=== PATIENT | female | born 1960 | race Caucasian/White ===

== ENCOUNTER 2016-04-21 18:11 | Emergency (ER) | payer OTHER ==
[2016-04-21 18:16] VITALS: RESP 16
[2016-04-21] MEDS ORDERED: HYDROcodone/APAP 5-325MG 1 EACH TAB PO STA (19:09)
--- NOTE | 2016-04-21 19:43 | XR ---
EXAMINATION TYPE: XR Hip Complete LT DATE OF EXAM: 04/21/2016 7:32 PM COMPARISON: 06/28/2014 HISTORY: Hip pain TECHNIQUE: 2 views FINDINGS: There is a left hip prosthesis. I see no fracture nor dislocation. Sacroiliac joint appears normal. IMPRESSION: Left hip prosthesis without evidence of fracture. No change.
--- NOTE | 2016-04-21 19:44 | XR ---
EXAMINATION TYPE: XR knee 4V LT DATE OF EXAM: 04/21/2016 7:32 PM COMPARISON: NONE HISTORY: Knee pain TECHNIQUE: 4 views FINDINGS: I see no fracture nor dislocation. Joint spaces are normal. There is no sign of knee joint effusion. IMPRESSION: Negative left knee exam.
--- NOTE | 2016-04-21 20:10 | ED ---
Fall HPI - General Chief Complaint: Fall Stated Complaint: Fall-Knee Pain Time Seen by Provider: 04/21/16 18:13 Source: patient Mode of arrival: EMS - History of Present Illness Initial Comments: 55-year-old female presented for evaluation of left knee pain following mechanical fall while leaving her house. She states that she tripped over an object in her home causing her to fall forward onto her outstretched arms and knees. She denies any right knee pain and further denies any injury to the hands and wrists or elbows. Her left knee was quite sore and she was unable to get up requiring police assistance. She states that she is able to move the knee flexing and extending at but had significant pain upon weight- bearing. She is able to move the foot distal to injury and there is no change in her neurovascular status although she states a long-standing history of neuropathy to bilateral lower extremities. She denies any head trauma, anticoagulation use, or loss of consciousness. - Related Data Home Medications Medication Instructions Recorded Confirmed Amantadine HCl [Symmetrel] 100 mg PO TID 02/07/15 01/25/16 Gabapentin [Neurontin] 400 mg PO TID 02/07/15 01/25/16 Levothyroxine Sodium [Synthroid] 150 mcg PO DAILY 02/07/15 01/25/16 hydrOXYzine PAMOATE [Vistaril] 50 mg PO TID 02/07/15 01/25/16 traZODone HCL 150 mg PO HS 03/06/15 01/25/16 Escitalopram [Lexapro] 30 mg PO DAILY 01/25/16 01/25/16 Hair, Skin, And Nails 3 tab PO DAILY 01/25/16 01/25/16 OXcarbazepine [Trileptal] 600 mg PO BID 01/25/16 01/25/16 Topiramate [Topamax] 50 mg PO BID 01/25/16 01/25/16 busPIRone HCL [Buspar] 30 mg PO BID 01/25/16 01/25/16 Previous Rx's Medication Instructions Recorded Albuterol Inhaler [Ventolin Hfa 2 puff INHALATION RT-QID PRN #0 03/09/15 Inhaler] puff Budesonide-Formot 160-4.5 Mcg 2 puff INHALATION RT-BID #0 puff 03/09/15 [Symbicort 160-4.5 Mcg Inhaler] Aspirin 81 mg PO DAILY #1 chewable 01/25/16 Atorvastatin Calcium [Lipitor] 40 mg PO DAILY #30 tab 01/25/16 Lisinopril-Hctz 10-12.5 mg 1 each PO DAILY tab 01/25/16 [Zestoretic 10-12.5] Metoprolol Tartrate [Lopressor] 50 mg PO BID #60 tab 01/25/16 Nicotine 21Mg/24Hr Patch [Habitrol] 1 patch TRANSDERM DAILY #14 patch 01/25/16 Nitroglycerin Sl Tabs [Nitrostat] 0.4 mg SUBLINGUAL Q5M PRN #25 tab 01/25/16 HYDROcodone/APAP 5-325MG [[place] 1 - 2 tab PO Q6HR PRN #14 tab 04/21/16 5-325] Ibuprofen [Motrin] 800 mg PO Q8HR PRN #20 tab 04/21/16 Allergies Allergy/AdvReac Type Severity Reaction Status Date / Time Penicillins Allergy Itching Verified 04/21/16 18:28 Review of Systems ROS Statement: Those systems with pertinent positive or pertinent negative responses have been documented in the HPI. ROS Other: All systems not noted in ROS Statement are negative. Constitutional: Denies: fever, chills Eyes: Denies: eye pain, eye discharge ENT: Denies: dental pain, epistaxis, congestion Respiratory: Denies: cough, dyspnea Cardiovascular: Denies: chest pain, palpitations Gastrointestinal: Denies: abdominal pain, nausea, vomiting Genitourinary: Denies: urgency, dysuria Musculoskeletal: Reports: other (Left knee pain with mild swelling; denies any discoloration). Denies: back pain, joint swelling, myalgia Skin: Denies: rash, lesions Neurological: Denies: headache, weakness Past Medical History Past Medical History: Asthma, Chest Pain / Angina, Heart Failure, COPD, Eye Disorder, Fibromyalgia, Hyperlipidemia, Hypertension, Osteoarthritis (OA), Thyroid Disorder Additional Past Medical History / Comment(s): NIDDM type II, diabetic neuropathy in hands and feet, hypothyroid, bilateral cataracts, migraines, IBS, chronic pain, limited ROM L arm-"shoulder cartlidge problem". History of Any Multi-Drug Resistant Organisms: None Reported Past Surgical History: Joint Replacement, Orthopedic Surgery, Tubal Ligation Additional Past Surgical History / Comment(s): right foot surgery, total left hip arthroplasty, lumbar puncture, R breast surgery for horse bite wound, colonoscopy, 2003 cardiac cath-normal. Past Anesthesia/Blood Transfusion Reactions: No Reported Reaction Past Psychological History: ADD/ADHD, Anxiety, Bipolar, Depression Additional Psychological History / Comment(s): Pt resides with her daughter. She uses a cane prn. She drives. Pt states she has depression and has been suicidal in the past but not now or recently. No suicidal thoughts or plans at this time. She states she did attempt suicide years ago by cutting her wrists. 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 Past Drug Use History: None Reported - Past Family History Mother History Unknown: Yes Family Medical History: Pulmonary Embolus Father History Unknown: Yes Additional Family Medical History / Comment(s): Pt was adopted. General Exam Limitations: no limitations General appearance: alert, in no apparent distress Head exam: Present: atraumatic, normocephalic Eye exam: Present: normal appearance, EOMI ENT exam: Present: normal exam, normal oropharynx Neck exam: Present: normal inspection. Absent: tenderness Respiratory exam: Present: normal lung sounds bilaterally. Absent: respiratory distress Cardiovascular Exam: Present: regular rate, normal rhythm. Absent: bradycardia , tachycardia GI/Abdominal exam: Present: soft. Absent: distended, tenderness Rectal exam: Present: deferred Extremities exam: Present: full ROM, tenderness, other (Pain to left knee with passive flexion but maintains full range of motion; mild tenderness to palpation at the patellar ligament; negative joint space tenderness to palpation on the lateral and medial sides; intact popliteal pulse) Back exam: Present: normal inspection, full ROM. Absent: tenderness Neurological exam: Present: alert, altered, oriented X3 Psychiatric exam: Present: normal affect, normal mood Skin exam: Present: warm, dry, intact Course Vital Signs 04/21/16 18:12 Temperature 97.9 F Pulse Rate 56 L Respiratory 16 Rate Blood Pressure 157/98 O2 Sat by Pulse 97 Oximetry Medical Decision Making - Medical Decision Making 55-year-old female presented for evaluation of left knee pain after mechanical fall from standing. There are no other injuries, she denies loss of consciousness, she denies anticoagulation use, and she denies any head or neck pain. Physical examination reveals left knee tenderness at the patellar ligament without any joint space pain to palpation. She has a normal popliteal artery pulse to palpation. She maintains motor and sensation distal to the injury at her feet and has an intact dorsalis pedis pulse. She has full passive range of motion of the left knee with some mild tenderness at maximum flexion. We'll obtain an x-ray of the knee and provide pain control. X-ray shows no acute osseous abnormality and no joint effusion. The patient was reevaluated and had improvement in her pain. She was given a knee immobilizer and instructed to follow-up with an orthopedic surgeon. She was also instructed to schedule a follow up appointment with her PCP but to return if her symptoms should worsen or persist. SHe acknowledged an understanding of this information and agreed with this plan of care. Disposition Clinical Impression: Fall, Contusion of left knee Disposition: HOME SELF-CARE Condition: Stable Instructions: Knee Pain (ED), Swollen Knee Joint (ED) Additional Instructions: Please use medication as discussed. Please follow up with family doctor if symptoms have not improved over the next two days. Please return to the emergency room if your symptoms increase or worsen or for any other concerns. Prescriptions: HYDROcodone/APAP 5-325MG [[place] 5-325] 1 - 2 tab PO Q6HR PRN #14 tab PRN Reason: Analgesia Ibuprofen [Motrin] 800 mg PO Q8HR PRN #20 tab PRN Reason: Analgesia Referrals: Erich Milner MD [Primary Care Provider] - 1-2 days Time of Disposition: 20:10
[2016-04-21 20:22] VITALS: BP 164/98; PULSE 61; TEMP 97.8
== END 2016-04-21 20:21 | disposition home or self-care (01) ==
LOC: EC 18:11
DX: S80.02XA Contusion of left knee, initial encounter (principal); W01.0XXA Fall on same level from slipping, tripping and stumbling without subsequent striking against object, initial encounter; J44.9 Chronic obstructive pulmonary disease, unspecified; E78.5 Hyperlipidemia, unspecified; M79.7 Fibromyalgia; I10 Essential (primary) hypertension; E11.40 Type 2 diabetes mellitus with diabetic neuropathy, unspecified; E03.9 Hypothyroidism, unspecified; Z79.899 Other long term (current) drug therapy; Z79.82 Long term (current) use of aspirin; Z88.0 Allergy status to penicillin; F17.200 Nicotine dependence, unspecified, uncomplicated; F41.9 Anxiety disorder, unspecified; F32.9 Major depressive disorder, single episode, unspecified
CPT/HCPCS: 73502; 99283

== ENCOUNTER 2016-10-25 11:05 | Day surgery (SDC) | payer OTHER ==
[2016-10-23 14:48] VITALS: BMI 38.8
[2016-10-25 12:05] VITALS: TEMP 98.6
[2016-10-25] MEDS: LACTATED RINGERS 1,000 ML IV SCH ×2 (12:12→12:18)
[2016-10-25] MEDS ORDERED: LIDOCAINE 1% 20 ML VIAL (10MG/ML) FOR IV START INTRADERMA ONE (12:12)
[2016-10-25] MEDS ORDERED: PROPOFOL 10 MG/ML 20 ML VIAL IV ONE (12:21)
--- NOTE | 2016-10-25 12:48 | P.PCN ---
Date of Procedure: 10/25/16 Preoperative Diagnosis: Postoperative Diagnosis: Procedure(s) Performed: Procedure: Colonoscopy and polypectomy. Preoperative diagnosis: Screening for neoplasia. Postoperative diagnosis: Distal sigmoid polyp snared but no large polyps or cancer. Preparation: HalfLytely prep. Sedation: Was provided by anesthesia. Brief clinical history: The patient is a 56-year-old female who is scheduled for this evaluation for screening for neoplasia.. Her last exam was in March 2010. The patient has no abdominal complaints, bleeding or anemia. Procedure: With the patient on her left lateral decubitus position and after informed consent and adequate sedation, the perianal area was inspected and it did not show any fissures or fistulas. There were no masses felt on digital rectal examination. The Olympus CFQ 160L video colonoscope was then inserted in the rectum in the usual fashion and advanced to the cecum. There was a small polyp in the distal sigmoid which I snared and retrieved by suction but there were no large polyps or cancer. The mucosa appeared healthy. No obvious diverticular disease or other pathology. I retroflexed endoscope in the rectum before the endoscope was withdrawn. The patient tolerated the procedure well. Plan: The patient was reassured. She will follow-up with you as planned and I anticipate repeating this exam in 5 years. Implants: Indications for Procedure: Operative Findings: Description of Procedure:
[2016-10-25 12:53] VITALS: RESP 16
[2016-10-25 13:09] VITALS: BP 148/67; PULSE 56
== END 2016-10-25 14:11 | disposition home or self-care (01) ==
LOC: ORWHC2ENDO 11:05
DX: Z12.11 Encounter for screening for malignant neoplasm of colon (principal); K63.5 Polyp of colon; J44.9 Chronic obstructive pulmonary disease, unspecified; I10 Essential (primary) hypertension; E78.5 Hyperlipidemia, unspecified; M79.7 Fibromyalgia; M19.90 Unspecified osteoarthritis, unspecified site; M06.9 Rheumatoid arthritis, unspecified; E07.9 Disorder of thyroid, unspecified; G62.9 Polyneuropathy, unspecified; Z79.891 Long term (current) use of opiate analgesic; Z79.899 Other long term (current) drug therapy; Z88.0 Allergy status to penicillin; Z72.0 Tobacco use
CPT/HCPCS: 88305; 45385; J2704

== ENCOUNTER 2017-12-01 15:17 | Observation (INO) | payer OTHER ==
[2017-12-01 15:27] VITALS: RESP 18
[2017-12-01] MEDS ORDERED: ASPIRIN 81 MG PO STA (15:32)
[2017-12-01] MEDS ORDERED: NITROGLYCERIN OINT 1 INCH/GM PACKET TOPICAL STA (15:32)
--- NOTE | 2017-12-01 15:35 | ED ---
General Adult HPI - General Chief complaint: Chest Pain Stated complaint: Chest pain Time Seen by Provider: 12/01/17 15:29 Source: patient, EMS, RN notes reviewed Mode of arrival: EMS Limitations: no limitations - History of Present Illness Initial comments: Patient is a pleasant 57-year-old female presenting to the emergency Department with chest discomfort. Onset was around 1:30. Symptoms were somewhat severe however now are near resolved. Discomfort feels like tightness and ache in the chest without radiation. There was some associated dyspnea. There was some associated nausea. Patient did feel sweaty however feels sweaty all the time. Patient has had similar symptoms previously with negative cardiac evaluation. Patient does have history of stent placement approximately 30 years ago. - Related Data Home Medications Medication Instructions Recorded Confirmed Levothyroxine Sodium [Synthroid] 150 mcg PO DAILY 02/07/15 12/01/17 OXcarbazepine [Trileptal] 600 mg PO BID 01/25/16 12/01/17 busPIRone HCL [Buspar] 30 mg PO BID 01/25/16 12/01/17 Albuterol Inhaler [Ventolin Hfa 2 puff INHALATION RT-QID PRN 10/23/16 12/01/17 Inhaler] Budesonide-Formot 160-4.5 Mcg 2 puff INHALATION RT-BID PRN 10/23/16 12/01/17 [Symbicort 160-4.5 Mcg Inhaler] traZODone HCL 100 mg PO HS 10/23/16 12/01/17 Atorvastatin Calcium [Lipitor] 80 mg PO HS 12/01/17 12/01/17 Baclofen 10 mg PO HS 12/01/17 12/01/17 Cholecalciferol [Vitamin D3] 1,000 unit PO DAILY 12/01/17 12/01/17 Cyanocobalamin (Vitamin B-12) 1,000 mcg PO DAILY 12/01/17 12/01/17 [Vitamin B-12] Escitalopram Oxalate [Lexapro] 40 mg PO DAILY 12/01/17 12/01/17 Etodolac [Lodine] 400 mg PO BID 12/01/17 12/01/17 Lisinopril Unknown Dose 1 tab PO HS 12/01/17 12/01/17 Metoprolol Tartrate [Lopressor] 50 mg PO DAILY 12/01/17 12/01/17 Multivitamins, Thera [Multivitamin 1 tab PO DAILY 12/01/17 12/01/17 (formulary)] Propranolol HCl [Inderal] 120 mg PO BID 12/01/17 12/01/17 metFORMIN HCL 1,000 mg PO BID 12/01/17 12/01/17 Previous Rx's Medication Instructions Recorded Nitroglycerin Sl Tabs [Nitrostat] 0.4 mg SUBLINGUAL Q5M PRN #25 tab 01/25/16 Allergies Allergy/AdvReac Type Severity Reaction Status Date / Time Penicillins Allergy Severe Itching Verified 12/01/17 15:30 Review of Systems ROS Statement: Those systems with pertinent positive or pertinent negative responses have been documented in the HPI. ROS Other: All systems not noted in ROS Statement are negative. Constitutional: Denies: fever Eyes: Denies: eye pain ENT: Denies: ear pain Respiratory: Denies: cough Cardiovascular: Reports: as per HPI, chest pain Endocrine: Denies: fatigue Gastrointestinal: Denies: abdominal pain Genitourinary: Denies: dysuria Musculoskeletal: Denies: back pain Skin: Denies: rash Neurological: Denies: weakness Past Medical History Past Medical History: Asthma, Chest Pain / Angina, COPD, Eye Disorder, Fibromyalgia, Hyperlipidemia, Hypertension, Osteoarthritis (OA), Pneumonia, Rheumatoid Arthritis (RA) Additional Past Medical History / Comment(s): migraines, diabetic neuropathy in hands and feet, bilateral cataracts, limited ROM billy arm-"shoulder cartlidge problem". swelling of lower legs and feet, History of Any Multi-Drug Resistant Organisms: None Reported Past Surgical History: Heart Catheterization, Joint Replacement, Orthopedic Surgery, Tubal Ligation Additional Past Surgical History / Comment(s): right foot surgery, total left hip arthroplasty, lumbar puncture, R breast surgery for horse bite wound, Past Anesthesia/Blood Transfusion Reactions: Motion Sickness Past Psychological History: ADD/ADHD, Anxiety, Bipolar, Depression Smoking Status: Current every day smoker Past Alcohol Use History: None Reported Past Drug Use History: None Reported - Past Family History Mother History Unknown: Yes Family Medical History: Unable to Obtain Additional Family Medical History / Comment(s): pt adopted-no hx Father History Unknown: Yes Additional Family Medical History / Comment(s): Pt was adopted. General Exam Limitations: no limitations General appearance: alert, in no apparent distress Head exam: Present: atraumatic Eye exam: Present: normal appearance, PERRL ENT exam: Present: normal oropharynx Neck exam: Present: normal inspection Respiratory exam: Present: normal lung sounds bilaterally Cardiovascular Exam: Present: regular rate, normal rhythm Expanded Peripheral pulses: 2+: Radial (R), Radial (L), Posterior Tibialis (R), Posterior Tibialis (L) GI/Abdominal exam: Present: soft. Absent: tenderness Extremities exam: Present: pedal edema (Patient states chronic). Absent: calf tenderness Neurological exam: Present: alert Psychiatric exam: Present: normal affect, normal mood Skin exam: Present: normal color Course Vital Signs 12/01/17 12/01/17 15:24 16:28 Temperature 98.7 F Pulse Rate 66 59 L Respiratory 18 18 Rate Blood Pressure 166/74 144/66 O2 Sat by Pulse 92 L 98 Oximetry EKG Findings - EKG Comments: EKG Findings:: Normal sinus rhythm 60. AK 198. QRS 78. QT 436. QTc 436. Normal axis. Normal QRS. No acute ST change. Medical Decision Making - Medical Decision Making Patient reevaluated and resting comfortably in bed. No discomfort at this time. Patient updated on results and plan. Dr. ralph has been paged for hospital admission. Patient was also updated on abnormal CT findings and need for further follow-up and investigation regarding this. - Lab Data Result diagrams: 12/01/17 15:15 12/01/17 15:15 Lab Results 12/01/17 12/01/17 12/01/17 Range/Units 15:15 15:15 15:15 WBC 7.1 (3.8-10.6) k/uL RBC 4.04 (3.80-5.40) m/uL Hgb 11.4 (11.4-16.0) gm/dL Hct 35.7 (34.0-46.0) % MCV 88.4 (80.0-100.0) fL MCH 28.3 (25.0-35.0) pg MCHC 32.1 (31.0-37.0) g/dL RDW 14.8 (11.5-15.5) % Plt Count 256 (150-450) k/uL Neutrophils % 55 % Lymphocytes % 31 % Monocytes % 5 % Eosinophils % 6 % Basophils % 0 % Neutrophils # 3.9 (1.3-7.7) k/uL Lymphocytes # 2.2 (1.0-4.8) k/uL Monocytes # 0.3 (0-1.0) k/uL Eosinophils # 0.5 (0-0.7) k/uL Basophils # 0.0 (0-0.2) k/uL PT (9.0-12.0) sec INR (<1.2) APTT (22.0-30.0) sec D-Dimer (<0.60) mg/L FEU Sodium 142 (137-145) mmol/L Potassium 4.3 (3.5-5.1) mmol/L Chloride 109 H (98-107) mmol/L Carbon Dioxide 28 (22-30) mmol/L Anion Gap 5 mmol/L BUN 10 (7-17) mg/dL Creatinine 0.65 (0.52-1.04) mg/dL Est GFR (CKD-EPI)AfAm >90 (>60 ml/min/1.73 sqM) Est GFR (CKD-EPI)NonAf >90 (>60 ml/min/1.73 sqM) Glucose 145 H (74-99) mg/dL Calcium 8.8 (8.4-10.2) mg/dL Magnesium 1.9 (1.6-2.3) mg/dL Total Bilirubin 0.3 (0.2-1.3) mg/dL AST 30 (14-36) U/L ALT 31 (9-52) U/L Alkaline Phosphatase 119 (38-126) U/L Total Creatine Kinase 79 (30-135) U/L CK-MB (CK-2) 1.2 (0.0-2.4) ng/mL CK-MB (CK-2) Rel Index 1.5 Troponin I <0.012 (0.000-0.034) ng/mL NT-Pro-B Natriuret Pep pg/mL Total Protein 6.0 L (6.3-8.2) g/dL Albumin 3.3 L (3.5-5.0) g/dL 12/01/17 12/01/17 Range/Units 15:15 15:15 WBC (3.8-10.6) k/uL RBC (3.80-5.40) m/uL Hgb (11.4-16.0) gm/dL Hct (34.0-46.0) % MCV (80.0-100.0) fL MCH (25.0-35.0) pg MCHC (31.0-37.0) g/dL RDW (11.5-15.5) % Plt Count (150-450) k/uL Neutrophils % % Lymphocytes % % Monocytes % % Eosinophils % % Basophils % % Neutrophils # (1.3-7.7) k/uL Lymphocytes # (1.0-4.8) k/uL Monocytes # (0-1.0) k/uL Eosinophils # (0-0.7) k/uL Basophils # (0-0.2) k/uL PT 10.1 (9.0-12.0) sec INR 1.0 (<1.2) APTT 25.3 (22.0-30.0) sec D-Dimer 0.80 H (<0.60) mg/L FEU Sodium (137-145) mmol/L Potassium (3.5-5.1) mmol/L Chloride (98-107) mmol/L Carbon Dioxide (22-30) mmol/L Anion Gap mmol/L BUN (7-17) mg/dL Creatinine (0.52-1.04) mg/dL Est GFR (CKD-EPI)AfAm (>60 ml/min/1.73 sqM) Est GFR (CKD-EPI)NonAf (>60 ml/min/1.73 sqM) Glucose (74-99) mg/dL Calcium (8.4-10.2) mg/dL Magnesium (1.6-2.3) mg/dL Total Bilirubin (0.2-1.3) mg/dL AST (14-36) U/L ALT (9-52) U/L Alkaline Phosphatase (38-126) U/L Total Creatine Kinase (30-135) U/L CK-MB (CK-2) (0.0-2.4) ng/mL CK-MB (CK-2) Rel Index Troponin I (0.000-0.034) ng/mL NT-Pro-B Natriuret Pep 298 pg/mL Total Protein (6.3-8.2) g/dL Albumin (3.5-5.0) g/dL - Radiology Data Radiology results: report reviewed (CT angios of the chest negative for pulmonary embolism. There is coarse interstitial infiltrates that could be related to fibrosis or sarcoidosis.), image reviewed (Checks x-ray does show diffuse interstitial changes.) Disposition Clinical Impression: Chest pain Disposition: ADMITTED IP TO THIS HOSP Is patient prescribed a controlled substance at d/c from ED?: No Referrals: None,Stated [Primary Care Provider] - 1-2 days Decision Time: 17:35
[2017-12-01 15:44] LABS: Basophils % (A) 0 %; Eosinophils # (A) 0.5 k/uL (0-0.7); Eosinophils % (A) 6 %; HCT 35.7 % (34.0-46.0); HGB 11.4 gm/dL (11.4-16.0); Lymphocytes # (A) 2.2 k/uL (1.0-4.8); Lymphocytes % (A) 31 %; MCH 28.3 pg (25.0-35.0); MCHC 32.1 g/dL (31.0-37.0); MCV 88.4 fL (80.0-100.0); Mean Platelet Volume 6.6; Monocytes # (A) 0.3 k/uL (0-1.0); Monocytes % (A) 5 %; Neutrophils # (A) 3.9 k/uL (1.3-7.7); Neutrophils % (A) 55 %; Platelet Count 256 k/uL (150-450); RBC 4.04 m/uL (3.80-5.40); RDW 14.8 % (11.5-15.5); WBC 7.1 k/uL (3.8-10.6)
[2017-12-01 15:55] LABS: ALT 31 U/L (9-52); AST 30 U/L (14-36); Albumin 3.3 g/dL (3.5-5.0); Alkaline Phosphatase 119 U/L (38-126); Anion Gap 5 mmol/L; Blood Urea Nitrogen 10 mg/dL (7-17); Calcium 8.8 mg/dL (8.4-10.2); Carbon Dioxide 28 mmol/L (22-30); Chloride 109 mmol/L (98-107); Glucose 145 mg/dL (74-99); Magnesium 1.9 mg/dL (1.6-2.3); Potassium 4.3 mmol/L (3.5-5.1); Sodium 142 mmol/L (137-145); Total Bilirubin 0.3 mg/dL (0.2-1.3)
--- NOTE | 2017-12-01 15:55 | XR ---
EXAMINATION TYPE: XR chest 2V DATE OF EXAM: 12/01/2017 COMPARISON: 01/25/2016 HISTORY: Chest pain TECHNIQUE: Frontal and lateral views of the chest are obtained. FINDINGS: There is coarse pulmonary interstitial infiltrates. There is no pleural effusion. There ar e chest leads. IMPRESSION: Pulmonary infiltrates are increased compared to old exam. Congestive heart failure is po ssible. I see no pleural fluid however to suggest heart failure. This could relate to progressive pul monary fibrosis.
[2017-12-01 15:57] LABS: Partial Thromboplastin Time 25.3 sec (22.0-30.0); Prothrombin Time 10.1 sec (9.0-12.0)
[2017-12-01 15:59] LABS: Creatine Kinase 79 U/L (30-135)
[2017-12-01 16:00] LABS: D-Dimer 0.8 mg/L FEU (<0.60)
[2017-12-01 16:13] LABS: Creatine Kinase MB 1.2 ng/mL (0.0-2.4); Troponin I <0.012 ng/mL (0.000-0.034)
--- NOTE | 2017-12-01 16:48 | CT ---
EXAMINATION TYPE: CT angio chest DATE OF EXAM: 12/01/2017 4:30 PM COMPARISON: 02/04/2016 HISTORY: Sternal pain and pressure. CT DLP: 624 mGycm Automated exposure control for dose reduction was used. CONTRAST: CTA scan of the thorax is performed with IV Contrast, patient injected with 64 mL of Isovue 370, pulm onary embolism protocol. There are 3-D post processed images.. FINDINGS: There is general coarsening interstitial infiltrate throughout the lungs. Heart is slightly enlarged. There is no pleural effusion. There are multiple mediastinal and bronchial lymph nodes measure up to 1.5 cm. Thoracic aorta is intact. There is no evidence of aneurysm or dissection. There is no perica rdial effusion. I see no filling defects in the pulmonary arteries.. The bony thorax is intact. There is spurring in the thoracic spine. IMPRESSION: NO EVIDENCE OF PULMONARY EMBOLISM. MEDIASTINAL AND BRONCHIAL ADENOPATHY. EXTENSIVE COARSE INTERSTITIA L PULMONARY INFILTRATES ARE WORSE THAN OLD EXAM AND THIS COULD RELATE TO PROMINENT FIBROSIS AND SARCO IDOSIS.
[2017-12-01] MEDS ORDERED: NITROGLYCERIN SL TABS 0.4 MG TAB SUBLINGUAL PRN ×2 (17:35→19:22)
[2017-12-01] MEDS ORDERED: ALBUTEROL NEBULIZED 2.5 MG/3 ML INHALATION PRN (19:22)
[2017-12-01] MEDS ORDERED: SYMBICORT 160-4.5 MCG INHALER INHALATION PRN (19:22)
[2017-12-01] MEDS ORDERED: ACETAMINOPHEN TAB 325 MG TAB PO PRN (19:24)
[2017-12-01] MEDS ORDERED: HYDROcodone/APAP 5-325MG 1 EACH TAB PO PRN (20:18)
[2017-12-01] MEDS ORDERED: HYDROmorphone 1 MG/ML 1 ML SYRINGE IVP PRN (20:18)
[2017-12-01] MEDS ORDERED: TEMAZEPAM 15 MG CAP PO PRN (20:18)
[2017-12-01 20:22] LABS: Glucose,Whole Blood 146 mg/dL (75-99)
[2017-12-01] MEDS: NICOTINE 21MG/24HR PATCH TRANSDERM SCH (20:22)
[2017-12-01] MEDS: OXcarbazepine 300 MG TAB PO SCH (20:23)
[2017-12-01] MEDS: traMADol 50 MG TAB PO SCH (20:23)
[2017-12-01] MEDS: metFORMIN 500 MG TAB PO SCH (20:23)
[2017-12-01] MEDS: busPIRone HCl 10 MG TAB PO SCH (20:24)
[2017-12-01] MEDS: INSULIN ASPART 100 UNIT/ML 1 ML 10 ML VIAL SQ SCH (20:25)
[2017-12-01] MEDS: PANTOPRAZOLE 40 MG/10 ML VIAL IVP SCH (20:25)
[2017-12-01] MEDS ORDERED: BACLOFEN 10 MG TAB PO SCH (21:00)
[2017-12-01] MEDS ORDERED: [UNRECOGNIZED DRUG - OTHER] PO SCH (21:00)
[2017-12-01] MEDS ORDERED: ATORVASTATIN 80 MG TAB PO SCH (21:00)
[2017-12-01] MEDS ORDERED: traZODone HCL 100 MG TAB PO SCH (21:00)
[2017-12-01 22:08] LABS: Creatine Kinase 73 U/L (30-135)
[2017-12-01 22:21] LABS: Creatine Kinase MB 0.9 ng/mL (0.0-2.4); Troponin I <0.012 ng/mL (0.000-0.034)
--- NOTE | 2017-12-01 22:47 | HP ---
HISTORY AND PHYSICAL DATE OF SERVICE: 12/01/2017 CHIEF COMPLAINT: Chest pain. HISTORY OF PRESENT ILLNESS: This 57-year-old woman with a past history of asthma, COPD, diabetes type 2, fibromyalgia, hyperlipidemia, being followed by primary physician in the [facility], was complaining of chest pain. The pain was felt in the anterior part of the chest, at about 1:30 in the morning. It was sharp in character with subsequently tightness was felt. There was no shortness of breath and nausea. The patient also felt sweaty also. There is no radiation of pain elsewhere. Otherwise, patient came to [facility] and was admitted for further evaluation. The patient had history of stent placement apparently 30 years ago. The patient apparently had unsuccessful attempts at stress test previously according to her. There is no history of fever or rigors. No headache, loss of consciousness, seizures. PAST MEDICAL HISTORY: History of asthma, COPD, diabetes type 2, hypertension, hypertension, DJD, history of pneumonia. MEDICATIONS: 1. Home medications are lisinopril 1 tablet p.o. daily. 2. Metformin 1000 mg p.o. b.i.d. 3. Lodine 400 mg b.i.d. 4. Trazodone 100 mg at bedtime. 5. BuSpar 30 mg b.i.d. 6. Inderal 120 mg p.o. b.i.d. 7. Trileptal 600 mg b.i.d. 8. Nitroglycerin 0.6 mg p.r.n. 9. Multivitamins 1 p.o. daily. 10.Lopressor 50 mg daily. 11.Synthroid 150 mcg p.o. daily. 12.Lexapro 40 mg daily. 13.Vitamin B 2000 mcg daily. 14.Vitamin D 3000 daily. 15.Symbicort 0.5 two puffs b.i.d. 16.Baclofen 10 mg at bedtime. 17.Lipitor 80 mg at bedtime. 18.Albuterol 2 puffs q.i.d. p.r.n. ALLERGIES: PENICILLIN. FAMILY HISTORY: The patient is adopted. SOCIAL HISTORY: History of smoking, continued, ongoing. No alcohol intake. REVIEW OF SYSTEMS: ENT: No diminished vision or hearing. CARDIOVASCULAR: As mentioned. GI: As mentioned. : No dysuria. NERVOUS SYSTEM: No numbness or weakness. ALLERGY/IMMUNOLOGY: As mentioned earlier. HEMATOLOGY/ONCOLOGY: No history of anemia. CONSTITUTIONAL: As mentioned earlier. PSYCHIATRY: As mentioned. PHYSICAL EXAMINATION: Alert, oriented x3. Pulse 59, blood pressure 130/68, respirations 18, temperature 98.6, pulse ox 98% on 2 L. HEENT: Conjunctivae normal. Oral mucosa moist. NECK: No jugular venous distention. No lymph node enlargement. CARDIOVASCULAR: S1, S2 muffled. esm + No S3. LUNGS: Breath sounds diminished in the bases. Few scattered rhonchi. No crackles. ABDOMEN: Soft, nontender. No mass palpable. EXTREMITIES: Legs no edema. No swelling. NERVOUS SYSTEM: Higher functions as mentioned. Moves all limbs equally. LYMPHATICS: No lymph node enlargement in the neck, axillae or groin. SKIN: No rash. LABS: CBC within normal. D-dimer 0.8. Glucose 145. ASSESSMENT: 1. Chest pain, possible unstable angina. 2. History of coronary artery disease with stent. 3. History of asthma. 4. History of chronic obstructive pulmonary disease. 5. Diabetes mellitus type 2. 6. Continued ongoing nicotine dependence. h/o mild as 7. Fibromyalgia. 8. Hypertension. 9. Obesity with body mass index of 402. 10.Degenerative joint disease. 11.Rheumatoid arthritis. 12.History of migraines. 13.History of attention deficit hyperactive disorder. 14.History of bipolar depression. RECOMMENDATIONS: Recommend to continue current medications and symptomatic treatment. Otherwise at this time I recommend to rule out myocardial infarction as per protocol. Otherwise closely follow with Cardiology. Possible stress test or cardiac cath. Guarded prognosis because of multiple complex medical issues. Further recommendations to follow. We will monitor blood sugars closely. Resume the home medications. Discussed with the patient who understands and consents. MMODL / IJN: [id number] / МАРИЯ
[2017-12-02 01:20] LABS: Appearance,Urine Clear (Clear); Bilirubin,Urine 2+ (Negative); Blood,Urine Negative (Negative); Color,Urine Yellow; Glucose,Urine (UA) Negative (Negative); Ketones,Urine Negative (Negative); Leukocyte Esterase,Urine Negative (Negative); Nitrite,Urine Negative (Negative); Protein,Urine Negative (Negative); Specific Gravity,Urine 1.028 (1.001-1.035); Urobilinogen,Urine <2.0 mg/dL (<2.0)
[2017-12-02] MEDS: NITROGLYCERIN OINT 1 INCH/GM PACKET TOPICAL SCH ×2 (02:54→05:15)
[2017-12-02] MEDS: ALPRAZolam 0.25 MG TAB PO PRN ×2 (02:58→14:33)
[2017-12-02 02:59] LABS: Basophils % (A) 0 %; Eosinophils # (A) 0.5 k/uL (0-0.7); Eosinophils % (A) 6 %; HCT 35.7 % (34.0-46.0); HGB 11.5 gm/dL (11.4-16.0); Lymphocytes # (A) 2.6 k/uL (1.0-4.8); Lymphocytes % (A) 32 %; MCH 28.5 pg (25.0-35.0); MCHC 32.3 g/dL (31.0-37.0); MCV 88.2 fL (80.0-100.0); Mean Platelet Volume 7.8; Monocytes # (A) 0.3 k/uL (0-1.0); Monocytes % (A) 4 %; Neutrophils # (A) 4.6 k/uL (1.3-7.7); Neutrophils % (A) 57 %; Platelet Count 231 k/uL (150-450); RBC 4.04 m/uL (3.80-5.40); WBC 8.1 k/uL (3.8-10.6)
[2017-12-02] MEDS ORDERED: PROCHLORPERAZINE 5 MG TAB PO PRN (03:02)
[2017-12-02 03:23] LABS: Creatine Kinase 69 U/L (30-135)
[2017-12-02 03:25] LABS: Anion Gap 7 mmol/L; Blood Urea Nitrogen 11 mg/dL (7-17); Calcium 9.1 mg/dL (8.4-10.2); Carbon Dioxide 28 mmol/L (22-30); Chloride 106 mmol/L (98-107); Cholesterol 117 mg/dL (<200); Glucose 121 mg/dL (74-99); HDL Cholesterol 51 mg/dL (40-60); LDL Cholesterol,Calculated 34 mg/dL (0-99); Potassium 4.1 mmol/L (3.5-5.1); Sodium 141 mmol/L (137-145); Triglycerides 158 mg/dL (<150)
[2017-12-02 03:34] LABS: Creatine Kinase MB 0.8 ng/mL (0.0-2.4); Troponin I <0.012 ng/mL (0.000-0.034)
[2017-12-02] MEDS ORDERED: LEVOTHYROXINE 75 MCG TAB PO SCH (06:30)
[2017-12-02 07:16] LABS: Glucose,Whole Blood 134 mg/dL (75-99)
[2017-12-02] MEDS: INSULIN ASPART 100 UNIT/ML 1 ML 10 ML VIAL SQ SCH ×2 (08:45→12:55)
[2017-12-02] MEDS ORDERED: CHOLECALCIFEROL 1,000 UNIT TAB PO SCH (09:00)
[2017-12-02] MEDS ORDERED: ESCITALOPRAM 20 MG TAB PO SCH (09:00)
[2017-12-02] MEDS ORDERED: CYANOCOBALAMIN 500 MCG TAB PO SCH (09:00)
[2017-12-02] MEDS ORDERED: ASPIRIN 81 MG PO SCH (09:00)
[2017-12-02] MEDS ORDERED: METOPROLOL TARTRATE 50 MG TAB PO SCH (09:00)
[2017-12-02] MEDS ORDERED: ASPIRIN 325 MG TAB PO SCH (09:00)
[2017-12-02] MEDS: metFORMIN 500 MG TAB PO SCH (10:20)
--- NOTE | 2017-12-02 11:11 | P.CRDCN ---
History of Present Illness History of present illness: Mrs. France is a pleasant 57-year-old female past medical history significant for asthma, COPD, diabetes mellitus, dyslipidemia, hypertension, anxiety and depression. She denies history of coronary artery disease and doesn' t follow with a gas engine performance engineer for any reason. We have been asked to see her in consultation for chest pain. She complains of a stabbing chest pain yesterday while sitting down watching TV. The pain was in the mid-sternal region and radiated up into the left shoulder, left neck and down the left arm. The stabbing then turned into a heavy pressure described as an elephant sitting on her chest. She was short of breath, light headed and diaphoretic. The stabbing persisted for approximately 4 hours and then subsided on its own. The pressure has persisted and is still mildly present. She also has been coughing up yellow sputum the last week or so and feels increasingly short of breath beyond her baseline shortness of breath secondary to COPD. She is a chronic smoker with no interest in quiting. EKG reveals sinus mechanism with no acute ST or T-wave abnormalities noted. Chest xray shows pulmonary fibrosis. CTA chest negative for PE and again shows pulmonary fibrosis. Laboratory data reviewed, hemoglobin 11.5, platelets 231, sodium 141, potassium 4.1, magnesium 1.9, cardiac enzymes negative 3, NT proBNP 298, LDL 34 and HDL 51, triglycerides 158. Current cardiac medications include atorvastatin 80 mg daily, Lopressor 50 mg daily, propanolol 120 mg twice a day and she states she takes lisinopril but is unsure if the dose. Pharmacy she uses has been called and they have no record of lisinopril ever being filled. Most recent echocardiogram obtained 2016 reveals preserved LV systolic function with EF 60-65%. Most recent stress test done 2016 was a dobutamine stress echo which was inconclusive secondary to not achieving target heart rate. Review of Systems At the time of my exam: CONSTITUTIONAL: Denies fever. Denies chills. EYES: Denies blurred vision. Denies vision changes. Denies eye pain. EARS, NOSE, MOUTH & THROAT: Denies headache. Denies sore throat. Denies ear pain. CARDIOVASCULAR: Denies chest pain. Complains of shortness of breath. Denies orthopnea. Denies PND. Denies palpitations. RESPIRATORY: Denies cough. GASTROINTESTINAL: Denies abdominal pain. Denies diarrhea. Denies constipation. Denies nausea. Denies vomiting. MUSCULOSKELETAL: Denies myalgias. INTEGUMENTARY: Denies pruitis. Denies rash. NEUROLOGIC: Denies numbness. Denies tingling. Denies weakness. PSYCHIATRIC: Denies anxiety. Denies depression. ENDOCRINE: Denies fatigue. Denies weight change. Denies polydipsia. Denies polyurina. GENITOURINARY: Denies burning, hematuria or urgency with micturation. HEMATOLOGIC: Denies history of anemia. Denies bleeding. Past Medical History Past Medical History: Asthma, Chest Pain / Angina, COPD, Diabetes Mellitus, Eye Disorder, Fibromyalgia, Hyperlipidemia, Hypertension, Osteoarthritis (OA), Pneumonia, Rheumatoid Arthritis (RA) Additional Past Medical History / Comment(s): migraines, diabetic neuropathy in hands and feet, bilateral cataracts, limited ROM billy arm-"shoulder cartlidge problem". swelling of lower legs and feet, History of Any Multi-Drug Resistant Organisms: None Reported Past Surgical History: Heart Catheterization, Joint Replacement, Orthopedic Surgery, Tubal Ligation Additional Past Surgical History / Comment(s): right foot surgery, total left hip arthroplasty, lumbar puncture, R breast surgery for horse bite wound, Past Anesthesia/Blood Transfusion Reactions: Motion Sickness Past Psychological History: ADD/ADHD, Anxiety, Bipolar, Depression Additional Psychological History / Comment(s): Pt resides with her daughter. She uses a cane prn. She drives. Pt states she has depression and has been suicidal in the past but not now or recently. No suicidal thoughts or plans at this time. She states she did attempt suicide years ago by cutting her wrists. 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 smokes 1 PPD Past Drug Use History: None Reported - Past Family History Mother History Unknown: Yes Family Medical History: Unable to Obtain Additional Family Medical History / Comment(s): pt adopted-no hx Father History Unknown: Yes Additional Family Medical History / Comment(s): Pt was adopted. Medications and Allergies Home Medications Medication Instructions Recorded Confirmed Type Levothyroxine Sodium [Synthroid] 150 mcg PO DAILY 02/07/15 12/01/17 History Nitroglycerin Sl Tabs [Nitrostat] 0.4 mg SUBLINGUAL Q5M PRN #25 tab 01/25/16 Rx OXcarbazepine [Trileptal] 600 mg PO BID 01/25/16 12/01/17 History busPIRone HCL [Buspar] 30 mg PO BID 01/25/16 12/01/17 History Albuterol Inhaler [Ventolin Hfa 2 puff INHALATION RT-QID PRN 10/23/16 12/01/17 History Inhaler] Budesonide-Formot 160-4.5 Mcg 2 puff INHALATION RT-BID PRN 10/23/16 12/01/17 History [Symbicort 160-4.5 Mcg Inhaler] traZODone HCL 100 mg PO HS 10/23/16 12/01/17 History Atorvastatin Calcium [Lipitor] 80 mg PO HS 12/01/17 12/01/17 History Baclofen 10 mg PO HS 12/01/17 12/01/17 History Cholecalciferol [Vitamin D3] 1,000 unit PO DAILY 12/01/17 12/01/17 History Cyanocobalamin (Vitamin B-12) 1,000 mcg PO DAILY 12/01/17 12/01/17 History [Vitamin B-12] Escitalopram Oxalate [Lexapro] 40 mg PO DAILY 12/01/17 12/01/17 History Etodolac [Lodine] 400 mg PO BID 12/01/17 12/01/17 History Lisinopril Unknown Dose 1 tab PO HS 12/01/17 12/01/17 History Metoprolol Tartrate [Lopressor] 50 mg PO DAILY 12/01/17 12/01/17 History Multivitamins, Thera [Multivitamin 1 tab PO DAILY 12/01/17 12/01/17 History (formulary)] Propranolol HCl [Inderal] 120 mg PO BID 12/01/17 12/01/17 History metFORMIN HCL 1,000 mg PO BID 12/01/17 12/01/17 History Allergies Allergy/AdvReac Type Severity Reaction Status Date / Time Penicillins Allergy Severe Itching Verified 12/01/17 15:30 Physical Exam Vitals: Vital Signs Temp Pulse Pulse Resp BP BP Pulse Ox 12/02/17 03:09 98.4 F 66 18 181/88 92 L 12/02/17 00:00 98.1 F 66 18 134/64 92 L 12/01/17 20:00 98.7 F 61 18 150/80 93 L 12/01/17 18:54 98 12/01/17 18:07 98.6 F 59 L 18 135/63 93 L 12/01/17 17:56 98.2 F 60 18 159/92 96 12/01/17 16:28 59 L 18 144/66 98 12/01/17 15:24 98.7 F 66 18 166/74 92 L Intake and Output 12/01/17 12/02/17 12/02/17 22:59 06:59 14:59 Other: Voiding Method Toilet Toilet # Voids 1 Weight 121.6 kg Blood pressure 151/80 heart rate 59 afebrile maintaining oxygen saturation on room GENERAL: This is a 57-year-old female in no apparent distress at the time of my examination. Morbidly obese. HEENT: Head is atraumatic, normocephalic. Pupils are equal, round. Sclerae anicteric. Conjunctivae are clear. Mucous membranes of the mouth are moist. Neck is supple. There is no jugular venous distention. No carotid bruit is heard. LUNGS: Course rhonchi noted throughout with faint transient expiratory wheeze. No rales. No chest wall tenderness is noted on palpation or with deep breathing. HEART: Regular rate and rhythm with systolic ejection murmur at the base, no rubs or gallops. S1 and S2 heard. ABDOMEN: Soft, nontender. Bowel sounds are heard. No organomegaly noted. EXTREMITIES: Trace bilateral lower extremity peripheral edema and no calf tenderness noted. VASCULAR: Radial and dorsalis pedis pulses palpated, no evidence of clubbing. NEUROLOGIC: Patient is awake, alert and oriented x3. Results 12/02/17 02:45 12/02/17 02:45 Cardiac Enzymes 12/01/17 12/01/17 12/01/17 Range/Units 15:15 15:15 21:31 AST 30 (14-36) U/L CK-MB (CK-2) 1.2 0.9 (0.0-2.4) ng/mL Troponin I <0.012 <0.012 (0.000-0.034) ng/mL 12/02/17 Range/Units 02:45 AST (14-36) U/L CK-MB (CK-2) 0.8 (0.0-2.4) ng/mL Troponin I <0.012 (0.000-0.034) ng/mL Coagulation 12/01/17 Range/Units 15:15 PT 10.1 (9.0-12.0) sec APTT 25.3 (22.0-30.0) sec Lipids 12/02/17 Range/Units 02:45 Triglycerides 158 H (<150) mg/dL Cholesterol 117 (<200) mg/dL HDL Cholesterol 51 (40-60) mg/dL CBC 12/01/17 12/02/17 Range/Units 15:15 02:45 WBC 7.1 8.1 (3.8-10.6) k/uL RBC 4.04 4.04 (3.80-5.40) m/uL Hgb 11.4 11.5 (11.4-16.0) gm/dL Hct 35.7 35.7 (34.0-46.0) % Plt Count 256 231 (150-450) k/uL Comprehensive Metabolic Panel 12/01/17 12/02/17 Range/Units 15:15 02:45 Sodium 142 141 (137-145) mmol/L Potassium 4.3 4.1 (3.5-5.1) mmol/L Chloride 109 H 106 (98-107) mmol/L Carbon Dioxide 28 28 (22-30) mmol/L BUN 10 11 (7-17) mg/dL Creatinine 0.65 0.75 (0.52-1.04) mg/dL Glucose 145 H 121 H (74-99) mg/dL Calcium 8.8 9.1 (8.4-10.2) mg/dL AST 30 (14-36) U/L ALT 31 (9-52) U/L Alkaline Phosphatase 119 (38-126) U/L Total Protein 6.0 L (6.3-8.2) g/dL Albumin 3.3 L (3.5-5.0) g/dL Current Medications Generic Name Dose Route Start Last Admin Trade Name Freq PRN Reason Stop Dose Admin Acetaminophen 325 mg 12/01/17 19:24 Tylenol Tab PO Q6HR PRN Fever and/ or Mild Pain Hydrocodone Bitart/Acetaminophen 1 each 12/01/17 20:18 [place] 5-325 PO Q6HR PRN Pain Albuterol Sulfate 2.5 mg 12/01/17 19:22 Ventolin Nebulized INHALATION RT-QID PRN Shortness Of Breath Alprazolam 0.25 mg 12/01/17 20:18 12/02/17 02:58 Xanax PO 0.25 mg TID PRN Administration Anxiety Aspirin 325 mg 12/02/17 09:00 Aspirin PO DAILY [facility] Atorvastatin Calcium 80 mg 12/01/17 21:00 12/01/17 20:24 Lipitor PO 80 mg HS [facility] Administration Baclofen 10 mg 12/01/17 21:00 12/01/17 20:24 Lioresal PO 10 mg HS [facility] Administration Budesonide/Formoterol Fumarate 2 puff 12/01/17 19:22 Symbicort 160-4.5 Mcg Inhaler INHALATION RT-BID PRN Shortness Of Breath Buspirone HCl 30 mg 12/01/17 21:00 12/01/17 20:24 Buspar PO 30 mg BID [facility] Administration Cholecalciferol 1,000 unit 12/02/17 09:00 Vitamin D3 PO DAILY [facility] Cyanocobalamin 1,000 mcg 12/02/17 09:00 Vitamin B-12 PO DAILY [facility] Escitalopram Oxalate 40 mg 12/02/17 09:00 Lexapro PO DAILY [facility] Hydromorphone HCl 0.5 mg 12/01/17 20:18 12/02/17 02:58 Dilaudid IVP 0.5 mg Q6HR PRN Administration Severe Pain Insulin Aspart 0 unit 12/01/17 21:00 12/01/17 20:25 Novolog SQ 1 unit ACHS [facility] Administration Protocol Levothyroxine Sodium 150 mcg 12/02/17 06:30 12/02/17 06:04 Synthroid PO 150 mcg DAILY@0630 [facility] Administration Metformin HCl 1,000 mg 12/01/17 21:00 12/01/17 20:23 Glucophage PO 1,000 mg AC-BID [facility] Administration Metoprolol Tartrate 100 mg 12/02/17 09:00 Lopressor PO DAILY [facility] Multivitamins 1 each 12/02/17 12:00 Theragran PO DAILY@1200 [facility] Nicotine 1 patch 12/01/17 19:30 12/01/17 20:22 Habitrol 21mg/24hr Patch TRANSDERM 1 patch DAILY [facility] Administration Nitroglycerin 1 inch 12/02/17 00:00 12/02/17 05:15 Nitro-Bid Oint TOPICAL Not Given Q6HR [facility] Nitroglycerin 0.4 mg 12/01/17 17:35 Nitrostat SUBLINGUAL Q5M PRN Chest Pain Non-Formulary Medication 1 tab 12/01/17 21:00 Lisinopril Unknown Dose PO HS [facility] Oxcarbazepine 600 mg 12/01/17 21:00 12/01/17 20:23 Trileptal PO 600 mg BID [facility] Administration Pantoprazole Sodium 40 mg 12/01/17 20:30 12/01/17 20:25 Protonix IVP 40 mg DAILY [facility] Administration Prochlorperazine Maleate 5 mg 12/02/17 03:02 Compazine PO Q8HR PRN Nausea And Vomiting Sodium Chloride 10 ml 12/01/17 21:00 12/01/17 20:24 Saline Flush IV 10 ml BID [facility] Administration Temazepam 15 mg 12/01/17 20:18 Restoril PO HS PRN Insomnia Tramadol HCl 50 mg 12/01/17 22:00 12/01/17 20:23 Ultram PO 50 mg QID [facility] Administration Trazodone HCl 100 mg 12/01/17 21:00 12/01/17 20:23 Desyrel PO 100 mg HS [facility] Administration Intake and Output 12/01/17 12/02/17 12/02/17 22:59 06:59 14:59 Other: Voiding Method Toilet Toilet # Voids 1 Weight 121.6 kg 12/02/17 02:45 12/02/17 02:45 Assessment and Plan Assessment: ASSESSMENT Chest pain, atypical. An acute coronary event has been ruled out with no EKG evidence of ischemia and negative cardiac enzymes. Aortic stenosis, gradient across the valve 6.99 mmHg COPD Hypertension Dyslipidemia Diabetes mellitus Fibromyalgia Chronic nicotine dependence Morbid obesity PLAN An acute coronary event has been ruled out. Obtain 2D echocardiogram and doppler study to assess cardiac structure and function. No further cardiac intervention at this time. Recommend further evaluation from pulmonary services for possibility of pulmonary fibrosis. Thank you kindly for this consultation. Nurse Practitioner note has been reviewed, I agree with a documented findings and plan of care. Patient was seen and examined.
[2017-12-02] MEDS: PANTOPRAZOLE 40 MG/10 ML VIAL IVP SCH (11:13)
[2017-12-02] MEDS: busPIRone HCl 10 MG TAB PO SCH (11:14)
[2017-12-02] MEDS: traMADol 50 MG TAB PO SCH ×2 (11:15→12:51)
[2017-12-02] MEDS: OXcarbazepine 300 MG TAB PO SCH (11:15)
[2017-12-02] MEDS: NICOTINE 21MG/24HR PATCH TRANSDERM SCH (11:16)
[2017-12-02 11:28] VITALS: BP 170/74; PULSE 67; TEMP 98.5
[2017-12-02] MEDS ORDERED: MULTIVITAMINS, THERA 1 EACH TAB PO SCH (12:00)
[2017-12-02 12:07] LABS: Glucose,Whole Blood 185 mg/dL (75-99)
[2017-12-02 12:44] LABS: Hemoglobin A1C 9.3 % (4.0-6.0)
--- NOTE | 2017-12-02 16:29 | P.CNPUL ---
History of Present Illness Consult date: 12/02/17 Requesting physician: Francisco Javier Ruelas Reason for consult: dyspnea, chest pain, abnormal CXR/CT Chief complaint: Chest pain, dyspnea, interstitial pulmonary infiltrates History of present illness: This is a 57-year-old white female, patient of Dr. Suarez, who presented to the emergency department on 12/01/2017 at 1500 or evaluation of sharp substernal chest pain with radiation to the left upper arm, accompanied by increased dyspnea, diaphoresis. Patient has been having on-and-off chest discomfort for last month, and she states it was not brought on by exertion. At times her chest discomfort was dull, at times sharp, always had a pressure component. This time the chest discomfort lasted for over an hour and a half, patient called ambulance, was brought into the emergency department where she was given sublingual nitro, and aspirin with some relief. Patient has past medical history of hypertension, hyperlipidemia, diabetes mellitus type 2, coronary artery disease with remote history of angioplasty, COPD, asthma, previous episodes of pneumonia, rheumatoid arthritis, fibromyalgia, chronic hip and back pain, anxiety, depression. Patient is a current smoker, smokes a pack and a half a day for over 30 years. She rolls her own cigarettes. She states she has exertional dyspnea on the regular basis, has occasional cough with production of yellow phlegm. Patient has 2-3 pillow orthopnea. She has chronic swelling in bilateral lower extremities, and that hasn't changed. She is not on oxygen at baseline. Denied any fever or chills, no hemoptysis, no chest wall tenderness, no palpitations, no lightheadedness, no nausea, no vomiting or diarrhea. She was prescribed Symbicort 160/4.5 g inhaler, and Ventolin by her PCP. Chest x-ray was completed in the emergency department that showed coarse pulmonary interstitial infiltrates, but no pleural effusions. CT angios was completed and showed no evidence of pulmonary embolism , it showed multiple mediastinal and bronchial lymph nodes measuring up to 1.5 cm, extensive coarse interstitial pulmonary infiltrates and this was compared to previous computed tomography scan from 02/04/2016, and appear to be worse than the old exam and felt to be related to prominent fibrosis and sarcoidosis. Patient denies exposure to radiation, asbestos, or fumes. Patient has been disabled during most of her adult life related to history of depression. EKG showed normal sinus rhythm. Labs were reviewed, no leukocytosis, CBC was within normal limits, coagulation profile was normal, d-dimer was slightly elevated at 0.80, renal profile and electrolytes were essentially unremarkable, troponins were negative 3, proBNP was within normal limits at 298. Urinalysis just showed 2+ bilirubin. Last echocardiogram from 01/26/2016 showed mild concentric left ventricular hypertrophy with preserved left ventricular systolic function with an EF between 60-65%, mild aortic stenosis, mild MR and trace TR, and right ventricular systolic pressure is normal at less than 35 mmHg. Cardiology has been consulted. We're seeing this patient in evaluation for appearance of interstitial pulmonary infiltrates/pulmonary fibrosis seen on the CT angios of the chest. Review of Systems All systems: negative Constitutional: Denies chills, Denies fever Eyes: denies blurred vision, denies pain Ears, nose, mouth and throat: Denies headache, Denies sore throat Cardiovascular: Reports decreased exercise tolerance, Reports dyspnea on exertion, Reports edema, Reports high blood pressure, Reports leg edema, Reports orthopnea, Denies chest pain, Denies shortness of breath Respiratory: Reports cough with sputum, Reports dyspnea, Denies cough Gastrointestinal: Denies abdominal pain, Denies diarrhea, Denies nausea, Denies vomiting Genitourinary: Denies dysuria, Denies hematuria Musculoskeletal: Denies myalgias Integumentary: Denies pruritus, Denies rash Neurological: Denies numbness, Denies weakness Psychiatric: Denies anxiety, Denies depression Endocrine: Denies fatigue, Denies weight change Past Medical History Past Medical History: Asthma, Chest Pain / Angina, COPD, Diabetes Mellitus, Eye Disorder, Fibromyalgia, Hyperlipidemia, Hypertension, Osteoarthritis (OA), Pneumonia, Rheumatoid Arthritis (RA) Additional Past Medical History / Comment(s): migraines, diabetic neuropathy in hands and feet, bilateral cataracts, limited ROM billy arm-"shoulder cartlidge problem". swelling of lower legs and feet, History of Any Multi-Drug Resistant Organisms: None Reported Past Surgical History: Heart Catheterization, Joint Replacement, Orthopedic Surgery, Tubal Ligation Additional Past Surgical History / Comment(s): right foot surgery, total left hip arthroplasty, lumbar puncture, R breast surgery for horse bite wound, Past Anesthesia/Blood Transfusion Reactions: Motion Sickness Past Psychological History: ADD/ADHD, Anxiety, Bipolar, Depression Additional Psychological History / Comment(s): Pt resides with her daughter. She uses a cane prn. She drives. Pt states she has depression and has been suicidal in the past but not now or recently. No suicidal thoughts or plans at this time. She states she did attempt suicide years ago by cutting her wrists. 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 smokes 1 PPD Past Drug Use History: None Reported - Past Family History Mother History Unknown: Yes Family Medical History: Unable to Obtain Additional Family Medical History / Comment(s): pt adopted-no hx Father History Unknown: Yes Additional Family Medical History / Comment(s): Pt was adopted. Medications and Allergies Home Medications Medication Instructions Recorded Confirmed Type Levothyroxine Sodium [Synthroid] 150 mcg PO DAILY 02/07/15 12/01/17 History Nitroglycerin Sl Tabs [Nitrostat] 0.4 mg SUBLINGUAL Q5M PRN #25 tab 01/25/16 Rx OXcarbazepine [Trileptal] 600 mg PO BID 01/25/16 12/01/17 History busPIRone HCL [Buspar] 30 mg PO BID 01/25/16 12/01/17 History Albuterol Inhaler [Ventolin Hfa 2 puff INHALATION RT-QID PRN 10/23/16 12/01/17 History Inhaler] Budesonide-Formot 160-4.5 Mcg 2 puff INHALATION RT-BID PRN 10/23/16 12/01/17 History [Symbicort 160-4.5 Mcg Inhaler] traZODone HCL 100 mg PO HS 10/23/16 12/01/17 History Atorvastatin Calcium [Lipitor] 80 mg PO HS 12/01/17 12/01/17 History Baclofen 10 mg PO HS 12/01/17 12/01/17 History Cholecalciferol [Vitamin D3] 1,000 unit PO DAILY 12/01/17 12/01/17 History Cyanocobalamin (Vitamin B-12) 1,000 mcg PO DAILY 12/01/17 12/01/17 History [Vitamin B-12] Escitalopram Oxalate [Lexapro] 40 mg PO DAILY 12/01/17 12/02/17 History Etodolac [Lodine] 400 mg PO BID 12/01/17 12/01/17 History Lisinopril Unknown Dose 1 tab PO HS 12/01/17 12/02/17 History Metoprolol Tartrate [Lopressor] 50 mg PO DAILY 12/01/17 12/01/17 History Multivitamins, Thera [Multivitamin 1 tab PO DAILY 12/01/17 12/01/17 History (formulary)] Propranolol HCl [Inderal] 120 mg PO BID 12/01/17 12/01/17 History metFORMIN HCL 1,000 mg PO BID 12/01/17 12/01/17 History Acetaminophen Tab [Tylenol] 325 mg PO Q6HR PRN tab 12/02/17 Rx Metoprolol Tartrate [Lopressor] 100 mg PO DAILY #30 tab 12/02/17 Rx Allergies Allergy/AdvReac Type Severity Reaction Status Date / Time Penicillins Allergy Severe Itching Verified 12/01/17 15:30 Physical Exam Vitals: Vital Signs Temp Pulse Pulse Resp BP BP Pulse Ox 12/02/17 08:13 64 12/02/17 08:03 64 12/02/17 07:50 98.4 F 59 L 18 151/80 93 L 12/02/17 03:09 98.4 F 66 18 181/88 92 L 12/02/17 00:00 98.1 F 66 18 134/64 92 L 12/01/17 20:00 98.7 F 61 18 150/80 93 L 12/01/17 18:54 98 12/01/17 18:07 98.6 F 59 L 18 135/63 93 L 12/01/17 17:56 98.2 F 60 18 159/92 96 12/01/17 16:28 59 L 18 144/66 98 12/01/17 15:24 98.7 F 66 18 166/74 92 L Intake and Output 12/01/17 12/02/17 12/02/17 22:59 06:59 14:59 Other: Voiding Method Toilet Toilet Toilet # Voids 1 Weight 121.6 kg GENERAL EXAM: Alert, pleasant 57-year-old white female comfortable in no apparent distress. HEAD: Normocephalic/atraumatic. EYES: Normal reaction of pupils, equal size. Conjunctiva pink, sclera white. NOSE: Clear with pink turbinates. THROAT: No erythema or exudates. NECK: No masses, no JVD, no thyroid enlargement, no adenopathy. CHEST: No chest wall deformity. Symmetrical expansion. LUNGS: Coarse, Velcro-like crackles at bilateral lower lobes posteriorly CVS: Regular rate and rhythm, normal S1 and S2, no gallops, no murmurs, no rubs ABDOMEN: Soft, nontender. No hepatosplenomegaly, normal bowel sounds, no guarding or rigidity. EXTREMITIES: No clubbing, no cyanosis, 2+ pulses and upper and lower extremities. Patient has mild swelling, and cellulitis type changes in her right lower ankle, 1+ pitting edema bilaterally. MUSCULOSKELETAL: Muscle strength and tone normal. SPINE: No scoliosis or deformity SKIN: No rashes CENTRAL NERVOUS SYSTEM: Alert and oriented -3. No focal deficits, tone is normal in all 4 extremities. PSYCHIATRIC: Alert and oriented -3. Appropriate affect. Intact judgment and insight. Results - Laboratory Findings CBC and BMP: 12/02/17 02:45 12/02/17 02:45 PT/INR, D-dimer PT 10.1 sec (9.0-12.0) 12/01/17 15:15 INR 1.0 (<1.2) 12/01/17 15:15 D-Dimer 0.80 mg/L FEU (<0.60) H 12/01/17 15:15 Abnormal lab findings: Abnormal Labs 12/01/17 12/01/17 12/01/17 15:15 15:15 20:19 D-Dimer 0.80 H Chloride 109 H Glucose 145 H POC Glucose (mg/dL) 146 H Total Protein 6.0 L Albumin 3.3 L Triglycerides Urine Bilirubin 12/02/17 12/02/17 12/02/17 00:30 02:45 07:11 D-Dimer Chloride Glucose 121 H POC Glucose (mg/dL) 134 H Total Protein Albumin Triglycerides 158 H Urine Bilirubin 2+ H - Diagnostic Findings Chest x-ray: report reviewed, image reviewed CT scan - chest: report reviewed, image reviewed Additional studies: EKG reviewed Assessment and Plan Plan: Assessment: #1. Chest pain associated with dyspnea, diaphoresis, radiation to the left arm , rule out acute coronary syndrome #2. Interstitial lung disease, CT angios showed nonspecific fibrotic changes in the lungs that were present on the previous CT of the chest from 2015 however progressed. Patient does not require any intervention at this time other than follow-up on the outpatient basis and the pulmonary office. #3. Nonspecific mediastinal adenopathy, which seems to have progressed slightly since 2015, will need outpatient follow-up. #4. Mildly elevated d-dimer at 0.80, and CT angios was negative for any evidence of pulmonary embolism #5. History of COPD, not oxygen dependent at baseline #6. Chronic and ongoing nicotine dependence, patient smokes a pack and a half a day for over 30 years #7. Diabetes mellitus type 2 with diabetic neuropathy #8. Hypertension, hyperlipidemia #9. Coronary artery disease, with remote history of angioplasty #10. History of rheumatoid arthritis #11. Fibromyalgia #12. Chronic back and hip pain #13. Anxiety, depression, bipolar disorder Plan: We'll need to follow up with the patient on an outpatient basis as to the nonspecific fibrotic changes in the lungs and mediastinal adenopathy. Patient clearly has evidence of emphysema, and she will need a baseline pulmonary function testing, especially if she needs a lung biopsy for diagnosis. No further intervention is needed at this time on the inpatient basis. Her COPD seems to be stable. She can continue with her home inhalers. Smoking cessation was strongly encouraged. Patient needs further cardiac evaluation and follow-up on an outpatient basis, her presenting symptoms are not explained by her lung disease and seem to be more consistent with a possible cardiac disease. I performed a history & physical examination of the patient and discussed their management with my nurse practitioner, Viviana Boykin. I reviewed the nurse practitioner's note and agree with the documented findings and plan of care. Lung sounds are positive for Velcro-like crackles over bilateral posterior bases. The findings and the impression was discussed with the patient. I attest to the documentation by the nurse practitioner. Time with Patient: Greater than 30
[2017-12-02 17:14] LABS: Glucose,Whole Blood 160 mg/dL (75-99)
--- NOTE | 2017-12-02 20:42 | DS ---
DISCHARGE SUMMARY DATE OF SERVICE: 12/02/2017 FINAL DIAGNOSES: 1. Chest pain, microinfarction ruled out. 2. History of coronary artery disease/stent. 3. History of asthma. 4. Possible pulmonary fibrosis. 5. History of chronic obstructive pulmonary disease. 6. Diabetes mellitus type 2. 7. Mild aortic stenosis history. 8. Continued ongoing nicotine dependence. 9. Fibromyalgia. 10.Hypertension. 11.Obesity with body mass index of 40.2. 12.History of degenerative joint disease. 13.History of rheumatoid arthritis. 14.History of migraine. 15.History attention-deficit/hyperactivity disorder. 16.History of bipolar depression. DISCHARGE DISPOSITION: The patient is being discharged in stable condition with guarded prognosis. Cardiology cleared the patient for discharge. HISTORY OF PRESENT ILLNESS: This 57-year-old woman with a past medical history of multiple medical problems being followed by primary physician in the [facility] was admitted with chest pain. Myocardial infarction ruled out. Cardiology evaluated the patient and recommended outpatient followup. The patient had inconclusive stress test previously. The patient is symptomatic at this time. A chest CT also done showed no evidence of pulmonary embolism. Medications adjusted. On exam, vitals are stable. Cardiovascular S1, S2. Abdomen soft, nontender. Central nervous system: No focal deficits. Patient is symptomatic. DISCHARGE ADVICE AND MEDICATIONS: 1. Discharge diet is cardiac diet. 2. Activity limited until followup. 3. Follow up with primary physician in 2 to 3 days. 4. Follow up with Dr. Martin. 5. Pulmonary follow up. 6. Follow with the road machine operator as advised. MEDICATIONS ARE: 1. Ventolin HFA p.r.n. 2. Lipitor 80 mg q.h.s. 3. Baclofen 10 mg q.h.s. 4. Symbicort 160/4.5 two puffs b.i.d. 5. BuSpar 30 mg p.o. b.i.d. 6. Vitamin D3 1000 daily. 7. Vitamin B12 1000 mcg p.o. daily. 8. Lexapro 40 mg p.o. 9. Lodine 400 mg p.o. b.i.d. 10.Synthroid 150 mcg p.o. daily. 11.Lisinopril 1 tablet q.h.s. 12.Metformin 1000 mg p.o. b.i.d. 13.Lopressor 50 mg p.o. daily. 14.Multivitamins 1 p.o. daily. 15.Trileptal 6 mg p.o. b.i.d. 16.inderal p.o. b.i.d. 17.Trazodone 100 mg q.h.s. 18.Tylenol p.r.n. 19.Lopressor 100 mg p.o. daily. 20.Nitrostat 0.4 mg p.r.n. ELISA / MARCYN: [id number] / MTDD
--- NOTE | 2017-12-09 10:03 | ECHOF ---
Referral Reason:cp, sob MEASUREMENTS -------- HEIGHT: 170.2 cm WEIGHT: 127.0 kg BP: IVSd: 1.4 cm (0.6 - 1.1) LVIDd: 5.1 cm (3.9 - 5.3) LVPWd: 1.6 cm (0.6 - 1.1) IVSs: 1.8 cm LVIDs: 3.2 cm LVPWs: 1.6 cm LA Diam: 3.2 cm (2.7 - 3.8) LAESV Index (A-L): 30.09 ml/m Ao Diam: 3.3 cm (2.0 - 3.7) AV Cusp: 2.3 cm (1.5 - 2.6) LA Diam: 3.7 cm (2.7 - 3.8) MV EXCURSION: 21.518 mm (> 18.000) MV EF SLOPE: 117 mm/s (70 - 150) EPSS: 0.5 cm MV E Dino: 0.76 m/s MV DecT: 204 ms MV A Dino: 1.04 m/s MV E/A Ratio: 0.73 RAP: 5.00 mmHg RVSP: 39.23 mmHg FINDINGS -------- Sinus rhythm. Morbid Obesity The left ventricular size is normal. There is moderate concentric left ventricular hypertrophy. O verall left ventricular systolic function is normal with, an EF between 55 - 60 %. The right ventricle is normal in size. The left atrial size is normal. The right atrial size is normal. 5.0mg OF Lumason UTLIZED: 2 OR MORE WALL SEGMENTS NOT VISUALIZED. The aortic valve is trileaflet, and appears structurally normal. No aortic stenosis or regurgitation. Mild mitral regurgitation is present. Mild tricuspid regurgitation present. There is mild pulmonary hypertension. The right ventricular systolic pressure, as measured by Doppler, is 39.23mmHg. Trace/mild (physiologic) pulmonic regurgitation. The aortic root size is normal. There is no pericardial effusion. CONCLUSIONS -------- 1. Morbid Obesity 2. The left ventricular size is normal. 3. There is moderate concentric left ventricular hypertrophy. 4. Overall left ventricular systolic function is normal with, an EF between 55 - 60 %. 5. The right ventricle is normal in size. 6. The left atrial size is normal. 7. The right atrial size is normal. 8. 5.0mg OF Lumason UTLIZED: 2 OR MORE WALL SEGMENTS NOT VISUALIZED. 9. The aortic valve is trileaflet, and appears structurally normal. No aortic stenosis or regurgitati on. 10. Mild mitral regurgitation is present. 11. Mild tricuspid regurgitation present. 12. There is mild pulmonary hypertension. 13. The right ventricular systolic pressure, as measured by Doppler, is 39.23mmHg. 14. Trace/mild (physiologic) pulmonic regurgitation. 15. The aortic root size is normal. 16. There is no pericardial effusion. STEAM BONE PRESS TENDER: Erin Williamson RDCS
== END 2017-12-02 18:52 | disposition home or self-care (01) ==
LOC: EC 15:17 → 3OBS 17:35
PROVIDERS: ADMIT Internal Medicine; ATTEND Internal Medicine
DX: R07.89 Other chest pain (principal); R61 Generalized hyperhidrosis; I25.10 Atherosclerotic heart disease of native coronary artery without angina pectoris; J84.9 Interstitial pulmonary disease, unspecified; I35.0 Nonrheumatic aortic (valve) stenosis; M79.7 Fibromyalgia; J44.9 Chronic obstructive pulmonary disease, unspecified; E78.5 Hyperlipidemia, unspecified; E11.40 Type 2 diabetes mellitus with diabetic neuropathy, unspecified; M19.90 Unspecified osteoarthritis, unspecified site; I10 Essential (primary) hypertension; M06.9 Rheumatoid arthritis, unspecified; G43.909 Migraine, unspecified, not intractable, without status migrainosus; F31.9 Bipolar disorder, unspecified; F90.9 Attention-deficit hyperactivity disorder, unspecified type; R06.01 Orthopnea; R59.0 Localized enlarged lymph nodes; R79.89 Other specified abnormal findings of blood chemistry; G89.29 Other chronic pain; M25.559 Pain in unspecified hip; M54.9 Dorsalgia, unspecified; F17.210 Nicotine dependence, cigarettes, uncomplicated; H26.9 Unspecified cataract; E66.01 Morbid (severe) obesity due to excess calories; Z68.41 Body mass index [BMI] 40.0-44.9, adult; Z79.51 Long term (current) use of inhaled steroids; Z79.890 Hormone replacement therapy; Z79.84 Long term (current) use of oral hypoglycemic drugs; Z79.899 Other long term (current) drug therapy; Z88.0 Allergy status to penicillin; F41.9 Anxiety disorder, unspecified; Z98.51 Tubal ligation status; Z95.5 Presence of coronary angioplasty implant and graft; Z96.642 Presence of left artificial hip joint; Z87.01 Personal history of pneumonia (recurrent); Z91.5 Personal history of self-harm
CPT/HCPCS: 99285 ×2; 96374; 96375; 96376; 36415; 94640; 93005; 85379; 83880; 80061; 80053; 80048; 82550 ×2; 82553 ×2; 83735; 84484 ×2; 85025 ×2; 85610; 85730; 81003; 83036; 71046; 71275; G0378 ×2; C8929; S4990 ×2; J1170; C9113 ×2; Q9950; Q9967; 93306

== ENCOUNTER 2019-01-13 08:53 | Inpatient (IN) | payer OTHER ==
[2019-01-07 13:01] VITALS: BMI 38.3
--- NOTE | 2019-01-12 09:34 | HP ---
HISTORY AND PHYSICAL CHIEF COMPLAINT: Right shoulder pain. HISTORY OF PRESENT ILLNESS: Patient is a 58-year-old right-hand dominant female who presents with progressive right shoulder pain worsening over the past several years. She has difficult time with activity, particularly overhead and at night. She has tried medications without much relief. PAST MEDICAL HISTORY: Significant for asthma/COPD, hypertension, CHF, type 2 diabetes, depression, hypothyroidism, and arthritis. PAST SURGICAL HISTORY: Significant for previous left total hip arthroplasty, right foot surgery, tubal ligation, and breast biopsy. CURRENT MEDICATIONS: 1. Etodolac. 2. Glimepiride. 3. Isosorbide mononitrate. 4. Januvia. 5. Lexapro. 6. Lipitor. 7. Lisinopril. 8. Lopressor. 9. Neurontin. 10.Strattera. 11.Synthroid. 12.Trazodone. 13.Trileptal. 14.Valium. She notes allergies to PENICILLIN. FAMILY HISTORY: Negative. SOCIAL HISTORY: Significant for 1 pack per day tobacco use. 16 POINT REVIEW OF SYSTEMS: Otherwise reviewed and is noncontributory. PHYSICAL EXAMINATION: On examination, the patient is approximately 5 foot 7, 246 pounds of endomorphic habitus. HEENT: Exam is nonfocal. NECK: Supple. On the right shoulder, she is tender about the anterior glenohumeral joint and subacromial space. Active range of motion, forward elevation 90 degrees, external rotation with arm at side 40 degrees internal rotation to L5. Passively, I am able to forward elevate her to 90 degrees. Motor strength is 5-/5 for abduction and external rotation. Impingement test, Neer tests are positive. Her distal neurovascular appears intact in the right upper extremity. X-rays of the right shoulder obtained in the office show severe glenohumeral joint osteoarthrosis. IMPRESSION: 1. Right severe glenohumeral joint osteoarthrosis. 2. Obesity. 3. [id number]-bqwyzvaek diabetes. 4. History of heart disease. RECOMMENDATIONS: I talked to the patient at length regarding her condition along with treatment options. At this point she notes she is quite symptomatic because of pain related to her osteoarthrosis despite conservative measures. After a thorough discussion, she opts to proceed with surgery. We will plan to proceed with right total shoulder arthroplasty. We will institute DVT prophylaxis postoperatively. The patient underwent preoperative medical clearance by Gage Suarez, Nurse Practitioner along with Cardiology, by Dr. Blackwood. MMALIRIOL / MARCYN: [id number] /
[~2019-01-13 08:53] MED LIST: ACETAMINOPHEN TAB 500 MG TAB PO ONE; DEXAMETHASONE SOD PHOSPHATE 10 MG/ML 1 ML VIAL IV ONE; HYDROmorphone 0.5 MG/0.5 ML SYRINGE IVP PRN; LIDOCAINE 1% 20 ML VIAL (10MG/ML) FOR IV START INTRADERMA PRN; MELOXICAM 7.5 MG TAB PO ONE; MIDAZOLAM 2 MG/2 ML VIAL IV PRN; ONDANSETRON 4 MG/2 ML VIAL IVP ONE; SCOPOLAMINE 1.5MG/72HR PATCH TRANSDERM ONE; TRANEXAMIC ACID 1,000 MG in SODIUM CHLORIDE 0.9% 100 ML IVPB ONE
[2019-01-13 10:00] LABS: Glucose,Whole Blood 157 mg/dL (75-99)
[2019-01-13] MEDS: LACTATED RINGERS 1,000 ML IV SCH (10:00)
[2019-01-13] MEDS ORDERED: ROPIVACAINE 5 MG/ML 30 ML VIAL ONE (11:06)
[2019-01-13] MEDS ORDERED: SUCCINYLCHOLINE CHLORIDE 100 MG/5 ML SYR IV ONE (11:06)
[2019-01-13] MEDS ORDERED: fentaNYL (PF) 50 MCG/ML 2 ML AMP ONE (11:06)
[2019-01-13] MEDS ORDERED: GLYCOPYRROLATE 0.2 MG/ML 2 ML VIAL ONE (11:06)
[2019-01-13] MEDS ORDERED: LIDOCAINE 1%-EPI 1:100,000 20 ML VIAL ONE (11:06)
[2019-01-13] MEDS ORDERED: LIDOCAINE 1% INJ 10MG/ML (20 ML MDV) ONE (11:06)
[2019-01-13] MEDS ORDERED: ROCURONIUM BROMIDE 10 MG/ML 10 ML VIAL IV ONE (11:06)
[2019-01-13] MEDS ORDERED: SODIUM CHLORIDE 0.9% 100 ML BAG ONE (11:06)
[2019-01-13] MEDS ORDERED: ePHEDrine SULFATE/0.9% NACL/PF 50 MG/5 ML SYRINGE IV ONE (11:06)
[2019-01-13] MEDS ORDERED: TRANEXAMIC ACID 1,000 MG/10 ML VIAL ONE (11:06)
[2019-01-13] MEDS ORDERED: PROPOFOL 10 MG/ML 20 ML VIAL IV ONE (11:06)
[2019-01-13] MEDS ORDERED: PHENYLEPHRINE-0.9% NACL SYG 1 MG/10 ML SYRINGE ONE (11:06)
[2019-01-13] MEDS ORDERED: ceFAZolin 3,000 MG in SODIUM CHLORIDE 0.9% IRRIGATIO 3,000 ML IRRIGATION ONE (11:42)
[2019-01-13] MEDS ORDERED: HYDROmorphone 0.5 MG/0.5 ML SYRINGE IVP PRN ×2 (13:04)
[2019-01-13] MEDS ORDERED: ONDANSETRON 4 MG/2 ML VIAL IVP PRN (13:04)
[2019-01-13] MEDS ORDERED: HYDROcodone/APAP 5-325MG 1 EACH TAB PO PRN (13:04)
--- NOTE | 2019-01-13 13:31 | P.OP ---
Date of Procedure: 01/13/19 Preoperative Diagnosis: Severe right glenohumeral joint osteoarthrosis Postoperative Diagnosis: Same Procedure(s) Performed: Right total shoulder arthroplasty Implants: [employer] size 12 press-fit humeral stem, 48 x 18 mm eccentric humeral head, 44 mm cemented pegged glenoid. Anesthesia: [facility] Surgeon: Gregorio Zapata Vacation Sales Advisor #1: Ishan Coelho Estimated Blood Loss (ml): 100 Pathology: other (Humeral head) Condition: stable Disposition: PACU Indications for Procedure: The patient's a 58-year-old female who presents with progressive right shoulder pain secondary to osteoarthrosis despite conservative measures. A discussion of the risks and benefits of operative intervention versus continued conservative measures was made with patient. She opted to proceed with surgery. Operative risks to include infection, neurovascular injury, development of blood clots, possible fracture, possible component loosening and need for subsequent procedures was discussed. Informed consent was obtained. Operative Findings: As below Description of Procedure: The patient was brought to the operating room, and after induction of general anesthesia was placed in the beachchair position. The bony prominences were appropriately padded. The right upper extremity was prepped and draped in normal fashion. A deltopectoral incision was then made lateral to the coracoid process extending approximately 12 cm. The skin was incised sharply. Subcutaneous tissues were divided bluntly. Electrocautery was used for hemostasis. The deltopectoral interval was identified and the cephalic vein gently retracted laterally with the deltoid. Subdeltoid adhesions were bluntly dissected. A self-retaining retractor was placed. The clavipectoral fascia was opened and the conjoined tendon gently retracted medially. The upper one third of the pectoralis major was released to help facilitate exposure. The biceps was identified and the sheath was opened. The rotator interval was opened. The biceps was tenotomized and allowed to retract distally. The lesser tuberosity osteotomy was performed with a small sagittal saw. This completed with an osteotome. The humeral head was then exposed releasing the capsule off the humeral neck. The shoulder was gently dislocated. A starting hole was made in the head in line with the humeral shaft. The shaft was reamed by hand up to 12 mm. There is good distal chatter. The cutting guide was placed planning on a cut flush with the rotator cuff insertion and 30 of retroversion. The cutting block was pinned in place. The humeral head cut was then made. This measured most appropriately at 48 x 18 mm. Residual inferior osteophytes were carefully removed flush with the [place] cortical bone. A posterior glenoid retractor was placed. The glenoid was then exposed releasing the labrum from the 12:00 to 6 o'clock position. Residual labral tissue was removed. The glenoid sized most appropriate 44 mm. A guidewire was then inserted planning on the appropriate version. The glenoid was reamed down to a bleeding bony surface. The central peg hole was drilled. The alignment guide was placed in the peripheral peg holes drilled. The trial size 44 mm glenoid was placed and was fully seated. There was good anterior to posterior and inferior to superior fit. The trial component was removed. Pulsatile lavage was utilized. The bony surface was dried. The peripheral peg holes were then pressurized with cement utilizing a syringe. Excess cement was removed. A central peg glenoid was then placed and was fully seated. This was gently impacted. This was held in place until the cement had sufficiently hardened. Attention was then paid again towards preparing the proximal humerus. The appropriate broach was placed in 30 of retroversion and was fully seated. An eccentric 48 x 18 mm humeral head was placed. The shoulder was gently reduced. It was taken through a range of motion. It was felt to be stable in flexion and extension with internal and external rotation. I felt there was adequate latter day of soft tissue tension. The shoulder was gently dislocated. The trial components were then removed. A #2 Ethibond was placed laterally for reattachment of the lesser tuberosity. The humeral stem was inserted in 30 of retroversion and was fully seated. There was good rotational stability. The eccentric 48 x 18 mm humeral head was gently impacted. The shoulder was then gently reduced and taken through range of motion and was felt to be stable. Pulsatile lavage was utiliz ed. Lesser tuberosity was reattached utilizing #2 Ethibond suture. The rotator interval was closed with #2 Ethibond suture. She had minimal drainage at this point therefore a deep drain was not placed. The deltopectoral interval was closed with interrupted 2-0 Vicryl sutures. The subcu tissues were reapproximated with interrupted 2-0 Vicryl sutures. The skin was reapproximated with 3-0 subcuticular Prolene suture. Steri-Strips were applied. A sterile dressing was applied in addition to a sling. The patient was then awoken from general anesthesia and transferred to recovery room in good condition. Blood loss was estimated at 100 mL. No complications were incurred. Sponge and needle counts were correct at the end the case. Jay Jay ROSAS assisted during the major components the case to include exposure, component implantation, and closure.
[2019-01-13 13:45] LABS: Glucose,Whole Blood 183 mg/dL (75-99)
[2019-01-13] MEDS ORDERED: ROPIVACAINE 0.2%-NS ON-Q PUMP 1,090 MG, EMPTY PAIN BALL 1 EACH MISCELLANE PRN (13:53)
--- NOTE | 2019-01-13 13:57 | XR ---
EXAMINATION TYPE: XR shoulder complete RT DATE OF EXAM: 01/13/2019 COMPARISON: NONE HISTORY: Postop TECHNIQUE: One view submitted FINDINGS: Postsurgical changes in near-anatomic alignment. Soft tissue edema and emphysema noted. IMPRESSION: Postop
--- NOTE | 2019-01-13 15:22 | P.ANPRN ---
Procedure Note - Anesthesia - Nerve Block Performed Right Interscalene Infusion Time Out Performed: Yes Date of Procedure: 01/13/19 Procedure Start Time: 10:24 Procedure Stop Time: 10:51 Location of Patient Procedure: PreOp Indication: Acute Post-Operative Pain, Requested by Surgeon Sedation Type: Sedate with meaningful contact maintained Preparation: Sterile Prep, Sterile Dressing Position: Supine Catheter: Indwelling Needle Types: Pajunk Needle Gauge: 21 Ultrasound used to visualize needle placement: Yes Ultrasound used to observe medication spread: Yes Blood Aspirated: No Pain Paresthesia on Injection Noted: No Resistance on Injection: Normal Image Stored and Saved: Yes Events: Uneventful and Well Tolerated (ropi .5% 20cc)
[2019-01-13] MEDS: HYDROcodone/APAP 5-325MG 1 EACH TAB PO PRN (15:33)
[2019-01-13] MEDS ORDERED: ALBUTEROL NEBULIZED 2.5 MG/3 ML INHALATION PRN (18:21)
[2019-01-13] MEDS ORDERED: NITROGLYCERIN SL TABS 0.4 MG TAB SUBLINGUAL PRN (18:21)
[2019-01-13] MEDS ORDERED: SYMBICORT 160-4.5 MCG INHALER INHALATION PRN (18:21)
[2019-01-13 18:24] LABS: Glucose,Whole Blood 206 mg/dL (75-99)
[2019-01-13 20:39] LABS: Glucose,Whole Blood 172 mg/dL (75-99)
[2019-01-13] MEDS: cloNIDine HCL 0.1 MG TAB PO SCH (20:47)
[2019-01-13] MEDS ORDERED: traZODone HCL 100 MG TAB PO SCH (21:00)
[2019-01-13] MEDS ORDERED: ATORVASTATIN 80 MG TAB PO SCH (21:00)
[2019-01-13] MEDS: NICOTINE 21MG/24HR PATCH TRANSDERM SCH (21:13)
[2019-01-13] MEDS: busPIRone HCl 10 MG TAB PO SCH (21:13)
[2019-01-13] MEDS: METOPROLOL TARTRATE 50 MG TAB PO SCH (21:13)
[2019-01-13] MEDS: GABAPENTIN 300 MG CAP PO SCH (21:13)
[2019-01-13] MEDS: INSULIN ASPART (NovoLOG) 100 UNIT/ML VIAL SQ SCH (21:13)
[2019-01-13] MEDS: ETODOLAC 400 MG TAB PO SCH (21:19)
[2019-01-13] MEDS: OXcarbazepine 300 MG TAB PO SCH (21:20)
[2019-01-14] MEDS: LACTATED RINGERS 1,000 ML IV SCH (00:51)
[2019-01-14] MEDS: HYDROcodone/APAP 5-325MG 1 EACH TAB PO PRN ×2 (00:55→07:40)
[2019-01-14] MEDS ORDERED: LEVOTHYROXINE 75 MCG TAB PO SCH (06:30)
--- NOTE | 2019-01-14 07:03 | P.PN ---
Progress Note - Text Progress Note Date: 01/14/19 Postoperative day # 1 status post total shoulder arthroplasty, under spinal anesthesia, and interscalene catheter placed for postoperative analgesia, currently at ropivacaine 0.2% 6 mL per hour and continuous infusion, she is complaining of pain at the surgical site, patient using oral pain medication for breakthrough pain. Assessment and plan= Acute postoperative pain, interscalene catheter catheter for pain control, we'll increase the infusion to 8 mL per hour and continue oral Duck when necessary
[2019-01-14 07:27] LABS: Glucose,Whole Blood 135 mg/dL (75-99)
[2019-01-14 07:35] VITALS: TEMP 97.8
[2019-01-14 07:36] LABS: Basophils % (A) 0 %; Eosinophils # (A) 0.1 k/uL (0-0.7); Eosinophils % (A) 1 %; HCT 36.7 % (34.0-46.0); HGB 12.1 gm/dL (11.4-16.0); Lymphocytes # (A) 2.2 k/uL (1.0-4.8); Lymphocytes % (A) 22 %; MCH 29.1 pg (25.0-35.0); MCV 88.4 fL (80.0-100.0); Mean Platelet Volume 6.1; Monocytes # (A) 0.5 k/uL (0-1.0); Monocytes % (A) 5 %; Neutrophils # (A) 6.9 k/uL (1.3-7.7); Neutrophils % (A) 69 %; Platelet Count 257 k/uL (150-450); RBC 4.15 m/uL (3.80-5.40); RDW 13.6 % (11.5-15.5); WBC 10.1 k/uL (3.8-10.6)
[2019-01-14] MEDS: INSULIN ASPART (NovoLOG) 100 UNIT/ML VIAL SQ SCH (07:40)
[2019-01-14] MEDS: GABAPENTIN 300 MG CAP PO SCH (07:42)
[2019-01-14] MEDS: METOPROLOL TARTRATE 50 MG TAB PO SCH (07:44)
[2019-01-14] MEDS: busPIRone HCl 10 MG TAB PO SCH (07:44)
[2019-01-14] MEDS: ETODOLAC 400 MG TAB PO SCH (07:46)
[2019-01-14] MEDS: cloNIDine HCL 0.1 MG TAB PO SCH (07:46)
[2019-01-14] MEDS: NICOTINE 21MG/24HR PATCH TRANSDERM SCH (07:47)
[2019-01-14] MEDS: OXcarbazepine 300 MG TAB PO SCH (07:47)
[2019-01-14] MEDS ORDERED: IPRATROPIUM 0.5 MG/2.5 ML NEBU INHALATION SCH (08:00)
[2019-01-14] MEDS ORDERED: LINAGLIPTIN 5 MG TABLET PO SCH (09:00)
[2019-01-14] MEDS ORDERED: ASPIRIN 325 MG TAB PO SCH (09:00)
[2019-01-14] MEDS ORDERED: Atomoxetine Hcl [Strattera] 80 MG PO SCH (09:00)
[2019-01-14] MEDS ORDERED: ASPIRIN 81 MG PO SCH (09:00)
[2019-01-14] MEDS ORDERED: CHOLECALCIFEROL 1,000 UNIT TAB PO SCH (09:00)
[2019-01-14] MEDS ORDERED: ISOSORBIDE MONONITRATE ER 60 MG TAB.ER.24H PO SCH (09:00)
[2019-01-14] MEDS ORDERED: LISINOPRIL 2.5 MG TAB PO SCH (09:00)
--- NOTE | 2019-01-14 09:59 | P.PN ---
Subjective Progress Note Date: 01/14/19 Principal diagnosis: Status post right total shoulder arthroplasty Patient evaluated at bedside, she is resting comfortably. She's utilizing the arm sling. She denies any chest pain or shortness of breath. Objective - Vital Signs Vital signs: Vital Signs Temp 97.8 F 01/14/19 07:00 Pulse 60 01/14/19 07:00 Resp 16 01/14/19 07:00 BP 125/76 01/14/19 07:00 Pulse Ox 95 01/14/19 07:00 Intake & Output 01/13/19 01/14/19 01/14/19 18:59 06:59 18:59 Intake Total 901 50 Output Total 600 Balance 301 50 Weight 114.9 kg Intake: IV 901 Intake, IV Titration 50 Amount Lactated Ringers 1,000 ml 50 @ 20 mls/hr IV .Q24H CASSIDY Rx#:[id number] Output: Urine 500 Estimated Blood Loss 100 - Exam Right upper extremity: Postoperative bandages removed, incision is clean, dry and intact. Minimal soft tissue swelling and ecchymosis. Neurovascular exam is intact. - Labs CBC & Chem 7: 01/14/19 06:34 Labs: Abnormal Lab Results - Last 24 Hours (Table) 01/13/19 01/13/19 01/13/19 Range/Units 09:58 13:43 18:22 POC Glucose (mg/dL) 157 H 183 H 206 H (75-99) mg/dL 01/13/19 01/14/19 Range/Units 20:38 07:25 POC Glucose (mg/dL) 172 H 135 H (75-99) mg/dL Assessment and Plan Plan: Assessment: Postoperative day 1 status post right total shoulder arthroplasty Plan: Pain control, plan for discharge on [place] 5 mg/325 mg GI and DVT prophylaxis, aspirin 325 mg daily Wound care instructions discussed Activity modifications discussed Medical recommendations Plan discharge home today Time with Patient: Less than 30
--- NOTE | 2019-01-14 10:01 | P.DS ---
Providers Date of admission: 01/13/19 08:53 Expected date of discharge: 01/14/19 Attending physician: Gregorio Zapata Primary care physician: JOSE ANTONIO Baires Hospital Course: Date of admission: 01/13/2019 Date of discharge: 01/14/2019 Admission diagnosis: Status post right total shoulder arthroplasty Discharge diagnosis: Same Attending physician: Dr. Zapata Surgical procedures: Right total shoulder arthroplasty Brief history: Patient is a 58-year-old female with a history of progressive primary right shoulder osteoarthritis. At this point patient has failed conservative treatment measures and has opted to proceed with a elective right total shoulder arthroplasty. Hospital course: Details of patient's surgery can be found in operative report. Patient tolerated the procedure well and was subsequently transported to orthop edic floor. Patient's orthopeidc and medical care was provided daily. Patient had daily laboratory tests performed for evaluation of overall blood counts. Patient had daily physical therapy to include strengthening range of motion as well as education with walker ambulation. Patient was treated with aspirin for their postoperative DVT prophylaxis during their inpatient stay. Patient was noted to have a relatively uneventful postoperative course. Patient reported satisfactory pain control with oral pain medications by postoperative day 0. Patient showed satisfactory progress with physical therapy. Patient moved steadily through the program and had no difficulty meeting the goals by postoperative day 1. Given patient's otherwise satisfactory course and having met physical therapy goals, plan is to discharge patient home on postoperative day 1. Discharge condition/disposition: Patient will be discharged home in stable condition. Discharge medications: Instructions are given on resumption of patient's normal daily medications per primary care recommendation, in addition patient will be prescribed [place] 5 mg/325 mg, Aspirin 325 mg. Discharge instructions: 1. Wound care and infection precautions, keep incision dry and covered while showering, no lotions, creams, moisturizers. No soaking, tubs, pools, hottubs. Do not scrub over the incision. 2. Utilize arm sling 3. Ice and elevate when necessary. Do not exceed 20 minutes per hour with ice pack. 4. Pain meds and anticoagulants per prescription. 5. Pain medication has potential to cause constipation. Increase oral fluid and fiber intake. Contact primary care provider if you have not had a bowel movement within 48 hours after discharge 6. No anti-inflammatory medication until discussed at first post operative vis it, this including Motrin, Aleve, Mobic, Diclofenac 7. Follow up in office at 2 weeks postop with Jay Jay Coelho PA-C 8. Follow up with your primary care doctor 7-10 days after discharge. 9. Contact [facility] with any questions, . Procedures: Right total shoulder arthroplasty Patient Condition at Discharge: Good Plan - Discharge Summary Discharge Rx Participant: No New Discharge Prescriptions: New Aspirin 325 mg PO DAILY #20 tab Hydrocodone/Acetaminophen [[place] 5-325] 1 - 2 each PO Q6HR PRN #40 tab PRN Reason: Pain No Action Levothyroxine Sodium [Synthroid] 150 mcg PO DAILY OXcarbazepine [Trileptal] 600 mg PO BID busPIRone HCL [Buspar] 30 mg PO TID Nitroglycerin Sl Tabs [Nitrostat] 0.4 mg SUBLINGUAL Q5M PRN #25 tab PRN Reason: Chest Pain Albuterol Inhaler [Ventolin Hfa Inhaler] 2 puff INHALATION RT-QID PRN PRN Reason: Shortness Of Breath Budesonide-Formot 160-4.5 Mcg [Symbicort 160-4.5 Mcg Inhaler] 2 puff INHALATION RT-BID PRN PRN Reason: Shortness Of Breath traZODone HCL 100 mg PO HS Atorvastatin Calcium [Lipitor] 80 mg PO HS Metoprolol Tartrate [Lopressor] 50 mg PO BID Multivitamins, Thera [Multivitamin (formulary)] 1 tab PO DAILY Cholecalciferol [Vitamin D3 (25 Mcg = 1000 Iu)] 5,000 unit PO DAILY Etodolac [Lodine] 500 mg PO BID Acetaminophen Tab [Tylenol] 325 mg PO Q6HR PRN tab PRN Reason: Fever and/ or Mild Pain Lisinopril [Zestril] 2.5 mg PO DAILY sitaGLIPtin PHOSPHATE [Januvia] 100 mg PO DAILY Isosorbide Mononitrate ER [Imdur] 60 mg PO DAILY Atomoxetine HCl [Strattera] 80 mg PO QAM cloNIDine HCL [Catapres] 0.1 mg PO BID Gabapentin [Neurontin] 600 mg PO TID Umeclidinium Ronceverte [Incruse Ellipta] 1 puff INHALATION BID Discharge Medication List Levothyroxine Sodium [Synthroid] 150 mcg PO DAILY 02/07/15 [History] Nitroglycerin Sl Tabs [Nitrostat] 0.4 mg SUBLINGUAL Q5M PRN #25 tab 01/25/16 [Rx] OXcarbazepine [Trileptal] 600 mg PO BID 01/25/16 [History] busPIRone HCL [Buspar] 30 mg PO TID 01/25/16 [History] Albuterol Inhaler [Ventolin Hfa Inhaler] 2 puff INHALATION RT-QID PRN 10/23/16 [History] Budesonide-Formot 160-4.5 Mcg [Symbicort 160-4.5 Mcg Inhaler] 2 puff INHALATION RT-BID PRN 10/23/16 [History] traZODone HCL 100 mg PO HS 10/23/16 [History] Atorvastatin Calcium [Lipitor] 80 mg PO HS 12/01/17 [History] Cholecalciferol [Vitamin D3 (25 Mcg = 1000 Iu)] 5,000 unit PO DAILY 12/01/17 [History] Etodolac [Lodine] 500 mg PO BID 12/01/17 [History] Metoprolol Tartrate [Lopressor] 50 mg PO BID 12/01/17 [History] Multivitamins, Thera [Multivitamin (formulary)] 1 tab PO DAILY 12/01/17 [History] Acetaminophen Tab [Tylenol] 325 mg PO Q6HR PRN tab 12/02/17 [Rx] Atomoxetine HCl [Strattera] 80 mg PO QAM 01/07/19 [History] Gabapentin [Neurontin] 600 mg PO TID 01/07/19 [History] Isosorbide Mononitrate ER [Imdur] 60 mg PO DAILY 01/07/19 [History] Lisinopril [Zestril] 2.5 mg PO DAILY 01/07/19 [History] Umeclidinium Ronceverte [Incruse Ellipta] 1 puff INHALATION BID 01/07/19 [History] cloNIDine HCL [Catapres] 0.1 mg PO BID 01/07/19 [History] sitaGLIPtin PHOSPHATE [Januvia] 100 mg PO DAILY 01/07/19 [History] Aspirin 325 mg PO DAILY #20 tab 01/14/19 [Rx] Hydrocodone/Acetaminophen [[place] 5-325] 1 - 2 each PO Q6HR PRN #40 tab 01/14/19 [Rx] Follow up Appointment(s)/Referral(s): Ishan Coelho PAC [PHYSICIAN DENTAL MOLD MAKER] - 01/28/19 3:30 pm Bianca Suarez NPC [Primary Care Provider] - 1 Week Activity/Diet/Wound Care/Special Instructions: Orthopedic discharge instructions: 1. Resume home medications after discharge 2. Pain medication and anticoagulation as instructed 3. Daily dressing changes 4. Utilize arm sling, ice often 5. Plan for [facility]up at [facility] 2 weeks Discharge Disposition: HOME WITH HOME HEALTH SERVICES
[2019-01-14 13:17] VITALS: BP 98/58; PULSE 61; RESP 18
[2019-01-14 14:00] LABS: Hemoglobin A1C 7.2 % (4.0-6.0)
--- NOTE | 2019-01-14 20:22 | CONS ---
CONSULTATION CHIEF COMPLAINT: Osteoarthritis right shoulder. HISTORY OF PRESENT ILLNESS: This 58-year-old white female was brought in for pain in the right shoulder replacement. The history is the she has been in fairly good health otherwise. She does have a history of hypertension and diabetes. REVIEW OF SYSTEMS: She has had no headaches, TIAs, CVAs, change in the vision or the hearing, she has had no cough, hemoptysis, shortness of breath, chest pain, palpitations, abdominal pain, nausea, vomiting, hematemesis, melena, hematochezia, jaundice, hematuria, renal failure, dysuria, etc. Past medical history, family history, personal and social histories are unremarkable except that she is ALLERGIC to PENICILLIN. The medication can be found in the medication section of MAR section of her chart. Surgically she has had tubal ligation and left hip replacement in the past and a procedure on 1 of her feet. She smokes a pack of cigarettes a day. PHYSICAL EXAMINATION: Blood pressure is 138/86 with a pulse of 81, respirations of 27, and she is afebrile. In general, she appeared to be well developed, well nourished, in no acute distress. Skin color is normal. Skin is warm, dry. Lymph nodes not enlarged. Head, ears, eyes, nose, mouth, and throat were normal. Neck veins are not distended. Thyroid is not enlarged. Chest is clear and cardiac exam is normal. Abdomen is soft, nontender. Extremities are normal and neurologically she is intact. IMPRESSION: She is admitted to the hospital with diagnoses: 1. Osteoarthritis right shoulder. 2. Essential hypertension. 3. Type 2 diabetes mellitus. 4. Nicotine abuse. RECOMMENDATIONS: None. She is doing well. MMODL / IJN: [id number] /
--- NOTE | 2019-01-14 20:37 | PN ---
PROGRESS NOTE CHIEF COMPLAINT: Status post right shoulder. HISTORY OF PRESENT ILLNESS: This lady is doing well and will probably be going home today. She has had no fever, chills, nausea, vomiting, etc. PHYSICAL EXAMINATION: Chest is clear. Cardiac exam is normal. Abdomen is soft, nontender. IMPRESSION: Status post right shoulder replacement. PLAN: Probably home today. MMODL / IJN: [id number] /
== END 2019-01-14 11:30 | disposition home health service (06) | DRG 483 ==
LOC: 2ORMAIN 08:53 → 4SSUR 13:58
PROVIDERS: ADMIT Orthopaedic Surgery; ATTEND Orthopaedic Surgery
PROC: 0RRJ0JZ Replacement of Right Shoulder Joint with Synthetic Substitute, Open Approach (ICD-10-PCS; principal; 2019-01-13 10:45)
DX: M19.011 Primary osteoarthritis, right shoulder (principal); I11.0 Hypertensive heart disease with heart failure; I50.9 Heart failure, unspecified; G89.18 Other acute postprocedural pain; E78.2 Mixed hyperlipidemia; E78.00 Pure hypercholesterolemia, unspecified; E03.9 Hypothyroidism, unspecified; R32 Unspecified urinary incontinence; J44.9 Chronic obstructive pulmonary disease, unspecified; E11.9 Type 2 diabetes mellitus without complications; F32.9 Major depressive disorder, single episode, unspecified; F90.9 Attention-deficit hyperactivity disorder, unspecified type; E55.9 Vitamin D deficiency, unspecified; G89.29 Other chronic pain; M54.9 Dorsalgia, unspecified; N95.9 Unspecified menopausal and perimenopausal disorder; E66.9 Obesity, unspecified; Z68.38 Body mass index [BMI] 38.0-38.9, adult; F17.210 Nicotine dependence, cigarettes, uncomplicated; Z79.84 Long term (current) use of oral hypoglycemic drugs; Z79.890 Hormone replacement therapy; Z79.899 Other long term (current) drug therapy; Z96.642 Presence of left artificial hip joint; Z98.51 Tubal ligation status; Z98.890 Other specified postprocedural states; Z86.718 Personal history of other venous thrombosis and embolism; Z90.10 Acquired absence of unspecified breast and nipple; Z88.0 Allergy status to penicillin
CPT/HCPCS: 64415; 76942; 83036; 85025; 88300

== ENCOUNTER 2019-03-16 18:23 | Emergency (ER) | payer OTHER ==
[2019-03-16 18:31] VITALS: TEMP 98.2
--- NOTE | 2019-03-16 18:31 | ED ---
Chest Pain HPI <Geetha Howard - Last Filed: 03/16/19 18:29> - General Source: patient - History of Present Illness MD Complaint: chest pain Onset/Timin -: hour(s) Onset: during rest Pain Location: left chest Pain Radiation: LUE, back Severity: moderate Quality: heaviness Consistency: constant Improves With: nothing Worsens With: inspiration Treatments Prior to Arrival: nitroglycerin <Go Benjamin - Last Filed: 03/16/19 23:30> - General Stated Complaint: Chest pain - History of Present Illness Initial Comments: seen in triage CP since yesterday, described as pressure, took 4 nitro today, helped for short time, currently 09/24 pain CP orders in (Geetha Howard) Patient's 58-year-old woman presenting with chest pain that is been present since yesterday afternoon. She describes it as a heaviness or pressure, moderate severity, constant. She did try taking nitroglycerin 4 tablets she tells me that it was without any change, contrary to triage note. The patient denies associated symptoms. No diaphoresis, dyspnea, palpitations, lighthe adedness or syncope area no nausea or vomiting. (Go Benjamin) - Related Data Home Medications Medication Instructions Recorded Confirmed Levothyroxine Sodium [Synthroid] 150 mcg PO DAILY 02/07/15 01/07/19 OXcarbazepine [Trileptal] 600 mg PO BID 01/25/16 01/07/19 busPIRone HCL [Buspar] 30 mg PO TID 01/25/16 01/07/19 Albuterol Inhaler [Ventolin Hfa 2 puff INHALATION RT-QID PRN 10/23/16 01/07/19 Inhaler] Budesonide-Formot 160-4.5 Mcg 2 puff INHALATION RT-BID PRN 10/23/16 01/07/19 [Symbicort 160-4.5 Mcg Inhaler] traZODone HCL 100 mg PO HS 10/23/16 01/13/19 Atorvastatin Calcium [Lipitor] 80 mg PO HS 12/01/17 01/07/19 Cholecalciferol [Vitamin D3 (25 5,000 unit PO DAILY 12/01/17 01/13/19 Mcg = 1000 Iu)] Etodolac [Lodine] 500 mg PO BID 12/01/17 01/07/19 Metoprolol Tartrate [Lopressor] 50 mg PO BID 12/01/17 01/07/19 Multivitamins, Thera [Multivitamin 1 tab PO DAILY 12/01/17 01/07/19 (formulary)] Atomoxetine HCl [Strattera] 80 mg PO QAM 01/07/19 01/13/19 Gabapentin [Neurontin] 600 mg PO TID 01/07/19 01/07/19 Isosorbide Mononitrate ER [Imdur] 60 mg PO DAILY 01/07/19 01/07/19 Lisinopril [Zestril] 2.5 mg PO DAILY 01/07/19 01/07/19 Umeclidinium [place] [Incruse 1 puff INHALATION BID 01/07/19 01/13/19 Ellipta] cloNIDine HCL [Catapres] 0.1 mg PO BID 01/07/19 01/07/19 sitaGLIPtin PHOSPHATE [Januvia] 100 mg PO DAILY 01/07/19 01/07/19 Previous Rx's Medication Instructions Recorded Nitroglycerin Sl Tabs [Nitrostat] 0.4 mg SUBLINGUAL Q5M PRN #25 tab 01/25/16 Acetaminophen Tab [Tylenol] 325 mg PO Q6HR PRN tab 12/02/17 Aspirin 325 mg PO DAILY #20 tab 01/14/19 Hydrocodone/Acetaminophen [[place] 1 - 2 each PO Q6HR PRN #40 tab 01/14/19 5-325] Allergies Allergy/AdvReac Type Severity Reaction Status Date / Time Penicillins Allergy Severe Itching Verified 03/16/19 18:31 Review of Systems ROS Other: All systems not noted in ROS Statement are negative. <Geetha Howard - Last Filed: 03/16/19 18:29> ROS Other: All systems not noted in ROS Statement are negative. Constitutional: Denies: fever, chills Respiratory: Reports: dyspnea (At baseline she states has COPD), wheezes. Denies: cough, hemoptysis Cardiovascular: Reports: as per HPI, chest pain. Denies: palpitations, dyspnea on exertion, orthopnea, edema, syncope Gastrointestinal: Denies: abdominal pain, nausea, vomiting Genitourinary: Denies: dysuria Musculoskeletal: Denies: back pain Skin: Denies: rash Neurological: Denies: headache, weakness <Go Benjamin - Last Filed: 03/16/19 23:30> ROS Statement: Those systems with pertinent positive or pertinent negative responses have been documented in the HPI. EKG Findings - EKG Results: EKG: interpreted by HEMAL BURRIS, sinus rhythm (Rate 73 bpm), normal axis, normal QRS, normal ST/T, no acute changes - PR, Pacemaker, Normal: Normal tracing: normal tracing <Go Benjamin - Last Filed: 03/16/19 23:30> Past Medical History Past Medical History: Chest Pain / Angina, COPD, Diabetes Mellitus, Deep Vein Thrombosis (DVT), Eye Disorder, Fibromyalgia, Hyperlipidemia, Hypertension, Osteoarthritis (OA), Pneumonia, Rheumatoid Arthritis (RA), Thyroid Disorder Additional Past Medical History / Comment(s): migraines, diabetic neuropathy in hands and feet, bilateral cataracts, limited ROM billy arm-"shoulder cartlidge problem". swelling of lower legs at times DVT- LEFT LEG 10/03 History of Any Multi-Drug Resistant Organisms: None Reported Past Surgical History: Heart Catheterization, Joint Replacement, Orthopedic Surgery, Tubal Ligation Additional Past Surgical History / Comment(s): right foot surgery, total left hip arthroplasty, lumbar puncture, R breast surgery for horse bite wound, Past Anesthesia/Blood Transfusion Reactions: Motion Sickness Past Psychological History: ADD/ADHD, Anxiety, Bipolar, Depression Additional Psychological History / Comment(s): She states she did attempt suicide years ago by cutting her wrists. 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 smokes 1 PPD Past Drug Use History: None Reported - Past Family History Mother History Unknown: Yes Family Medical History: Unable to Obtain Additional Family Medical History / Comment(s): pt adopted-no hx Father History Unknown: Yes Additional Family Medical History / Comment(s): Pt was adopted. <Kat Howardnifer Jessica - Last Filed: 03/16/19 18:29> General Exam General appearance: alert, in no apparent distress Head exam: Present: atraumatic, normocephalic Eye exam: Present: normal appearance. Absent: scleral icterus, conjunctival injection ENT exam: Present: normal oropharynx Neck exam: Present: normal inspection Respiratory exam: Present: wheezes. Absent: respiratory distress, rales, rhonchi, stridor Cardiovascular Exam: Present: regular rate, normal rhythm, normal heart sounds. Absent: systolic murmur, diastolic murmur, rubs, gallop GI/Abdominal exam: Present: soft. Absent: distended, tenderness, guarding, rebound, rigid Extremities exam: Present: normal inspection, normal capillary refill. Absent: pedal edema, calf tenderness Back exam: Present: normal inspection. Absent: CVA tenderness (R), CVA tenderness (L) Neurological exam: Present: alert Skin exam: Present: warm, dry, intact, normal color. Absent: rash <Go Benjamin - Last Filed: 03/16/19 23:30> Course Vital Signs 03/16/19 03/16/19 18:28 22:00 Temperature 98.2 F Pulse Rate 76 75 Respiratory 18 20 Rate Blood Pressure 150/83 117/63 O2 Sat by Pulse 97 96 Oximetry Chest Pain MDM <oG Benjamin - Last Filed: 03/16/19 23:30> - MDM Patient is 58-year-old woman in with left-sided chest pain that has mixture of typical and atypical features. The patient relates that she did have duplex Doppler of her leg yesterday. She had been having some leg swelling. The patient had a borderline d-dimer, and therefore had computed tomography scan here. I discussed admission for serial cardiac enzymes and telemetry mo nitoring, but the patient states that she is not going to stay she wanted to sign out AMA. She does understand that we cannot completely rule out cardiac etiology. Also discussed that there is some risk of having a false negative duplex Doppler or CT angiogram and that she must have these tests repeated if the symptoms do not resolve. She will follow-up to have a repeat duplex of her leg if her symptoms do not clear. (Go Benjamin) Disposition <Geetha Howard - Last Filed: 03/16/19 18:29> Is patient prescribed a controlled substance at d/c from ED?: No <Go Benjamin - Last Filed: 03/16/19 23:30> Clinical Impression: Chest pain Disposition: Left Against Medical Advice Condition: Fair Instructions (If sedation given, give patient instructions): Chest Pain (ED) Additional Instructions: As we discussed, follow with the animal nutrition teacher to discuss possibility of sarcoidosis amongst other diagnoses. Referrals: Jay Jay Longo MD [Primary Care Provider] - 1-2 days Stella Martin MD [STAFF PHYSICIAN] - 1-2 days
[2019-03-16 18:48] LABS: Basophils % (A) 0 %; Eosinophils # (A) 0.2 k/uL (0-0.7); Eosinophils % (A) 2 %; HCT 40.4 % (34.0-46.0); HGB 12.7 gm/dL (11.4-16.0); Lymphocytes # (A) 2.2 k/uL (1.0-4.8); Lymphocytes % (A) 20 %; MCH 27.6 pg (25.0-35.0); MCHC 31.5 g/dL (31.0-37.0); MCV 87.5 fL (80.0-100.0); Mean Platelet Volume 6.8; Monocytes # (A) 0.4 k/uL (0-1.0); Monocytes % (A) 3 %; Neutrophils # (A) 7.9 k/uL (1.3-7.7); Neutrophils % (A) 73 %; Platelet Count 287 k/uL (150-450); RBC 4.62 m/uL (3.80-5.40); RDW 13.7 % (11.5-15.5); WBC 10.9 k/uL (3.8-10.6)
[2019-03-16 19:04] LABS: INR 0.9 (<1.2); Partial Thromboplastin Time 26.5 sec (22.0-30.0); Prothrombin Time 10.2 sec (9.0-12.0)
[2019-03-16 19:06] LABS: Potassium 4.3 mmol/L (3.5-5.1)
[2019-03-16 19:07] LABS: Albumin 3.9 g/dL (3.5-5.0); Calcium 9.7 mg/dL (8.4-10.2); Total Bilirubin 0.4 mg/dL (0.2-1.3); Total Protein 6.9 g/dL (6.3-8.2)
--- NOTE | 2019-03-16 19:56 | XR ---
EXAMINATION TYPE: XR chest 2V DATE OF EXAM: 03/16/2019 COMPARISON: 12/18/2017 HISTORY: Chest pain TECHNIQUE: 2 views FINDINGS: There is moderate coarse interstitial density in the lungs. Heart size is normal. There is no evidence of heart failure. There is no pleural effusion. IMPRESSION: Moderately severe pulmonary interstitial fibrosis that show some progression compared to last exam.
[2019-03-16] MEDS ORDERED: KETOROLAC 30 MG/ML 1 ML VIAL IVP STA (21:43)
[2019-03-16 22:12] LABS: D-Dimer 0.97 mg/L FEU (<0.60)
[2019-03-16 22:33] VITALS: RESP 20
--- NOTE | 2019-03-16 23:06 | CT ---
EXAMINATION TYPE: CT chest angio for PE DATE OF EXAM: 03/16/2019 COMPARISON: 12/01/2017 HISTORY: SOB CT DLP: 993.4 mGycm Automated exposure control for dose reduction was used. CONTRAST: Performed with IV Contrast, patient injected with 60 mL of Isovue 370. There are 3-D post processed images. There is extensive coarse interstitial infiltrate in both lungs. There is no suspicious pulmonary mas s. There is no pleural effusion. Heart appears fairly normal. There is no pericardial effusion. Thora cic aorta is intact. There is no aneurysm or dissection. Ascending aorta measures 3.3 cm. There is normal contrast opacification of the pulmonary arteries. I see no filling defect. There are a few paratracheal lymph nodes that measure up to 1 cm. There are bronchial lymph nodes bilaterally that measure up to 1.5 cm. There is spurring in the thoracic spine. IMPRESSION: No evidence of pulmonary embolism. Pulmonary interstitial fibrotic changes. Mild mediastinal adenopathy. There is improvement in the belén nopathy compared to old exam. This could relate to sarcoidosis. Interstitial lung disease not signifi cantly different than old exam.
[2019-03-16 23:45] VITALS: BP 126/81; PULSE 73
== END 2019-03-16 23:50 | disposition left against medical advice (07) ==
LOC: EC 18:23
DX: R07.89 Other chest pain (principal); R06.2 Wheezing; M79.89 Other specified soft tissue disorders; M54.9 Dorsalgia, unspecified; M79.602 Pain in left arm; J44.9 Chronic obstructive pulmonary disease, unspecified; E11.42 Type 2 diabetes mellitus with diabetic polyneuropathy; M79.7 Fibromyalgia; E78.5 Hyperlipidemia, unspecified; I10 Essential (primary) hypertension; M19.90 Unspecified osteoarthritis, unspecified site; M06.9 Rheumatoid arthritis, unspecified; E07.9 Disorder of thyroid, unspecified; F90.9 Attention-deficit hyperactivity disorder, unspecified type; F41.9 Anxiety disorder, unspecified; F31.9 Bipolar disorder, unspecified; F17.210 Nicotine dependence, cigarettes, uncomplicated; Z88.0 Allergy status to penicillin; Z79.1 Long term (current) use of non-steroidal anti-inflammatories (NSAID); Z79.51 Long term (current) use of inhaled steroids; Z79.84 Long term (current) use of oral hypoglycemic drugs; Z79.890 Hormone replacement therapy; Z79.899 Other long term (current) drug therapy; Z86.69 Personal history of other diseases of the nervous system and sense organs; Z53.20 Procedure and treatment not carried out because of patient's decision for unspecified reasons
CPT/HCPCS: 36415; 93005; 85379; 80053; 83735; 84484; 85025; 85610; 85730; 71046; 71275; 99285; Q9967

== ENCOUNTER → 2019-12-09 | Outpatient (CLI) | payer OTHER ==
[2019-12-09 12:28] LABS: Albumin 3.9 g/dL (3.5-5.0); Calcium 9.4 mg/dL (8.4-10.2); Potassium 4.6 mmol/L (3.5-5.1); Total Bilirubin 0.6 mg/dL (0.2-1.3); Total Protein 6.7 g/dL (6.3-8.2)
--- NOTE | 2019-12-10 09:35 | CT ---
EXAMINATION TYPE: CT abdomen pelvis w con DATE OF EXAM: 12/09/2019 COMPARISON: None INDICATION: ABNORMAL WEIGHT LOSS DLP: 1755.4 mGycm, Automated exposure control for dose reduction was used. CONTRAST: 100 mL of Isovue 300. Study performed with Oral Contrast TECHNIQUE: Axial images were obtained from above the diaphragm to the pubic rami in the axial plane a t 5 mm thick sections. Reconstructed images are reviewed on the computer in the coronal plane. FINDINGS: Limited CT sections are obtained the lung bases. Groundglass opacities and mild scattered infiltrate s are present. Correlate for fluid overload. Infectious etiologies including atypical pneumonia shoul d be considered.. CT ABDOMEN: Liver: There is mild fatty infiltration to the liver. Spleen: Normal Pancreas: Normal Adrenal glands: The adrenal glands are normal. Gallbladder: Normal Kidneys: No masses are evident. No hydronephrosis is present. No cysts are present. Delayed images were obtained through the kidneys, which remain unremarkable. Aorta: Vascular calcification is within the aorta. Inferior vena cava: Normal. CT PELVIS: There is a left hip prosthesis causing beam hardening artifact. This has some mild limitat ion on the lower pelvis. Loops of bowel within the abdomen and pelvis are normal. There are loops of bowel which are incom pletely distended or lack oral contrast limiting their evaluation. Appendix: Normal as visualized. Urinary bladder: Normal. Genitourinary structures: Mild prostate hypertrophy Osseous structures: No suspicious lytic or sclerotic lesions. Degenerative changes are at the right h ip. Sacroiliac joint degenerative changes are present. Facet degenerative changes and hypertrophy are present. Degenerative disc changes are within the lumbar spine with vacuum phenomenon. Some spinal c anal narrowing may be present L1-2 IMPRESSIONS: 1. Mild infiltrates at the bilateral lung bases. Correlate for volume overload or infectious etiolog y. Follow-up can be performed as clinically indicated. 2. Degenerative changes within the osseous structures discussed above. MRI of the lumbar spine can be performed if clinically indicated.
== END | disposition home or self-care (01) ==
LOC: RADCTMAIN 10:10
PROVIDERS: ATTEND Internal Medicine Gastroenterology
DX: R91.8 Other nonspecific abnormal finding of lung field (principal); R63.4 Abnormal weight loss
CPT/HCPCS: 80053; 74177; 36415; Q9967

== ENCOUNTER 2020-04-04 15:51 | Observation (INO) | payer OTHER ==
[2020-04-04] MEDS ORDERED: NITROGLYCERIN OINT 1 INCH/GM PACKET TOPICAL STA (16:14)
--- NOTE | 2020-04-04 16:18 | ED ---
General Adult HPI - General Chief complaint: Chest Pain Stated complaint: Chest pain Time Seen by Provider: 04/04/20 16:03 Source: patient, RN notes reviewed Mode of arrival: EMS Limitations: no limitations - History of Present Illness Initial comments: Patient is a pleasant 59-year-old female presenting to the emergency department complaints of chest discomfort. Onset of symptoms was a week ago. Symptoms have been waxing and waning and intermittent. Discomfort is currently mild following a trip glycerin by EMS. Discomfort feels like tightness in her chest without radiation. No associated dyspnea, nausea, diaphoresis. Patient does have history of similar symptoms previously with negative evaluation. No leg pain or leg swelling. - Related Data Home Medications Medication Instructions Recorded Confirmed Levothyroxine Sodium [Synthroid] 150 mcg PO DAILY 02/07/15 04/04/20 traZODone HCL 100 mg PO HS PRN 10/23/16 04/04/20 Atorvastatin Calcium [Lipitor] 80 mg PO HS 12/01/17 04/04/20 Cholecalciferol [Vitamin D3 (25 2,000 unit PO DAILY 12/01/17 04/04/20 Mcg = 1000 Iu)] Metoprolol Tartrate [Lopressor] 50 mg PO BID 12/01/17 04/04/20 Multivitamins, Thera [Multivitamin 1 tab PO DAILY 12/01/17 04/04/20 (formulary)] Isosorbide Mononitrate ER [Imdur] 60 mg PO DAILY 01/07/19 04/04/20 Umeclidinium [place] [Incruse 1 puff INHALATION RT-DAILY 01/07/19 04/04/20 Ellipta] cloNIDine HCL [Catapres] 0.1 mg PO BID 01/07/19 04/04/20 Aspirin [Adult Low Dose Aspirin EC] 81 mg PO DAILY 12/04/19 04/04/20 Biotin 10,000 mcg PO DAILY 12/04/19 04/04/20 Cyanocobalamin [Vitamin B-12] 1,000 mcg PO DAILY 12/04/19 04/04/20 Escitalopram [Lexapro] 10 mg PO PC-LUNCH 12/04/19 04/04/20 Escitalopram [Lexapro] 20 mg PO QAM 12/04/19 04/04/20 Glimepiride [Amaryl] 2 mg PO PC-LUNCH 12/04/19 04/04/20 Ondansetron [Zofran] 4 mg PO Q8HR PRN 12/04/19 04/04/20 lisinopriL 40 mg PO DAILY 12/04/19 04/04/20 Albuterol Sulfate [Proair Hfa] 2 puff INHALATION RT-QID PRN 04/04/20 04/04/20 Cetirizine HCl 10 mg PO DAILY 04/04/20 04/04/20 Diclofenac Sodium [Voltaren] 50 mg PO TID 04/04/20 04/04/20 Docusate [Colace] 100 mg PO DAILY PRN 04/04/20 04/04/20 Hydrocodone/Acetaminophen [Vicodin 1 tab PO BID PRN 04/04/20 04/04/20 ES 7.5-300 mg] Nitroglycerin Sl Tabs [Nitrostat] 0.4 mg SUBLINGUAL Q5M PRN 04/04/20 04/04/20 [place]-3 Fatty Acids/Fish Oil [Fish 1 cap PO DAILY 04/04/20 04/04/20 Oil 1,000 mg Softgel] busPIRone HCL 30 mg PO TID 04/04/20 04/04/20 Allergies Allergy/AdvReac Type Severity Reaction Status Date / Time Penicillins Allergy Severe Itching Verified 04/04/20 16:47 Review of Systems ROS Statement: Those systems with pertinent positive or pertinent negative responses have been documented in the HPI. ROS Other: All systems not noted in ROS Statement are negative. Constitutional: Denies: fever Eyes: Denies: eye pain ENT: Denies: ear pain Respiratory: Denies: cough, dyspnea Cardiovascular: Reports: chest pain. Denies: palpitations Endocrine: Denies: fatigue Gastrointestinal: Denies: abdominal pain Genitourinary: Denies: dysuria Musculoskeletal: Denies: back pain Skin: Denies: rash Neurological: Denies: weakness Past Medical History Past Medical History: Chest Pain / Angina, COPD, Diabetes Mellitus, Deep Vein Thrombosis (DVT), Eye Disorder, Fibromyalgia, Hyperlipidemia, Hypertension, Osteoarthritis (OA), Pneumonia, Rheumatoid Arthritis (RA), Thyroid Disorder Additional Past Medical History / Comment(s): migraines, diabetic neuropathy hands and feet, cataracts, limited ROM billy arm., occasional swelling of lower legs ., DVT- LEFT LEG 10/03 , back pain, hx colon polyp, states vomiting with 50 # wt loss in the last 6 months., hx fall with "scrape " on her knee. History of Any Multi-Drug Resistant Organisms: None Reported Past Surgical History: Heart Catheterization, Joint Replacement, Orthopedic Surgery, Tubal Ligation Additional Past Surgical History / Comment(s): right foot surgery, total left hip arthroplasty, lumbar puncture, R breast surgery for horse bite wound, Past Anesthesia/Blood Transfusion Reactions: No Reported Reaction, Motion Sickness Past Psychological History: ADD/ADHD, Anxiety, Bipolar, Depression Smoking Status: Current every day smoker Past Alcohol Use History: Rare Past Drug Use History: None Reported - Past Family History Mother History Unknown: Yes Family Medical History: Unable to Obtain Additional Family Medical History / Comment(s): pt adopted-no hx Father History Unknown: Yes Additional Family Medical History / Comment(s): Pt was adopted. General Exam Limitations: no limitations General appearance: alert, in no apparent distress Head exam: Present: normocephalic Eye exam: Present: normal appearance Neck exam: Present: normal inspection Respiratory exam: Present: normal lung sounds bilaterally. Absent: chest wall tenderness Cardiovascular Exam: Present: regular rate, normal rhythm, normal heart sounds Expanded Peripheral pulses: 2+: Radial (R), Radial (L), Dorsalis Pedis (R), Dorsalis Pedis (L) GI/Abdominal exam: Present: soft. Absent: tenderness Extremities exam: Present: normal inspection. Absent: pedal edema, calf tenderness Neurological exam: Present: alert Psychiatric exam: Present: normal affect, normal mood Skin exam: Present: normal color Course Vital Signs 04/04/20 04/04/20 15:53 16:06 Temperature 98.7 F Pulse Rate 55 L Pulse Rate [ 55 L Pulse Oximetery ] Respiratory 18 Rate Blood Pressure 138/73 O2 Sat by Pulse 95 Oximetry EKG Findings - EKG Comments: EKG Findings:: Sinus bradycardia 56. LA 170. QRS 86. QT 472. QTC 455. Normal axis. Normal QRS. No acute ST change. Poor R-wave progression. Medical Decision Making - Medical Decision Making Patient reevaluated and resting comfortably in bed. Patient feeling better. Patient updated on results and plan. Case was discussed with practitioner karl Kelly for Dr. Ruelas, who will admit for hospital call. - Lab Data Result diagrams: 04/04/20 16:24 04/04/20 16:24 Lab Results 04/04/20 04/04/20 04/04/20 Range/Units 16:24 16:24 16:24 WBC 7.3 (3.8-10.6) k/uL RBC 4.27 (3.80-5.40) m/uL Hgb 12.5 (11.4-16.0) gm/dL Hct 36.8 (34.0-46.0) % MCV 86.1 (80.0-100.0) fL MCH 29.2 (25.0-35.0) pg MCHC 33.9 (31.0-37.0) g/dL RDW 14.1 (11.5-15.5) % Plt Count 259 (150-450) k/uL MPV 6.9 Neutrophils % 61 % Lymphocytes % 28 % Monocytes % 5 % Eosinophils % 5 % Basophils % 0 % Neutrophils # 4.5 (1.3-7.7) k/uL Lymphocytes # 2.1 (1.0-4.8) k/uL Monocytes # 0.4 (0-1.0) k/uL Eosinophils # 0.3 (0-0.7) k/uL Basophils # 0.0 (0-0.2) k/uL PT 10.8 (9.0-12.0) sec INR 1.0 (<1.2) APTT 24.2 (22.0-30.0) sec Sodium 141 (137-145) mmol/L Potassium 4.0 (3.5-5.1) mmol/L Chloride 107 (98-107) mmol/L Carbon Dioxide 29 (22-30) mmol/L Anion Gap 5 mmol/L BUN 14 (7-17) mg/dL Creatinine 0.84 (0.52-1.04) mg/dL Est GFR (CKD-EPI)AfAm 87 (>60 ml/min/1.73 sqM) Est GFR (CKD-EPI)NonAf 76 (>60 ml/min/1.73 sqM) Glucose 101 H (74-99) mg/dL Calcium 9.1 (8.4-10.2) mg/dL Magnesium 1.9 (1.6-2.3) mg/dL Total Bilirubin 0.5 (0.2-1.3) mg/dL AST 25 (14-36) U/L ALT 20 (4-34) U/L Alkaline Phosphatase 98 (38-126) U/L Troponin I (0.000-0.034) ng/mL Total Protein 6.4 (6.3-8.2) g/dL Albumin 3.5 (3.5-5.0) g/dL 04/04/20 Range/Units 16:24 WBC (3.8-10.6) k/uL RBC (3.80-5.40) m/uL Hgb (11.4-16.0) gm/dL Hct (34.0-46.0) % MCV (80.0-100.0) fL MCH (25.0-35.0) pg MCHC (31.0-37.0) g/dL RDW (11.5-15.5) % Plt Count (150-450) k/uL MPV Neutrophils % % Lymphocytes % % Monocytes % % Eosinophils % % Basophils % % Neutrophils # (1.3-7.7) k/uL Lymphocytes # (1.0-4.8) k/uL Monocytes # (0-1.0) k/uL Eosinophils # (0-0.7) k/uL Basophils # (0-0.2) k/uL PT (9.0-12.0) sec INR (<1.2) APTT (22.0-30.0) sec Sodium (137-145) mmol/L Potassium (3.5-5.1) mmol/L Chloride (98-107) mmol/L Carbon Dioxide (22-30) mmol/L Anion Gap mmol/L BUN (7-17) mg/dL Creatinine (0.52-1.04) mg/dL Est GFR (CKD-EPI)AfAm (>60 ml/min/1.73 sqM) Est GFR (CKD-EPI)NonAf (>60 ml/min/1.73 sqM) Glucose (74-99) mg/dL Calcium (8.4-10.2) mg/dL Magnesium (1.6-2.3) mg/dL Total Bilirubin (0.2-1.3) mg/dL AST (14-36) U/L ALT (4-34) U/L Alkaline Phosphatase (38-126) U/L Troponin I <0.012 (0.000-0.034) ng/mL Total Protein (6.3-8.2) g/dL Albumin (3.5-5.0) g/dL - Radiology Data Radiology results: image reviewed (Chest x-ray shows coarse interstitial density, similar to previous, possible fibrosis) Disposition Clinical Impression: Chest pain Disposition: ADMITTED IP TO THIS HOSP Is patient prescribed a controlled substance at d/c from ED?: No Referrals: None,Stated [REFERRING] - 1-2 days Decision Time: 17:56
[2020-04-04] MEDS: ASPIRIN 81 MG PO STA ×2 (16:31→16:43)
[2020-04-04 16:32] LABS: Basophils % (A) 0 %; Eosinophils # (A) 0.3 k/uL (0-0.7); Eosinophils % (A) 5 %; HCT 36.8 % (34.0-46.0); HGB 12.5 gm/dL (11.4-16.0); Lymphocytes # (A) 2.1 k/uL (1.0-4.8); Lymphocytes % (A) 28 %; MCH 29.2 pg (25.0-35.0); MCHC 33.9 g/dL (31.0-37.0); MCV 86.1 fL (80.0-100.0); Mean Platelet Volume 6.9; Monocytes # (A) 0.4 k/uL (0-1.0); Monocytes % (A) 5 %; Neutrophils # (A) 4.5 k/uL (1.3-7.7); Neutrophils % (A) 61 %; Platelet Count 259 k/uL (150-450); RBC 4.27 m/uL (3.80-5.40); RDW 14.1 % (11.5-15.5); WBC 7.3 k/uL (3.8-10.6)
[2020-04-04 16:41] LABS: Albumin 3.5 g/dL (3.5-5.0); Calcium 9.1 mg/dL (8.4-10.2); Magnesium 1.9 mg/dL (1.6-2.3); Partial Thromboplastin Time 24.2 sec (22.0-30.0); Prothrombin Time 10.8 sec (9.0-12.0); Total Bilirubin 0.5 mg/dL (0.2-1.3); Total Protein 6.4 g/dL (6.3-8.2)
--- NOTE | 2020-04-04 17:17 | XR ---
EXAMINATION TYPE: XR chest 2V DATE OF EXAM: 04/04/2020 COMPARISON: 03/16/2019 HISTORY: Chest pain TECHNIQUE: FINDINGS: There is general coarsening interstitial density throughout the lungs. Heart size is normal . There is no gross heart failure. There is no pleural effusion. There is right shoulder prosthesis. IMPRESSION: Coarse interstitial density consistent with pulmonary fibrosis that is unchanged compared to old exam. Normal heart.
[2020-04-04] MEDS ORDERED: NITROGLYCERIN SL TABS 0.4 MG TAB SUBLINGUAL PRN ×2 (18:04→20:03)
[2020-04-04 19:53] LABS: Glucose,Whole Blood 113 mg/dL (75-99)
[2020-04-04] MEDS ORDERED: HYDROcodone/APAP 7.5-325MG 1 EACH TAB PO PRN (20:03)
[2020-04-04] MEDS ORDERED: ALBUTEROL HFA INHALER INHALATION PRN (20:03)
[2020-04-04] MEDS ORDERED: ONDANSETRON 4 MG TAB PO PRN (20:03)
[2020-04-04] MEDS ORDERED: traZODone HCL 100 MG TAB PO PRN (20:03)
[2020-04-04] MEDS ORDERED: DOCUSATE 100 MG CAP PO PRN (21:00)
[2020-04-04] MEDS ORDERED: ATORVASTATIN 80 MG TAB PO SCH (21:00)
[2020-04-04] MEDS ORDERED: NICOTINE 7MG/24HR PATCH TRANSDERM SCH (21:00)
[2020-04-04] MEDS: INSULIN ASPART (NovoLOG) 100 UNIT/ML VIAL SQ SCH (21:31)
[2020-04-04] MEDS: busPIRone HCl 10 MG TAB PO SCH (21:48)
[2020-04-04] MEDS: cloNIDine HCL 0.1 MG TAB PO SCH (21:48)
[2020-04-04] MEDS: METOPROLOL TARTRATE 50 MG TAB PO SCH (21:49)
[2020-04-05] MEDS: NITROGLYCERIN OINT 1 INCH/GM PACKET TOPICAL SCH ×2 (00:23→05:26)
[2020-04-05 04:12] LABS: Cholesterol 118 mg/dL (<200); HDL Cholesterol 41 mg/dL (40-60); LDL Cholesterol,Calculated 45 mg/dL (0-99); Triglycerides 160 mg/dL (<150)
[2020-04-05 06:24] LABS: Glucose,Whole Blood 162 mg/dL (75-99)
[2020-04-05] MEDS ORDERED: LEVOTHYROXINE 75 MCG TAB PO SCH (06:30)
[2020-04-05] MEDS: INSULIN ASPART (NovoLOG) 100 UNIT/ML VIAL SQ SCH (06:31)
[2020-04-05] MEDS ORDERED: IPRATROPIUM 0.5 MG/2.5 ML NEBU INHALATION SCH (08:00)
[2020-04-05] MEDS ORDERED: DOBUTamine DRIP for NUC MED 500 MG in DEXTROSE/WATER 1 250ML.BAG IV PRN (08:05)
[2020-04-05 08:29] VITALS: RESP 16; TEMP 97.4
--- NOTE | 2020-04-05 08:47 | CONS ---
CONSULTATION Mrs. France is a 59-year-old female who follows with Dr. Blackwood, who presented to the emergency room with symptoms of chest discomfort. She has been having discomfort on and off for the last week, lasting for a few seconds, not activity related. Yesterday, she had the longest episode that lasted 20 seconds. The patient has no prior history of myocardial infarction. She carries diagnosis of CHF. She has chronic dyspnea on exertion and smokes about a pack and half a day. She denies any syncope. She has occasional dizziness and peripheral edema. No PND nor orthopnea. She has underwent a stress dobutamine echocardiogram in 2016 that showed no evidence of inducible ischemia and her systolic function was normal. Her coronary risk factors remarkable for hypertension, chronic tobacco use, diabetes and hyperlipidemia. MEDICATION: Her medications at home include aspirin, Lipitor 80 mg daily, buspirone, clonidine 0.1 mg twice a day, Lexapro, Amaryl, Imdur 60 mg daily, Synthroid, metoprolol tartrate 50 mg twice a day, Zofran, Incruse Ellipta, omega-3 fish oil, and trazodone. REVIEW OF SYSTEMS: RESPIRATORY SYSTEM: She has chronic dyspnea on exertion, chronic obstructive lung disease with chronic tobacco use. GI SYSTEM: No recent GI bleeding, no peptic ulcer disease. SYSTEM: No dysuria or hematuria. NERVOUS SYSTEM: No stroke or seizure. PHYSICAL EXAMINATION: She is a 59-year-old female, alert, oriented, and in no apparent distress. Blood pressure running in the 130s with the heart rate in the 50s and 60s. HEAD: Normocephalic. EYES: Sclerae nonicteric. NECK: Good carotid upstroke. No bruit. No jugular venous distention. LUNGS: Clear to auscultation. HEART: Irregular rate and rhythm. S1, S2. No S3 with systolic murmur heard at the base, ejection type 2/6. No diastolic murmur. No rub. ABDOMEN: Soft, nontender. Positive bowel sounds. No organomegaly. EXTREMITIES: No edema. Intact distal pulses. LAB DATA: Lab data revealed hemoglobin 12.5, white blood cell of 7.3. BUN and creatinine 14 and 0.84. Troponin less than 0.012. Cholesterol 118, LDL of 45. EKG revealed a sinus mechanism, rate of 56, poor R-wave progression. No acute ST- segment changes. Chest x-ray shows changes of pulmonary fibrosis were noted in the past. IMPRESSION: 1. Chest discomfort, atypical for ischemic heart disease, appears to be noncardiac. 2. History of chronic tobacco use with chronic obstructive lung disease. 3. Hypertension. 4. Hyperlipidemia. 5. Diabetes mellitus. RECOMMENDATION: I have recommended proceeding with dobutamine stress echocardiogram as well as transthoracic echo to assess her status and guide her treatment. Depending on results of testing, further recommendation will be made. Those findings and recommendations were discussed with the patient, who was in full understanding and agreement. MMODL / IJN: [id number] /
[2020-04-05] MEDS ORDERED: ASPIRIN 325 MG TAB PO SCH (09:00)
[2020-04-05] MEDS ORDERED: ISOSORBIDE MONONITRATE ER 60 MG TAB.ER.24H PO SCH (09:00)
[2020-04-05] MEDS ORDERED: ESCITALOPRAM 20 MG TAB PO SCH (09:00)
[2020-04-05] MEDS ORDERED: MULTIVITAMINS, THERA 1 EACH TAB PO SCH (09:00)
[2020-04-05] MEDS ORDERED: CHOLECALCIFEROL 1,000 UNIT TAB PO SCH (09:00)
[2020-04-05] MEDS ORDERED: CYANOCOBALAMIN 500 MCG TAB PO SCH (09:00)
[2020-04-05] MEDS ORDERED: NON FORMULARY DRUG (Biotin [Biotin] 5,000 MCG Tab.Rapdis) PO SCH (09:00)
[2020-04-05] MEDS ORDERED: ASPIRIN 81 MG PO SCH (09:00)
[2020-04-05] MEDS ORDERED: lisinopriL 20 MG TAB PO SCH (09:00)
[2020-04-05] MEDS ORDERED: NON FORMULARY DRUG (Omega-3 Fatty Acids/Fish Oil [Fish Oil 1,000 Mg Softgel] 1 EACH Capsul PO SCH (09:00)
[2020-04-05] MEDS ORDERED: LORATADINE 10 MG TAB PO SCH (09:00)
[2020-04-05] MEDS ORDERED: CHOLECALCIFEROL 25 MCG (1000 IU) TABLET PO SCH (10:00)
--- NOTE | 2020-04-05 10:17 | ECHOF ---
Referral Reason:cp MEASUREMENTS -------- HEIGHT: 172.7 cm WEIGHT: 110.2 kg BP: RVIDd: 3.0 cm (< 3.3) IVSd: 1.4 cm (0.6 - 1.1) LVIDd: 5.2 cm (3.9 - 5.3) LVPWd: 1.3 cm (0.6 - 1.1) IVSs: 2.1 cm LVIDs: 3.4 cm LVPWs: 1.8 cm LA Diam: 4.0 cm (2.7 - 3.8) LAESV Index (A-L): 28.69 ml/m Ao Diam: 3.3 cm (2.0 - 3.7) AV Cusp: 2.0 cm (1.5 - 2.6) MV EXCURSION: 15.618 mm (> 18.000) MV EF SLOPE: 107 mm/s (70 - 150) EPSS: 0.3 cm MV E Dino: 0.77 m/s MV DecT: 376 ms MV A Dino: 0.96 m/s MV E/A Ratio: 0.80 AV maxP.26 mmHg AV meanP.49 mmHg RAP: 5.00 mmHg RVSP: 29.15 mmHg FINDINGS -------- Sinus rhythm. Resting bradycardia (HR<60bpm). This was a technically adequate study. The left ventricular size is normal. There is moderate concentric left ventricular hypertrophy. O verall left ventricular systolic function is normal with, an EF between 55 - 60 %. The diastolic fi lling pattern is normal for the age of the patient 12.28. The right ventricle is normal in size. LA is midly dilated 29-33ml/m2. The right atrial size is normal. Interatrial and interventricular septum intact. The aortic valve is trileaflet, and appears structurally normal. No aortic stenosis or regurgitation. The mitral valve leaflets are mildly thickened. There is trace mitral regurgitation. The tricuspid valve appears structurally normal. Mild tricuspid regurgitation present. Right vent ricular systolic pressure is normal at < 35 mmHg. Trace/mild (physiologic) pulmonic regurgitation. The aortic root size is normal. Normal inferior vena cava with normal inspiratory collapse consistent with estimated right atrial pre ssure of 5 mmHg. The inferior vena cava is mildly dilated. There is no pericardial effusion. CONCLUSIONS -------- 1. There is moderate concentric left ventricular hypertrophy. 2. Overall left ventricular systolic function is normal with, an EF between 55 - 60 %. 3. LA is midly dilated 29-33ml/m2. 4. The aortic valve is trileaflet, and appears structurally normal. No aortic stenosis or regurgitati on. 5. There is trace mitral regurgitation. 6. Mild tricuspid regurgitation present. 7. Trace/mild (physiologic) pulmonic regurgitation. 8. The inferior vena cava is mildly dilated. 9. There is no pericardial effusion. APPLIED PSYCHOLOGY PROFESSOR: Avelina Wang RDCS
[2020-04-05 10:59] LABS: Glucose,Whole Blood 112 mg/dL (75-99)
[2020-04-05] MEDS: busPIRone HCl 10 MG TAB PO SCH (11:33)
[2020-04-05] MEDS: METOPROLOL TARTRATE 50 MG TAB PO SCH (11:35)
[2020-04-05] MEDS: cloNIDine HCL 0.1 MG TAB PO SCH (11:35)
[2020-04-05 11:39] VITALS: BP 142/69; PULSE 69
[2020-04-05 11:57] LABS: Hemoglobin A1C 7.7 % (4.0-6.0)
--- NOTE | 2020-04-05 12:20 | P.HPIM ---
History of Present Illness 59-year-old female came in with complains of chest discomfort on the right side of the chest to sharp in nature last for a few seconds has been going on for about a week and no associated diaphoresis or shortness of breath. Patient just pain is nonpleuritic not associated with food. Patient complains of neck Pain which has been chronic. chest pain actually radiates to the back of the neck. Chest pain is moderate severity breath presently completely resolved. Patient was evaluated by cardiology rule out acute coronary syndromes troponins were negative EKG did not show any acute ST-T wave changes patient had a stress test in 2016 which was negative patient states she had an attempted stress test about any ago and the 3 times before that because of her not feeling well stresses has to be stopped. Patient had an echocardiogram today which did not show any significant abnormality was evaluated by cardiology and cleared for discharge. Review of Systems REVIEW OF SYSTEMS: CONSTITUTIONAL: No fever, no malaise, no fatigue. HEENT: No recent visual problems or hearing problems. Denied any sore throat. CARDIOVASCULAR: No orthopnea, PND, no palpitations, no syncope. PULMONARY: No shortness of breath, no cough, no hemoptysis. GASTROINTESTINAL: No diarrhea, no nausea, no vomiting, no abdominal pain. NEUROLOGICAL: No headaches, no weakness, no numbness. HEMATOLOGICAL: Denies any bleeding or petechiae. GENITOURINARY: Denies any burning micturition, frequency, or urgency. MUSCULOSKELETAL/RHEUMATOLOGICAL: Posterior neck pain as mentioned above ENDOCRINE: Denies any polyuria or polydipsia. The rest of the 14-point review of systems is negative. Past Medical History Past Medical History: Chest Pain / Angina, COPD, Diabetes Mellitus, Deep Vein Thrombosis (DVT), Eye Disorder, Fibromyalgia, Hyperlipidemia, Hypertension, Osteoarthritis (OA), Pneumonia, Rheumatoid Arthritis (RA), Thyroid Disorder Additional Past Medical History / Comment(s): migraines, diabetic neuropathy hands and feet, cataracts, limited ROM billy arm., occasional swelling of lower legs ., DVT- LEFT LEG 10/03 , back pain, hx colon polyp, states vomiting with 50 # wt loss in the last 6 months., hx fall with "scrape " on her knee. History of Any Multi-Drug Resistant Organisms: None Reported Past Surgical History: Heart Catheterization, Joint Replacement, Orthopedic Surgery, Tubal Ligation Additional Past Surgical History / Comment(s): right foot surgery, total left hip arthroplasty, lumbar puncture, R breast surgery for horse bite wound, Past Anesthesia/Blood Transfusion Reactions: No Reported Reaction, Motion Sickness Past Psychological History: ADD/ADHD, Anxiety, Bipolar, Depression Additional Psychological History / Comment(s): She states she did attempt suicide years ago by cutting her wrists. 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 smokes 1 PPD Past Drug Use History: None Reported - Past Family History Mother History Unknown: Yes Family Medical History: Unable to Obtain Additional Family Medical History / Comment(s): pt adopted-no hx Father History Unknown: Yes Additional Family Medical History / Comment(s): Pt was adopted. Medications and Allergies Home Medications Medication Instructions Recorded Confirmed Type Levothyroxine Sodium [Synthroid] 150 mcg PO DAILY 02/07/15 04/04/20 History traZODone HCL 100 mg PO HS PRN 10/23/16 04/04/20 History Atorvastatin Calcium [Lipitor] 80 mg PO HS 12/01/17 04/04/20 History Cholecalciferol [Vitamin D3 (25 2,000 unit PO DAILY 12/01/17 04/04/20 History Mcg = 1000 Iu)] Metoprolol Tartrate [Lopressor] 50 mg PO BID 12/01/17 04/04/20 History Multivitamins, Thera [Multivitamin 1 tab PO DAILY 12/01/17 04/04/20 History (formulary)] Isosorbide Mononitrate ER [Imdur] 60 mg PO DAILY 01/07/19 04/04/20 History Umeclidinium [place] [Incruse 1 puff INHALATION RT-DAILY 01/07/19 04/04/20 History Ellipta] cloNIDine HCL [Catapres] 0.1 mg PO BID 01/07/19 04/04/20 History Aspirin [Adult Low Dose Aspirin EC] 81 mg PO DAILY 12/04/19 04/04/20 History Biotin 10,000 mcg PO DAILY 12/04/19 04/04/20 History Cyanocobalamin [Vitamin B-12] 1,000 mcg PO DAILY 12/04/19 04/04/20 History Escitalopram [Lexapro] 10 mg PO PC-LUNCH 12/04/19 04/04/20 History Escitalopram [Lexapro] 20 mg PO QAM 12/04/19 04/04/20 History Glimepiride [Amaryl] 2 mg PO PC-LUNCH 12/04/19 04/04/20 History Ondansetron [Zofran] 4 mg PO Q8HR PRN 12/04/19 04/04/20 History lisinopriL 40 mg PO DAILY 12/04/19 04/04/20 History Albuterol Sulfate [Proair Hfa] 2 puff INHALATION RT-QID PRN 04/04/20 04/04/20 History Cetirizine HCl 10 mg PO DAILY 04/04/20 04/04/20 History Diclofenac Sodium [Voltaren] 50 mg PO TID 04/04/20 04/04/20 History Docusate [Colace] 100 mg PO DAILY PRN 04/04/20 04/04/20 History Hydrocodone/Acetaminophen [Vicodin 1 tab PO BID PRN 04/04/20 04/04/20 History ES 7.5-300 mg] Nitroglycerin Sl Tabs [Nitrostat] 0.4 mg SUBLINGUAL Q5M PRN 04/04/20 04/04/20 History [place]-3 Fatty Acids/Fish Oil [Fish 1 cap PO DAILY 04/04/20 04/04/20 History Oil 1,000 mg Softgel] busPIRone HCL 30 mg PO TID 04/04/20 04/04/20 History Allergies Allergy/AdvReac Type Severity Reaction Status Date / Time Penicillins Allergy Severe Itching Verified 04/04/20 16:47 Physical Exam Vitals: Vital Signs Temp Pulse Pulse Resp BP BP Pulse Ox 04/05/20 11:38 69 142/69 04/05/20 09:00 16 04/05/20 08:28 97.4 F L 63 16 180/74 96 04/05/20 07:52 56 L 04/05/20 07:35 56 L 04/05/20 03:00 97.9 F 56 L 15 157/77 95 04/04/20 21:00 97.8 F 69 16 139/73 95 04/04/20 18:53 97.8 F 53 L 16 159/77 95 04/04/20 18:11 60 18 138/74 95 04/04/20 16:06 55 L 04/04/20 15:53 98.7 F 55 L 18 138/73 95 Intake and Output 04/04/20 04/05/20 04/05/20 22:59 06:59 14:59 Intake Total 240 Balance 240 Intake: Oral 240 Other: Voiding Method Toilet Toilet Toilet # Voids 1 1 2 Weight 110.223 kg PHYSICAL EXAMINATION: GENERAL: The patient is alert and oriented x3, not in any acute distress. Well developed, well nourished. HEENT: Pupils are round and equally reacting to light. EOMI. No scleral icterus. No conjunctival pallor. Normocephalic, atraumatic. No pharyngeal erythema. No thyromegaly. CARDIOVASCULAR: S1 and S2 present. No murmurs, rubs, or gallops. PULMONARY: Chest is clear to auscultation, no wheezing or crackles. ABDOMEN: Soft, nontender, nondistended, normoactive bowel sounds. No palpable organomegaly. MUSCULOSKELETAL: No joint swelling or deformity. EXTREMITIES: No cyanosis, clubbing, or pedal edema. NEUROLOGICAL: Gross neurological examination did not reveal any focal deficits. SKIN: No rashes. Results CBC & Chem 7: 04/04/20 16:24 04/04/20 16:24 Labs: Abnormal Lab Results - Last 24 Hours (Table) 04/04/20 04/04/20 04/05/20 Range/Units 16:24 19:48 03:41 Glucose 101 H (74-99) mg/dL POC Glucose (mg/dL) 113 H (75-99) mg/dL Hemoglobin A1c 7.7 H (4.0-6.0) % Triglycerides (<150) mg/dL 04/05/20 04/05/20 04/05/20 Range/Units 03:41 06:23 10:57 Glucose (74-99) mg/dL POC Glucose (mg/dL) 162 H 112 H (75-99) mg/dL Hemoglobin A1c (4.0-6.0) % Triglycerides 160 H (<150) mg/dL Thrombosis Risk Factor Assmnt - Choose All That Apply Each Factor Represents 1 point: Abnormal pulmonary function (COPD), Age 41-60 years, Obesity (BMI >25) Thrombosis Risk Factor Assessment Total Risk Factor Score: 3 Thrombosis Risk Factor Assessment Level: Moderate Risk Assessment and Plan Plan: -Chest pain rule out a concurrent syndromes, unstable angina. Workup as mentioned in the history itself patient chest pain is atypical probably musculoskeletal from cervical degenerative disc disease patient will need the warm/cold compresses, nonsteroidal anti-inflammatory medications and physical therapy patient will follow with her PCP for these. -Continued nicotine use: Counseling was provided -Hypertension -Hyperlipidemia -Type 2 diabetes mellitus Patient will be discharged today.
--- NOTE | 2020-04-05 12:21 | P.DS ---
Providers Date of admission: 04/04/20 18:04 Attending physician: Francisco Javier Ruelas Consults: 04/04/20 18:04 Consult Physician Urgent Consulting Provider: Stanislav Galaviz Consult Reason/Comments: cp Do you want consulting provider notified?: Yes Primary care physician: Jay Jay Longo [facility] Course: As mentioned in HPI Plan - Discharge Summary Discharge Rx Participant: No New Discharge Prescriptions: Continue Levothyroxine Sodium [Synthroid] 150 mcg PO DAILY traZODone HCL 100 mg PO HS PRN PRN Reason: SLEEP Atorvastatin Calcium [Lipitor] 80 mg PO HS Metoprolol Tartrate [Lopressor] 50 mg PO BID Multivitamins, Thera [Multivitamin (formulary)] 1 tab PO DAILY Cholecalciferol [Vitamin D3 (25 Mcg = 1000 Iu)] 2,000 unit PO DAILY Isosorbide Mononitrate ER [Imdur] 60 mg PO DAILY cloNIDine HCL [Catapres] 0.1 mg PO BID Umeclidinium Orange [Incruse Ellipta] 1 puff INHALATION RT-DAILY lisinopriL 40 mg PO DAILY Aspirin [Adult Low Dose Aspirin EC] 81 mg PO DAILY Escitalopram [Lexapro] 10 mg PO PC-LUNCH Escitalopram [Lexapro] 20 mg PO QAM Ondansetron [Zofran] 4 mg PO Q8HR PRN PRN Reason: Nausea Glimepiride [Amaryl] 2 mg PO PC-LUNCH Cyanocobalamin [Vitamin B-12] 1,000 mcg PO DAILY Biotin 10,000 mcg PO DAILY Albuterol Sulfate [Proair Hfa] 2 puff INHALATION RT-QID PRN PRN Reason: Shortness Of Breath busPIRone HCL 30 mg PO TID Cetirizine HCl 10 mg PO DAILY Diclofenac Sodium [Voltaren] 50 mg PO TID Docusate [Colace] 100 mg PO DAILY PRN PRN Reason: Constipation Nitroglycerin Sl Tabs [Nitrostat] 0.4 mg SUBLINGUAL Q5M PRN PRN Reason: Chest Pain Hydrocodone/Acetaminophen [Vicodin ES 7.5-300 mg] 1 tab PO BID PRN PRN Reason: Pain [place]-3 Fatty Acids/Fish Oil [Fish Oil 1,000 mg Softgel] 1 cap PO DAILY Discharge Medication List Levothyroxine Sodium [Synthroid] 150 mcg PO DAILY 02/07/15 [History] traZODone HCL 100 mg PO HS PRN 10/23/16 [History] Atorvastatin Calcium [Lipitor] 80 mg PO HS 12/01/17 [History] Cholecalciferol [Vitamin D3 (25 Mcg = 1000 Iu)] 2,000 unit PO DAILY 12/01/17 [History] Metoprolol Tartrate [Lopressor] 50 mg PO BID 12/01/17 [History] Multivitamins, Thera [Multivitamin (formulary)] 1 tab PO DAILY 12/01/17 [History] Isosorbide Mononitrate ER [Imdur] 60 mg PO DAILY 01/07/19 [History] Umeclidinium Orange [Incruse Ellipta] 1 puff INHALATION RT-DAILY 01/07/19 [History] cloNIDine HCL [Catapres] 0.1 mg PO BID 01/07/19 [History] Aspirin [Adult Low Dose Aspirin EC] 81 mg PO DAILY 12/04/19 [History] Biotin 10,000 mcg PO DAILY 12/04/19 [History] Cyanocobalamin [Vitamin B-12] 1,000 mcg PO DAILY 12/04/19 [History] Escitalopram [Lexapro] 10 mg PO PC-LUNCH 12/04/19 [History] Escitalopram [Lexapro] 20 mg PO QAM 12/04/19 [History] Glimepiride [Amaryl] 2 mg PO PC-LUNCH 12/04/19 [History] Ondansetron [Zofran] 4 mg PO Q8HR PRN 12/04/19 [History] lisinopriL 40 mg PO DAILY 12/04/19 [History] Albuterol Sulfate [Proair Hfa] 2 puff INHALATION RT-QID PRN 04/04/20 [History] Cetirizine HCl 10 mg PO DAILY 04/04/20 [History] Diclofenac Sodium [Voltaren] 50 mg PO TID 04/04/20 [History] Docusate [Colace] 100 mg PO DAILY PRN 04/04/20 [History] Hydrocodone/Acetaminophen [Vicodin ES 7.5-300 mg] 1 tab PO BID PRN 04/04/20 [History] Nitroglycerin Sl Tabs [Nitrostat] 0.4 mg SUBLINGUAL Q5M PRN 04/04/20 [History] [place]-3 Fatty Acids/Fish Oil [Fish Oil 1,000 mg Softgel] 1 cap PO DAILY 04/04/20 [History] busPIRone HCL 30 mg PO TID 04/04/20 [History] Follow up Appointment(s)/Referral(s): Ezio Blackwood MD [STAFF PHYSICIAN] - 04/15/20 1:30 pm ([place]) Patient Instructions/Handouts: Chest Pain (DC), How to Stop Smoking (DC), Heart Healthy Diet (DC) Discharge Disposition: HOME SELF-CARE
[2020-04-05] MEDS ORDERED: ESCITALOPRAM 10 MG TAB PO SCH (13:30)
== END 2020-04-05 12:20 | disposition home or self-care (01) ==
LOC: EC 15:51 → 1SOBS 18:04
PROVIDERS: ADMIT Hospitalist; ATTEND Hospitalist
DX: R07.89 Other chest pain (principal); J44.9 Chronic obstructive pulmonary disease, unspecified; M79.7 Fibromyalgia; E78.5 Hyperlipidemia, unspecified; I11.0 Hypertensive heart disease with heart failure; E11.42 Type 2 diabetes mellitus with diabetic polyneuropathy; M19.90 Unspecified osteoarthritis, unspecified site; M06.9 Rheumatoid arthritis, unspecified; E07.9 Disorder of thyroid, unspecified; H26.9 Unspecified cataract; R29.898 Other symptoms and signs involving the musculoskeletal system; R63.4 Abnormal weight loss; F90.9 Attention-deficit hyperactivity disorder, unspecified type; F41.9 Anxiety disorder, unspecified; F31.9 Bipolar disorder, unspecified; R00.1 Bradycardia, unspecified; M54.2 Cervicalgia; G89.29 Other chronic pain; F60.3 Borderline personality disorder; E66.9 Obesity, unspecified; I50.9 Heart failure, unspecified; J84.10 Pulmonary fibrosis, unspecified; F17.210 Nicotine dependence, cigarettes, uncomplicated; Z71.6 Tobacco abuse counseling; Z79.890 Hormone replacement therapy; Z79.899 Other long term (current) drug therapy; Z79.82 Long term (current) use of aspirin; Z79.84 Long term (current) use of oral hypoglycemic drugs; Z79.891 Long term (current) use of opiate analgesic; Z88.0 Allergy status to penicillin; Z86.718 Personal history of other venous thrombosis and embolism; Z87.01 Personal history of pneumonia (recurrent); Z86.69 Personal history of other diseases of the nervous system and sense organs; Z86.010 Personal history of colon polyps; Z68.36 Body mass index [BMI] 36.0-36.9, adult; Z91.81 History of falling; Z98.890 Other specified postprocedural states; Z96.642 Presence of left artificial hip joint; Z98.51 Tubal ligation status; Z87.828 Personal history of other (healed) physical injury and trauma; Z87.898 Personal history of other specified conditions; Z91.5 Personal history of self-harm
CPT/HCPCS: 93005 ×2; 99285; 36415; 94640; 93306; 80061; 80053; 83735; 84484; 85025; 85610; 85730; 83036; 71046; G0378 ×2; S4990

== ENCOUNTER 2022-12-02 19:34 | Emergency (ER) | payer OTHER ==
--- NOTE | 2022-12-02 20:18 | ED ---
General Adult HPI - General Chief complaint: Weakness Stated complaint: Nausea, Vomitting Time Seen by Provider: 12/02/22 20:16 Source: patient, EMS Mode of arrival: EMS Limitations: no limitations - History of Present Illness Initial comments: Patient presents to the ED by ambulance for evaluation. Patient states that she feels generally weak and lightheaded. Patient states that she has had nausea and daily vomiting for the past 3 weeks or so. Patient states that her PCP thinks that it is because she takes Elrosa regularly, and she misses her a dose from time to time. Patient denies having any pain, fever or chills, headache, focal numbness/weakness/neuro deficit, chest pain or pressure, dyspnea, cough or cold symptoms, palpitations, syncope, abdominal pain, diarrhea or constipation, bloody or melanotic stool, hematemesis, dysuria/hematuria/urinary frequency/urinary symptoms, or any other symptoms or complaints. - Related Data Home Medications Medication Instructions Recorded Confirmed Atorvastatin Calcium [Lipitor] 80 mg PO HS 12/01/17 12/02/22 Escitalopram [Lexapro] 10 mg PO DAILY@1500 12/04/19 12/02/22 Escitalopram [Lexapro] 20 mg PO DAILY@1030 12/04/19 12/02/22 Glimepiride [Amaryl] 2 mg PO W/LUNCH 12/04/19 12/02/22 Ondansetron [Zofran] 4 mg PO DAILY PRN 12/04/19 12/02/22 lisinopriL 40 mg PO HS 12/04/19 12/02/22 Albuterol Sulfate [Proair Hfa] 2 puff INHALATION RT-QID PRN 04/04/20 12/02/22 Docusate [Colace] 200 mg PO HS 04/04/20 12/02/22 Nitroglycerin Sl Tabs [Nitrostat] 0.4 mg SUBLINGUAL Q5M PRN 04/04/20 12/02/22 Atomoxetine HCl [Strattera] 80 mg PO DAILY 12/02/22 12/02/22 Budesonide/Formoterol Fumarate 2 puff INHALATION RT-BID 12/02/22 12/02/22 [Symbicort 80-4.5 Mcg Inhaler] Dulaglutide [Trulicity] 1.5 mg SQ TU 12/02/22 12/02/22 Gabapentin [Neurontin] 100 mg PO TID 12/02/22 12/02/22 HYDROcodone/APAP 10-325MG [Elrosa 1 tab PO Q6H PRN 12/02/22 12/02/22 10-325] Isosorbide Mononitrate ER [Imdur] 30 mg PO DAILY 12/02/22 12/02/22 Levothyroxine Sodium [Synthroid] 125 mcg PO DAILY 12/02/22 12/02/22 Metoprolol Succinate (ER) [Toprol 50 mg PO DAILY 12/02/22 12/02/22 Xl] Nystatin 100,000Unit/gm Cream 1 applic TOPICAL BID PRN 12/02/22 12/02/22 [Mycostatin Cream] QUEtiapine FUMARATE [SEROquel XR] 400 mg PO HS 12/02/22 12/02/22 tiZANidine [Zanaflex] 4 mg PO BID PRN 12/02/22 12/02/22 traZODone HCL 150 mg PO HS PRN 12/02/22 12/02/22 traZODone HCL [Desyrel] 50 mg PO HS PRN 12/02/22 12/02/22 Allergies Allergy/AdvReac Type Severity Reaction Status Date / Time Penicillins Allergy Severe Itching Verified 12/02/22 22:05 Review of Systems ROS Statement: Those systems with pertinent positive or pertinent negative responses have been documented in the HPI. ROS Other: All systems not noted in ROS Statement are negative. Past Medical History Past Medical History: Chest Pain / Angina, Heart Failure, COPD, Diabetes Mellitus, Deep Vein Thrombosis (DVT), Eye Disorder, Fibromyalgia, Hyperl ipidemia, Hypertension, Osteoarthritis (OA), Pneumonia, Rheumatoid Arthritis (RA), Thyroid Disorder Additional Past Medical History / Comment(s): migraines, diabetic neuropathy hands and feet, cataracts, limited ROM billy arm., occasional swelling of lower legs ., DVT- LEFT LEG 10/03 , back pain, hx colon polyp, states vomiting with 50 # wt loss in the last 6 months., hx fall with "scrape " on her knee. History of Any Multi-Drug Resistant Organisms: None Reported Past Surgical History: Heart Catheterization, Joint Replacement, Orthopedic Surgery, Tubal Ligation Additional Past Surgical History / Comment(s): right foot surgery, total left hip arthroplasty, lumbar puncture, R breast surgery for horse bite wound, Past Anesthesia/Blood Transfusion Reactions: No Reported Reaction, Motion Sickness Past Psychological History: ADD/ADHD, Anxiety, Bipolar, Depression Smoking Status: Current every day smoker Past Alcohol Use History: Occasional Past Drug Use History: None Reported - Past Family History Mother History Unknown: Yes Family Medical History: Unable to Obtain Additional Family Medical History / Comment(s): pt adopted-no hx Father History Unknown: Yes Additional Family Medical History / Comment(s): Pt was adopted. General Exam Limitations: no limitations General appearance: alert, in no apparent distress Head exam: Present: normocephalic Eye exam: Present: normal appearance, PERRL, EOMI ENT exam: Present: mucous membranes moist Respiratory exam: Present: normal lung sounds bilaterally. Absent: respiratory distress, wheezes, rales, rhonchi, stridor Cardiovascular Exam: Present: regular rate, normal rhythm, normal heart sounds, other (Normal radial pulses bilaterally) GI/Abdominal exam: Present: soft. Absent: distended, tenderness, guarding Extremities exam: Absent: pedal edema Back exam: Absent: CVA tenderness (R), CVA tenderness (L) Neurological exam: Present: alert, oriented X3 Skin exam: Present: warm, dry, intact, normal color Course Vital Signs 12/02/22 12/02/22 12/02/22 19:35 19:45 20:00 Temperature 99.5 F Pulse Rate 89 84 83 Respiratory 20 20 20 Rate Blood Pressure 96/56 86/51 85/51 O2 Sat by Pulse 93 L 92 L 92 L Oximetry 12/02/22 12/02/22 12/02/22 20:30 20:50 21:00 Temperature Pulse Rate 72 87 86 Respiratory 18 20 20 Rate Blood Pressure 81/49 94/52 105/56 O2 Sat by Pulse 91 L 94 L 96 Oximetry 12/02/22 12/02/22 12/02/22 21:10 21:21 21:30 Temperature Pulse Rate 80 87 82 Respiratory 18 18 18 Rate Blood Pressure 97/63 109/56 102/65 O2 Sat by Pulse 97 95 96 Oximetry 12/02/22 12/02/22 12/02/22 21:34 22:00 22:30 Temperature Pulse Rate 84 79 71 Respiratory 18 18 18 Rate Blood Pressure 96/59 97/55 93/57 O2 Sat by Pulse 95 92 L 92 L Oximetry - Reevaluation(s) Reevaluation #1: 12/02/22 23:35 Patient has not had any vomiting while in the ED. Patient denies development of any new symptoms while in the ED. Patient has been hydrated with normal saline in the ED, and she states that she is feeling better. Patient's blood pressure has now improved to 110/67. Patient continues to have a soft and nontender abdominal exam. Patient is aware of her test results, and she feels comfortable being discharged home at this time. Patient states that her daughter will be picking her up from the ED tonight. Will discharge patient home with an EC starter pack for ODT Zofran. Patient was counseled about vomiting and weakness, and she was clearly explained return and follow-up instructions. Patient was instructed to follow up closely with her primary care provider. Patient feels comfortable this plan. EKG Findings - EKG Comments: EKG Findings:: ED physician interpretation (interpreted by me): Normal sinus rhythm, ventricular rate of 86 bpm, no ectopy, normal KS and QRS intervals, normal QT interval, normal axis, no ST or T-wave abnormality Medical Decision Making - Medical Decision Making Was pt. sent in by a medical professional or institution (, PA, VENDOR REPRESENTATIVES, urgent care, hospital, or fci...) When possible be specific @ -No Did you speak to anyone other than the patient for history (EMS, parent, family, police, friend...)? What history was obtained from this source @ -No Did you review nursing and triage notes (agree or disagree)? Why? @ -I reviewed and agree with nursing and triage notes Were old charts reviewed (outside hosp., previous admission, EMS record, old EKG, old radiological studies, urgent care reports/EKG's, fci records)? Report findings @ -No old charts were reviewed Differential Diagnosis (chest pain, altered mental status, abdominal pain women, abdominal pain men, vaginal bleeding, weakness, fever, dyspnea, syncope, headache, dizziness, GI bleed, back pain, seizure, CVA, palpatations, mental health, musculoskeletal)? @ -Nausea, vomiting, dehydration, electrolyte abnormality, GERD, gastroenteritis, gastritis, renal insufficiency, medication reaction, medication withdrawal, bowel obstruction, weakness, infection EKG interpreted by me (3pts min.). @ -As above X-rays interpreted by me (1pt min.). @ -None done CT interpreted by me (1pt min.). @ -None done U/S interpreted by me (1pt. min.). @ -None done What testing was considered but not performed or refused? (CT, X-rays, U/S, labs)? Why? @ -None What meds were considered but not given or refused? Why? @ -None Did you discuss the management of the patient with other professionals (professionals i.e. , PA, VENDOR REPRESENTATIVES, lab, RT, psych nurse, social work coordinator, labor conciliator, teacher, boating safety officer, protective services case worker)? Give summary @ -No Was smoking cessation discussed for >3mins.? @ -No Was critical care preformed (if so, how long)? @ -No Were there social determinants of health that impacted care today? How? (Homelessness, low income, unemployed, alcoholism, drug addiction, transportation, low edu. Level, literacy, decrease access to med. care, assisted, rehab)? @ -No Was there de-escalation of care discussed even if they declined (Discuss DNR or withdrawal of care, Hospice)? DNR status @ -No What co-morbidities impacted this encounter? (DM, HTN, Smoking, COPD, CAD, Cancer, CVA, ARF, Chemo, Hep., AIDS, mental health diagnosis, sleep apnea, morbid obesity)? @ -None Was patient admitted / discharged? Hospital course, mention meds given and route, prescriptions, significant lab abnormalities, going to OR and other pertinent info. @ -Patient's symptoms and blood pressure have improved with IV fluids and IV antiemetic medications in the ED. Patient has a soft and nontender abdominal exam. Other than mild renal insufficiency, which I suspect is likely due to mild dehydration, the patient's labs are fairly unremarkable. Patient has been hydrated with IV fluids in the ED. I do not suspect an emergent medical condition at this time. Will discharge patient home at this time with an EC starter pack of ODT Zofran. Patient feels comfortable with this plan. Undiagnosed new problem with uncertain prognosis? @ -No Drug Therapy requiring intensive monitoring for toxicity (Heparin, Nitro, Insulin, Cardizem)? @ -No Were any procedures done? @ -No Diagnosis/symptom? @ -Nausea/vomiting and generalized weakness Acute, or Chronic, or Acute on Chronic? @ -default Uncomplicated (without systemic symptoms) or Complicated (systemic symptoms)? @ -default Side effects of treatment? @ -No Exacerbation, Progression, or Severe Exacerbation? @ -No Poses a threat to life or bodily function? How? (Chest pain, USA, [place], pneumonia, PE, COPD, DKA, ARF, appy, cholecystitis, CVA, Diverticulitis, Homicidal, Suicidal, threat to staff... and all critical care pts) @ -No - Lab Data Result diagrams: 12/02/22 19:42 12/02/22 19:42 Lab Results 12/02/22 12/02/22 12/02/22 Range/Units 19:42 19:42 19:42 WBC 9.1 (3.8-10.6) k/uL RBC 4.07 (3.80-5.40) m/uL Hgb 11.9 (11.4-16.0) gm/dL Hct 36.8 (34.0-46.0) % MCV 90.5 (80.0-100.0) fL MCH 29.4 (25.0-35.0) pg MCHC 32.4 (31.0-37.0) g/dL RDW 13.8 (11.5-15.5) % Plt Count 259 (150-450) k/uL MPV 8.0 Neutrophils % 60 % Lymphocytes % 30 % Monocytes % 5 % Eosinophils % 4 % Basophils % 0 % Neutrophils # 5.5 (1.3-7.7) k/uL Lymphocytes # 2.7 (1.0-4.8) k/uL Monocytes # 0.5 (0-1.0) k/uL Eosinophils # 0.4 (0-0.7) k/uL Basophils # 0.0 (0-0.2) k/uL Sodium 139 (137-145) mmol/L Potassium 4.5 (3.5-5.1) mmol/L Chloride 105 (98-107) mmol/L Carbon Dioxide 26 (22-30) mmol/L Anion Gap 8 mmol/L BUN 15 (7-17) mg/dL Creatinine 1.26 H (0.52-1.04) mg/dL Est GFR (CKD-EPI)AfAm 52 (>60 ml/min/1.73 sqM) Est GFR (CKD-EPI)NonAf 45 (>60 ml/min/1.73 sqM) Glucose 156 H (74-99) mg/dL Plasma Lactic Acid Gaudencio (0.7-2.0) mmol/L Calcium 8.7 (8.4-10.2) mg/dL Magnesium 1.9 (1.6-2.3) mg/dL Total Bilirubin 0.6 (0.2-1.3) mg/dL AST 37 H (14-36) U/L ALT 19 (4-34) U/L Alkaline Phosphatase 84 (38-126) U/L Troponin I <0.012 (0.000-0.034) ng/mL Total Protein 6.1 L (6.3-8.2) g/dL Albumin 3.3 L (3.5-5.0) g/dL Lipase 49 (23-300) U/L 12/02/22 Range/Units 20:26 WBC (3.8-10.6) k/uL RBC (3.80-5.40) m/uL Hgb (11.4-16.0) gm/dL Hct (34.0-46.0) % MCV (80.0-100.0) fL MCH (25.0-35.0) pg MCHC (31.0-37.0) g/dL RDW (11.5-15.5) % Plt Count (150-450) k/uL MPV Neutrophils % % Lymphocytes % % Monocytes % % Eosinophils % % Basophils % % Neutrophils # (1.3-7.7) k/uL Lymphocytes # (1.0-4.8) k/uL Monocytes # (0-1.0) k/uL Eosinophils # (0-0.7) k/uL Basophils # (0-0.2) k/uL Sodium (137-145) mmol/L Potassium (3.5-5.1) mmol/L Chloride (98-107) mmol/L Carbon Dioxide (22-30) mmol/L Anion Gap mmol/L BUN (7-17) mg/dL Creatinine (0.52-1.04) mg/dL Est GFR (CKD-EPI)AfAm (>60 ml/min/1.73 sqM) Est GFR (CKD-EPI)NonAf (>60 ml/min/1.73 sqM) Glucose (74-99) mg/dL Plasma Lactic Acid Gaudencio 1.1 (0.7-2.0) mmol/L Calcium (8.4-10.2) mg/dL Magnesium (1.6-2.3) mg/dL Total Bilirubin (0.2-1.3) mg/dL AST (14-36) U/L ALT (4-34) U/L Alkaline Phosphatase (38-126) U/L Troponin I (0.000-0.034) ng/mL Total Protein (6.3-8.2) g/dL Albumin (3.5-5.0) g/dL Lipase (23-300) U/L Disposition Clinical Impression: Nausea and vomiting, Weakness Disposition: HOME SELF-CARE Condition: Stable Instructions (If sedation given, give patient instructions): Acute Nausea and Vomiting (ED), Weakness (ED) Additional Instructions: Return to the ER immediately should you develop any significant pain, persistent vomiting, a fever, shortness of breath, feeling dizzy or faint, or new or worsening symptoms. Follow up closely with your primary care provider. Is patient prescribed a controlled substance at d/c from ED?: No Referrals: Bianca Suarez NPC [Family Provider] - 1-2 days Time of Disposition: 23:37
[2022-12-02] MEDS ORDERED: SODIUM CHLORIDE 0.9% 1,000 ML IV ONE (20:21)
[2022-12-02] MEDS ORDERED: ONDANSETRON 4 MG/2 ML VIAL IVP STA (20:21)
[2022-12-02 20:54] LABS: Basophils % (A) 0 %; Eosinophils # (A) 0.4 k/uL (0-0.7); Eosinophils % (A) 4 %; HCT 36.8 % (34.0-46.0); HGB 11.9 gm/dL (11.4-16.0); Lymphocytes # (A) 2.7 k/uL (1.0-4.8); Lymphocytes % (A) 30 %; MCH 29.4 pg (25.0-35.0); MCHC 32.4 g/dL (31.0-37.0); MCV 90.5 fL (80.0-100.0); Monocytes # (A) 0.5 k/uL (0-1.0); Monocytes % (A) 5 %; Neutrophils # (A) 5.5 k/uL (1.3-7.7); Neutrophils % (A) 60 %; Platelet Count 259 k/uL (150-450); RBC 4.07 m/uL (3.80-5.40); RDW 13.8 % (11.5-15.5); WBC 9.1 k/uL (3.8-10.6)
[2022-12-02 20:59] LABS: ALT 19 U/L (4-34); African American GFR (CKD) 52 (>60 ml/min/1.73 sqM); Anion Gap 8 mmol/L; Blood Urea Nitrogen 15 mg/dL (7-17); Calcium 8.7 mg/dL (8.4-10.2); Carbon Dioxide 26 mmol/L (22-30); Chloride 105 mmol/L (98-107); Glucose 156 mg/dL (74-99); Lipase 49 U/L (23-300); Non-African American GFR(CKD) 45 (>60 ml/min/1.73 sqM); Sodium 139 mmol/L (137-145); Total Bilirubin 0.6 mg/dL (0.2-1.3)
[2022-12-02 21:14] LABS: AST 37 U/L (14-36); Albumin 3.3 g/dL (3.5-5.0); Alkaline Phosphatase 84 U/L (38-126); Magnesium 1.9 mg/dL (1.6-2.3); Potassium 4.5 mmol/L (3.5-5.1); Total Protein 6.1 g/dL (6.3-8.2)
[2022-12-02 21:37] VITALS: RESP 18
[2022-12-02] MEDS ORDERED: ONDANSETRON 4 MG ODT STARTER PACK 2 TAB BTL PO STA (23:29)
[2022-12-02 23:45] VITALS: BP 110/66; PULSE 70; TEMP 98.9
[2022-12-03 00:04] LABS: Appearance,Urine Cloudy (Clear); Bacteria,Urine Occasional /hpf; Bilirubin,Urine Negative (Negative); Blood,Urine Negative (Negative); Color,Urine Dark Yellow; Glucose,Urine (UA) Negative (Negative); Hyaline Casts,Urine 14 /lpf (0-2); Ketones,Urine Negative (Negative); Leukocyte Esterase,Urine Negative (Negative); Mucus,Urine Few /hpf; Nitrite,Urine Negative (Negative); Protein,Urine 1+ (Negative); RBC,Urine 2 /hpf (0-5); Specific Gravity,Urine 1.028 (1.001-1.035); Squamous Epithelial Cell,Urine 3 /hpf (0-4); Urobilinogen,Urine <2.0 mg/dL (<2.0); WBC,Urine 1 /hpf (0-5)
== END 2022-12-02 23:48 | disposition home or self-care (01) ==
LOC: EC 19:34
DX: R11.2 Nausea with vomiting, unspecified (principal); R53.1 Weakness; N28.9 Disorder of kidney and ureter, unspecified; E11.40 Type 2 diabetes mellitus with diabetic neuropathy, unspecified; E11.36 Type 2 diabetes mellitus with diabetic cataract; I11.0 Hypertensive heart disease with heart failure; I50.9 Heart failure, unspecified; J44.9 Chronic obstructive pulmonary disease, unspecified; E78.5 Hyperlipidemia, unspecified; F31.9 Bipolar disorder, unspecified; F41.9 Anxiety disorder, unspecified; E07.9 Disorder of thyroid, unspecified; M79.7 Fibromyalgia; M06.9 Rheumatoid arthritis, unspecified; F17.200 Nicotine dependence, unspecified, uncomplicated; Z79.84 Long term (current) use of oral hypoglycemic drugs; Z79.85 Long-term (current) use of injectable non-insulin antidiabetic drugs; Z79.51 Long term (current) use of inhaled steroids; Z79.890 Hormone replacement therapy; Z79.899 Other long term (current) drug therapy; Z88.0 Allergy status to penicillin
CPT/HCPCS: 36415; 93005; 80053; 83605; 83690; 83735; 84484; 85025; 81001; 99285; 96374; 96361 ×3; J2405; S0119

== ENCOUNTER → 2023-12-06 | Outpatient (CLI) | payer OTHER | END | disposition home or self-care (01) | LOC: LABPAT 15:07 | PROVIDERS: ATTEND Orthopaedic Surgery | DX: Z01.818 Encounter for other preprocedural examination | CPT/HCPCS: 87070 ==

== ENCOUNTER 2023-12-31 10:08 | Day surgery (SDC) | payer OTHER ==
--- NOTE | 2023-12-30 08:08 | P.HPOR ---
History of Present Illness H&P Date: 12/30/23 Chief Complaint: Left shoulder pain The patient is a 63-year-old wzlzy-iufk-xlmhetvy female who presents with left shoulder pain for the past 10 years worsening over the past year. She notes anterior and lateral pain with any overhead activity. She is having nighttime symptoms. She's tried therapy in addition to injections and medications with only temporary partial relief of her symptoms. Review of Systems Per HPI Past Medical History Past Medical History: Chest Pain / Angina, Heart Failure, COPD, Diabetes Mellitus, Deep Vein Thrombosis (DVT), Eye Disorder, Fibromyalgia, Hyperlipidemia, Hypertension, Osteoarthritis (OA), Pneumonia, Rheumatoid Arthritis (RA), Thyroid Disorder Additional Past Medical History / Comment(s): migraines, diabetic neuropathy hands and feet,limited ROM billy arm., occasional swelling of lower legs ., DVT- LEFT LEG 10/03 , back pain, hx colon polyp, states vomiting with 50 # wt loss in 2022 - "did not determine cause" History of Any Multi-Drug Resistant Organisms: None Reported Past Surgical History: Heart Catheterization, Joint Replacement, Orthopedic Surgery, Tubal Ligation Additional Past Surgical History / Comment(s): right foot surgery, total left hip arthroplasty, lumbar puncture, R breast surgery for horse bite wound, Rt. shoulder arthroplasty Past Anesthesia/Blood Transfusion Reactions: No Reported Reaction Additional Past Anesthesia/Blood Transfusion Reaction / Comment(s): pt. adopted & doesn't know family history Smoking Status: Current every day smoker - Past Family History Mother History Unknown: Yes Family Medical History: Unable to Obtain Additional Family Medical History / Comment(s): pt adopted-no hx Father History Unknown: Yes Additional Family Medical History / Comment(s): Pt was adopted. Medications and Allergies Home Medications Medication Instructions Recorded Confirmed Type Atorvastatin Calcium [Lipitor] 80 mg PO HS 12/01/17 12/24/23 History Escitalopram [Lexapro] 10 mg PO DAILY@1500 12/04/19 12/24/23 History Escitalopram [Lexapro] 20 mg PO DAILY@1030 12/04/19 12/24/23 History Ondansetron [Zofran] 4 mg PO DAILY PRN 12/04/19 12/24/23 History Albuterol Sulfate [Proair Hfa] 2 puff INHALATION RT-QID PRN 04/04/20 12/24/23 History Docusate [Colace] 200 mg PO HS 04/04/20 12/24/23 History Atomoxetine HCl [Strattera] 80 mg PO QAM 12/02/22 12/24/23 History Budesonide/Formoterol Fumarate 2 puff INHALATION RT-BID 12/02/22 12/24/23 History [Symbicort 80-4.5 Mcg Inhaler] Nystatin 100,000Unit/gm Cream 1 applic TOPICAL BID PRN 12/02/22 12/24/23 History [Mycostatin Cream] QUEtiapine FUMARATE [SEROquel XR] 400 mg PO QAM 12/02/22 12/24/23 History tiZANidine [Zanaflex] 4 mg PO BID PRN 12/02/22 12/24/23 History traZODone HCL 300 mg PO HS PRN 12/02/22 12/24/23 History Hydrocodone/Acetaminophen 1 tab PO Q6H PRN 12/24/23 12/24/23 History [Hydrocodone/Acetaminophen 7.5-325] Ibuprofen 800 mg PO Q8H PRN 12/24/23 12/24/23 History Levothyroxine Sodium [Synthroid] 150 mcg PO DAILY 12/24/23 12/24/23 History Multivitamin [Multivitamins Adult 1 tab PO DAILY 12/24/23 12/24/23 History Gummies] Tirzepatide [Mounjaro] 5 mg SQ Q7D 12/24/23 12/24/23 History busPIRone HCL [Buspar] 90 mg PO QAM 12/24/23 12/24/23 History lamoTRIgine [LaMICtal] 150 mg PO QAM 12/24/23 12/24/23 History Allergies Allergy/AdvReac Type Severity Reaction Status Date / Time Penicillins Allergy Severe Itching Verified 12/24/23 16:10 Physical Examination - Shoulder left Appearance: effusion Tenderness with palpation: anterior, bicipital groove Pain: with abduction, with forward flexion ROM: forward flexion: 80 degrees ROM: internal rotation: upper lumbar ROM: external rotation: 30 degrees Crepitus with motion: Yes Strength: abduction: 5/5 Strength: external rotation: 5/5 Tests: internal impingement tests: positive, external impingment tests: positive Results The patient is a well-developed well-nourished female approximately 5 foot 9, 213 pounds of endomorphic habitus. HEENT exam is nonfocal, neck is supple. She's tender about the left shoulder anterior glenohumeral joint. She has moderate crepitus. Santiago, Neer sign, and speed test are positive. Her distal neurovascular exam appears intact in the left upper extremity. - Diagnostic results Shoulder x-ray: image reviewed (X-rays of left shoulder obtain the office show severe glenohumeral joint space narrowing with [id number] changes along subchondral sclerosis.) Assessment and Plan Assessment: Severe left glenohumeral joint osteoarthrosis COPD Plan: I talked the patient at length regarding her condition along with treatment options. At this point she's quite symptomatically having pain, weakness, and mechanical symptoms related to her left glenohumeral joint osteoarthrosis despite conservative measures. After a thorough discussion she opts to proceed with surgery. We will plan to proceed with left total shoulder arthroplasty. Risks and benefits were discussed at length in layman's terms.
[~2023-12-31 10:08] MED LIST changes: -ACETAMINOPHEN TAB 500 MG TAB PO ONE; -DEXAMETHASONE SOD PHOSPHATE 10 MG/ML 1 ML VIAL IV ONE; -LIDOCAINE 1% 20 ML VIAL (10MG/ML) FOR IV START INTRADERMA PRN; -MELOXICAM 7.5 MG TAB PO ONE; -MIDAZOLAM 2 MG/2 ML VIAL IV PRN; -ONDANSETRON 4 MG/2 ML VIAL IVP ONE; -SCOPOLAMINE 1.5MG/72HR PATCH TRANSDERM ONE; +TRANEXAMIC 1,000 MG/100ML-NACL 1,000 MG in SALINE 1 100ML.BAG IVPB PRN; -TRANEXAMIC ACID 1,000 MG in SODIUM CHLORIDE 0.9% 100 ML IVPB ONE
[2023-12-31] MEDS: IV FLUID CONTINUATION 1,000 ML IV ONE (10:45)
[2023-12-31] MEDS: MELOXICAM 7.5 MG TAB PO PRN (10:57)
[2023-12-31] MEDS: DEXAMETHASONE SOD PHOSPHATE 4 MG/ML 1 ML VIAL IV ONE (10:58)
[2023-12-31] MEDS: ONDANSETRON 4 MG/2 ML VIAL IVP ONE (10:58)
[2023-12-31] MEDS: ACETAMINOPHEN TAB 500 MG TAB PO PRN (10:58)
[2023-12-31 10:59] LABS: Glucose,Whole Blood 121 mg/dL (70-110)
[2023-12-31 11:19] LABS: Prothrombin Time 11.1 sec (10.0-12.5)
[2023-12-31] MEDS: MIDAZOLAM 2 MG/2 ML VIAL IVP ONE (12:16)
[2023-12-31] MEDS: fentaNYL (PF) 50 MCG/ML 2 ML AMP IVP ONE (12:18)
[2023-12-31] MEDS ORDERED: fentaNYL (PF) 50 MCG/ML 2 ML AMP IVP PRN (12:26)
[2023-12-31] MEDS ORDERED: PROPOFOL 10 MG/ML 20 ML VIAL IV ONE (13:04)
[2023-12-31] MEDS ORDERED: ROPIVACAINE 5 MG/ML 30 ML VIAL ONE (13:04)
[2023-12-31] MEDS ORDERED: ROCURONIUM 10 MG/ML (5 ML VIAL) IV ONE (13:04)
[2023-12-31] MEDS ORDERED: PHENYLEPHRINE-0.9% NACL SYG 1,000 MCG/10 ML SYRINGE ONE (13:04)
[2023-12-31] MEDS ORDERED: TRANEXAMIC 1,000 MG/100ML-NACL PREMIX BAG ONE (13:04)
[2023-12-31] MEDS ORDERED: NEOSTIGMINE 1 MG/ML 10 ML VIAL ONE (13:04)
[2023-12-31] MEDS ORDERED: SUCCINYLCHOLINE CHLORIDE 200 MG/10 ML VIAL IV ONE (13:04)
[2023-12-31] MEDS ORDERED: GLYCOPYRROLATE 0.2 MG/ML 2 ML VIAL ONE (13:04)
[2023-12-31] MEDS ORDERED: LIDOCAINE 1% INJ 10MG/ML (20 ML MDV) ONE (13:04)
[2023-12-31] MEDS ORDERED: PHENYLEPHRINE 10 MG/ML VIAL ONE (13:04)
[2023-12-31] MEDS: ceFAZolin 1,000 MG in SODIUM CHLORIDE 0.9% 1,000 ML IRRIGATION ONE (13:17)
--- NOTE | 2023-12-31 14:10 | P.ANPRN ---
Procedure Note - Anesthesia - Nerve Block Performed Left Interscalene Single Time Out Performed: Yes (1216) Date of Procedure: 12/31/23 Procedure Start Time: 12:17 Procedure Stop Time: 12:23 Location of Patient: PreOp Indication: Acute Post-Operative Pain, Requested by Surgeon Specifically requested for management of pain by DrEnmanuel: Gregorio Zapata Sedation Type: Sedate with meaningful contact maintained Preparation: Sterile Prep Position: Supine Catheter: None Needle Types: Pajunk Needle Gauge: 21 Ultrasound used to visualize needle placement: Yes Ultrasound used to observe medication spread: Yes Injectate: 0.5% Ropivacaine (see comment for volume) (30cc) Blood Aspirated: No Pain Paresthesia on Injection Noted: No Resistance on Injection: Normal Image Stored and Saved: Yes Events: Uneventful and Well Tolerated
[2023-12-31] MEDS ORDERED: SENNOSIDES-DOCUSATE SODIUM 1 EACH TAB PO PRN (15:01)
[2023-12-31] MEDS ORDERED: HYDROcodone/APAP 5-325MG 1 EACH TAB PO PRN ×2 (15:01)
[2023-12-31] MEDS ORDERED: hydrOXYzine pamoate 25 MG CAP PO PRN (15:01)
[2023-12-31] MEDS ORDERED: ONDANSETRON 4 MG/2 ML VIAL IVP PRN (15:01)
[2023-12-31] MEDS ORDERED: HYDROmorphone 0.5 MG/0.5 ML SYRINGE IVP PRN (15:01)
--- NOTE | 2023-12-31 15:14 | P.OP ---
Date of Procedure: 12/31/23 Preoperative Diagnosis: Severe left glenohumeral joint osteoarthrosis Postoperative Diagnosis: Same Procedure(s) Performed: Left total shoulder arthroplasty Implants: [employer] size 12 press-fit humeral stem, size 12 body, 44 x 18 eccentric humeral head, 44 mm cemented central pegged glenoid. Anesthesia: brooks ORTA Surgeon: Gregorio Zapata Traveling Phlebotomist #1: Andrea Jiménez Estimated Blood Loss (ml): 200 Pathology: none sent Condition: stable Disposition: PACU Indications for Procedure: The patient is a 63-year-old female who presents with progressive left shoulder pain secondary to osteoarthrosis despite conservative measures. A discussion of the risks and benefits of operative intervention versus continued conservative measures was made with the patient. She opted to proceed with surgery. Operative risks include infection, neurovascular injury, development of blood clots, fracture, possible component loosening, possible component failure, and possible need for subsequent procedures was discussed. Informed consent was obtained. Operative Findings: As below Description of Procedure: The patient was brought to the operating room, and after induction of general anesthesia was placed in the beachchair position. The bony prominences were appropriately padded. The left upper extremity was prepped and draped in normal fashion. A deltopectoral incision was then made lateral to the coracoid process extending approximately 12 cm. The skin was incised sharply. Subcutaneous tissues were divided bluntly. Electrocautery was used for hemostasis. The deltopectoral interval was identified and the cephalic vein gently retracted laterally with the deltoid. Subdeltoid adhesions were bluntly dissected. A self-retaining retractor was placed. The clavipectoral fascia was opened and the conjoined tendon gently retracted medially. The upper one third of the pectoralis major was released to help facilitate exposure. The biceps was identified and the sheath was opened. The rotator interval was opened. The biceps was tenotomized and allowed to retract distally. A subscapularis peel was performed and this was tagged with #2 Ethibond. The humeral head was then exposed releasing the capsule off the humeral neck. The shoulder was gently dislocated. A starting hole was made in the head in line with the humeral shaft. The shaft was reamed by hand up to 12 mm. There was good distal chatter. The cutting guide was placed planning on 8 cut flush with the rotator cuff insertion and 30 of retroversion. The cutting block was pinned in place. The humeral head cut was then made. This measured most appropriately at 44 x 18 mm. Residual inferior osteophytes were carefully removed flush with the minto cortical bone. A posterior glenoid retractor was placed. The glenoid was then exposed releasing the labrum from the 6-12 o'clock position. Residual labral tissue was removed. The glenoid sized most appropriate 44 mm. A guidewire was then inserted planning on the appropriate version. The glenoid was reamed down to a bleeding bony surface. The central pedicle was drilled. The alignment guide was placed in the peripheral peg holes drilled. The trial size 44 mm glenoid was placed and was fully seated. There was good anterior to posterior and inferior to superior fit. The trial component was removed. Pulsatile lavage was utilized. The bony surface was dried. The peripheral peg holes were then pressurized with cement utilizing a syringe. Excess cement was removed. A central peg glenoid was then placed and was fully seated. This was gently impacted. This was held in place until the cement had sufficiently hardened. Attention was then paid again towards preparing the proximal humerus. The appropriate broach was placed in 30 of retroversion and was fully seated. An eccentric 44 x 18 mm humeral head was placed. The shoulder was gently reduced. It was taken through a range of motion. It was felt to be stable in flexion and extension with internal and external rotation. I felt there was adequate voodoo of soft tissue tension. The shoulder was gently dislocated. The trial components were then removed. A #2 Ethibond was placed laterally for reattachment of the subscapularis. The humeral stem was inserted in 30 of retroversion and was fully seated. There was good rotational stability. The eccentric 44 x 18 mm humeral head was gently impacted. The shoulder was then gently reduced and taken through range of motion and was felt to be stable. Pulsatile lavage was utilized. Lesser tuberosity was reattached utilizing #2 Ethibond suture. The rotator interval was closed with #2 Ethibond suture. She had minimal drainage at this point therefore a deep drain was not placed. The deltopectoral interval was closed with interrupted 2-0 Vicryl sutures. The subcu tissues were reapproximated with interrupted 2-0 Vicryl sutures. The skin was reprepped with 3-0 subcuticular Prolene suture. Steri-Strips were applied. A sterile dressing was applied in addition to a sling. The patient was then awoken from general anesthesia and transferred to recovery room in good condition. Blood loss was estimated at 200 mL. No complications were incurred. Sponge and needle counts were correct at the end of the case. Andrea ROSAS assisted during the major components of the case to include positioning, exposure, resection, implantation, and closure.
[2023-12-31 15:26] LABS: Glucose,Whole Blood 160 mg/dL (70-110)
--- NOTE | 2023-12-31 15:48 | XR ---
EXAMINATION TYPE: XR shoulder limited LT DATE OF EXAM: 12/31/2023 3:28 PM CLINICAL INDICATION: Female, 63 years old with history of s/p left total shoulder arthroplasty; [facility] COMPARISON: None TECHNIQUE: XR shoulder limited LT; examined in AP projections. FINDINGS: Left shoulder arthroplasty with hardware intact. No evidence of fracture. Diffuse haziness to the venu ulders left upper lung. Subcutaneous lucencies compatible with recent surgery. No evidence of fractur e. IMPRESSION: 1. Left shoulder arthroplasty appear intact. No evidence of fracture. 2. Haziness the lungs correlate for atelectasis versus pulmonary edema. [facility], , 12/31/2023 3:46 PM
[2023-12-31] MEDS: LACTATED RINGERS 1,000 ML IV SCH (17:44)
[2023-12-31] MEDS: MIDAZOLAM 2 MG/2 ML VIAL IM ONE (17:45)
[2023-12-31 18:12] LABS: Basophils % (A) 0 %; Eosinophils % (A) 0 %; HCT 41.2 % (34.0-46.0); HGB 12.8 gm/dL (11.4-16.0); Hypochromasia Moderate; Lymphocytes # (A) 0.9 k/uL (1.0-4.8); Lymphocytes % (A) 5 %; MCH 29.1 pg (25.0-35.0); MCV 94.1 fL (80.0-100.0); Mean Platelet Volume 6.7; Monocytes # (A) 0.4 k/uL (0-1.0); Monocytes % (A) 3 %; Neutrophils % (A) 92 %; Platelet Count 307 k/uL (150-450); RBC 4.38 m/uL (3.80-5.40); WBC 17.4 k/uL (3.8-10.6)
[2023-12-31 20:48] LABS: Glucose,Whole Blood 202 mg/dL (70-110)
[2023-12-31] MEDS: HYDROcodone/APAP 7.5-325MG 1 EACH TAB PO PRN (22:14)
[2024-01-01] MEDS: HYDROmorphone 0.5 MG/0.5 ML SYRINGE IVP PRN (03:23)
[2024-01-01 06:26] LABS: Glucose,Whole Blood 137 mg/dL (70-110)
[2024-01-01 08:04] VITALS: BP 147/78; RESP 16
[2024-01-01] MEDS ORDERED: ALBUTEROL NEBULIZED 2.5 MG/3 ML INHALATION PRN (09:39)
[2024-01-01] MEDS ORDERED: NYSTATIN 100,000UNIT/GM CREAM 30 GM TUBE TOPICAL PRN (09:39)
[2024-01-01] MEDS ORDERED: traZODone HCL 100 MG TAB PO PRN (09:39)
[2024-01-01] MEDS ORDERED: ONDANSETRON 4 MG TAB PO PRN (09:39)
--- NOTE | 2024-01-01 10:06 | XR ---
EXAMINATION TYPE: XR chest 1V portable DATE OF EXAM: 01/01/2024 COMPARISON: 04/04/2020 HISTORY: Shortness of breath TECHNIQUE: Single frontal view of the chest is obtained. FINDINGS: Worsened interstitial and subsegmental changes in bilateral lung bases. Heart size normal. Bilateral postsurgical change of the shoulders. Degenerative changes in the spine. Biapical pleural thickening. Question subcutaneous air in the left shoulder soft tissues. IMPRESSION: 1. COPD with pulmonary fibrosis. Left basilar atelectasis favored over infiltrate. 2. There is a BE air in the soft tissues of the left shoulder was could be related to recent surgery or post infectious. Correlate clinically. [facility], , 01/01/2024 10:04 AM
[2024-01-01] MEDS: ESCITALOPRAM 20 MG TAB PO SCH (10:44)
[2024-01-01] MEDS: NICOTINE 21MG/24HR PATCH TRANSDERM SCH (10:44)
[2024-01-01] MEDS: busPIRone HCl 10 MG TAB PO SCH (10:44)
[2024-01-01] MEDS: lamoTRIgine 100 MG TAB PO SCH (10:44)
[2024-01-01] MEDS: QUEtiapine 200 MG TAB PO SCH (10:44)
[2024-01-01] MEDS: MULTIVITAMINS, THERA 1 EACH TAB PO SCH (10:45)
[2024-01-01] MEDS ORDERED: IPRATROPIUM-ALBUTEROL 3 ML NEB INHALATION PRN (10:48)
[2024-01-01] MEDS: SYMBICORT 80-4.5 MCG INHALER INHALATION SCH (12:13)
[2024-01-01] MEDS: IPRATROPIUM-ALBUTEROL 3 ML NEB INHALATION SCH (12:15)
[2024-01-01 12:18] VITALS: PULSE 78
--- NOTE | 2024-01-01 12:25 | P.DS ---
Providers Date of admission: 12/31/2023 Expected date of discharge: 01/01/24 Attending physician: Gregorio Zapata Consults: 12/31/23 15:04 Consult Physician Routine Consulting Provider: Francisco Javier Ruelas Consult Reason/Comments: Medical Management s/p left total shoulder arthroplasty Do you want consulting provider notified?: Yes Primary care physician: Jay Jay Longo Hospital Course: Date of admission: 12/31/2023 Date of discharge: 01/01/2024 Admission diagnosis: Severe left glenohumeral osteoarthrosis Discharge diagnosis: Same Attending physician: Dr. Zapata Surgical procedures: Left total shoulder arthroplasty Brief history: Patient is a 63-year-old female with a history of severe left glenohumeral osteoarthrosis. At this point patient has failed conservative treatment measures and has opted to proceed with a elective left total shoulder arthroplasty. Hospital course: Details of patient's surgery can be found in operative report. Patient tolerated the procedure well and was subsequently transported to orthopedic floor. Patient's orthopeidc and medical care was provided daily. Patient had daily laboratory tests performed for evaluation of overall blood counts. Patient had daily physical therapy to include strengthening range of motion as well as education with walker ambulation. Patient was treated with aspirin for their postoperative DVT prophylaxis during their inpatient stay. Patient was noted to have a relatively uneventful postoperative course. Patient reported satisfactory pain control with oral pain medications by postoperative day 1. Patient showed satisfactory progress with physical therapy. Patient moved steadily through the program and had no difficulty meeting the goals by postoperative day 1. Given patient's otherwise satisfactory course and having met physical therapy goals, plan is to discharge patient to see on postoperative day 1. Discharge condition/disposition: Patient will be discharged [home] in stable condition. Discharge medications: Instructions are given on resumption of patient's normal daily medications per primary care recommendation, in addition patient will be prescribed [place]; senna; patient has aspirin at home to take 81 mg twice daily x 30 days. Orthopedic Discharge Instructions: 1. Wound care and infection precautions, keep incision dry and covered while showering, no lotions, creams, moisturizers. No soaking, pools, hot tubs. Do not scrub over incision. 2. Non-weight bearing left upper extremity until follow-up. 3. Ice when necessary. Do not exceed 20 minutes per hour with ice pack. 4. Utilize sling to the left upper extremity until seen at first follow up appointment. 5. Pain meds and anticoagulants per prescription. 6. Pain medication has potential to cause constipation. Increase oral fluid and fiber intake. Contact primary care provider if you have not had a bowel movement within 48 hours after discharge. 7. No anti-inflammatory medication until discussed at first post operative visit, this including Motrin, Aleve, Mobic, Diclofenac. 8. Follow up in office at 2 weeks postop with Jay Jay Coelho PA-C / Andrea Jiménez PA-C 9. Follow up with your primary care doctor 7-10 days after discharge. 10. Contact [facility] with any questions, . Keep incision clean, dry, intact. While showering, cover steri-strips with Saran wrap. Keep steri-strips on until follow-up appointment in office in 2 weeks. Patient has aspirin at home. Patient to take 81 mg twice a day for 3 days for DVT prophylaxis Assessment: Severe left glenohumeral joint osteoarthrosis Procedures: Left total shoulder arthroplasty Patient Condition at Discharge: Good Plan - Discharge Summary Discharge Rx Participant: Yes New Discharge Prescriptions: New Sennosides/Docusate Sodium [Senna Plus 8.6-50 mg Softgel] 1 each PO DAILY #20 capsule HYDROcodone/APAP 7.5-325MG [[place] 7.5-325] 1 tab PO Q6HR PRN #28 tab PRN Reason: Pain No Action Atorvastatin Calcium [Lipitor] 80 mg PO HS Escitalopram [Lexapro] 10 mg PO DAILY@1500 Escitalopram [Lexapro] 20 mg PO DAILY@1030 Ondansetron [Zofran] 4 mg PO DAILY PRN PRN Reason: Nausea Albuterol Sulfate [Proair Hfa] 2 puff INHALATION RT-QID PRN PRN Reason: Shortness Of Breath Docusate [Colace] 200 mg PO HS tiZANidine [Zanaflex] 4 mg PO BID PRN PRN Reason: Muscle Pain Ibuprofen 800 mg PO Q8H PRN PRN Reason: Muscle Spasm busPIRone HCL [Buspar] 90 mg PO QAM Tirzepatide [Mounjaro] 5 mg SQ Q7D Levothyroxine Sodium [Synthroid] 150 mcg PO DAILY Hydrocodone/Acetaminophen [Hydrocodone/Acetaminophen 7.5-325] 1 tab PO Q6H PRN PRN Reason: Pain Multivitamin [Multivitamins Adult Gummies] 1 tab PO DAILY traZODone HCL 300 mg PO HS PRN PRN Reason: SLEEP Budesonide/Formoterol Fumarate [Symbicort 80-4.5 Mcg Inhaler] 2 puff INHALATION RT-BID QUEtiapine FUMARATE [SEROquel XR] 400 mg PO QAM Nystatin 100,000Unit/gm Cream [Mycostatin Cream] 1 applic TOPICAL BID PRN PRN Reason: Rash Atomoxetine HCl [Strattera] 80 mg PO QAM lamoTRIgine [LaMICtal] 150 mg PO QAM Discharge Medication List Atorvastatin Calcium [Lipitor] 80 mg PO HS 12/01/17 [History] Escitalopram [Lexapro] 10 mg PO DAILY@1500 12/04/19 [History] Escitalopram [Lexapro] 20 mg PO DAILY@1030 12/04/19 [History] Ondansetron [Zofran] 4 mg PO DAILY PRN 12/04/19 [History] Albuterol Sulfate [Proair Hfa] 2 puff INHALATION RT-QID PRN 04/04/20 [History] Docusate [Colace] 200 mg PO HS 04/04/20 [History] Atomoxetine HCl [Strattera] 80 mg PO QAM 12/02/22 [History] Budesonide/Formoterol Fumarate [Symbicort 80-4.5 Mcg Inhaler] 2 puff INHALATION RT-BID 12/02/22 [History] Nystatin 100,000Unit/gm Cream [Mycostatin Cream] 1 applic TOPICAL BID PRN 12/02/22 [History] QUEtiapine FUMARATE [SEROquel XR] 400 mg PO QAM 12/02/22 [History] tiZANidine [Zanaflex] 4 mg PO BID PRN 12/02/22 [History] traZODone HCL 300 mg PO HS PRN 12/02/22 [History] Hydrocodone/Acetaminophen [Hydrocodone/Acetaminophen 7.5-325] 1 tab PO Q6H PRN 12/24/23 [History] Ibuprofen 800 mg PO Q8H PRN 12/24/23 [History] Levothyroxine Sodium [Synthroid] 150 mcg PO DAILY 12/24/23 [History] Multivitamin [Multivitamins Adult Gummies] 1 tab PO DAILY 12/24/23 [History] Tirzepatide [Mounjaro] 5 mg SQ Q7D 12/24/23 [History] busPIRone HCL [Buspar] 90 mg PO QAM 12/24/23 [History] lamoTRIgine [LaMICtal] 150 mg PO QAM 12/24/23 [History] HYDROcodone/APAP 7.5-325MG [[place] 7.5-325] 1 tab PO Q6HR PRN #28 tab 01/01/24 [Rx] Sennosides/Docusate Sodium [Senna Plus 8.6-50 mg Softgel] 1 each PO DAILY #20 capsule 01/01/24 [Rx] Follow up Appointment(s)/Referral(s): Andrea Jiménez, STUART [PHYSICIAN SOLE INKER] - 2 Weeks Patient Instructions/Handouts: Shoulder Arthroplasty (GEN) Activity/Diet/Wound Care/Special Instructions: Orthopedic Discharge Instructions: 1. Wound care and infection precautions, keep incision dry and covered while showering, no lotions, creams, moisturizers. No soaking, pools, hot tubs. Do not scrub over incision. 2. Non-weight bearing left upper extremity until follow-up. 3. Ice when necessary. Do not exceed 20 minutes per hour with ice pack. 4. Utilize sling to the left upper extremity until seen at first follow up appointment. 5. Pain meds and anticoagulants per prescription. 6. Pain medication has potential to cause constipation. Increase oral fluid and fiber intake. Contact primary care provider if you have not had a bowel movement within 48 hours after discharge. 7. No anti-inflammatory medication until discussed at first post operative visit, this including Motrin, Aleve, Mobic, Diclofenac. 8. Follow up in office at 2 weeks postop with Jay Jay Coelho PA-C / Andrea Jiménez PA-C 9. Follow up with your primary care doctor 7-10 days after discharge. 10. Contact [facility] with any questions, . Keep incision clean, dry, intact. While showering, cover steri-strips with Saran wrap. Keep steri-strips on until follow-up appointment in office in 2 weeks. Patient has aspirin at home. Patient to take 81 mg twice a day for 3 days for DVT prophylaxis Discharge Disposition: HOME SELF-CARE
--- NOTE | 2024-01-01 12:29 | P.PN ---
Subjective Progress Note Date: 01/01/24 Principal diagnosis: Severe left glenohumeral osteoarthrosis Patient was seen at bedside this morning sitting up in chair with dressing present to left shoulder and sling present to left upper extremity. Patient says she is looking forward to going home later today. She says pain is controlled with [place]. Patient says she does have aspirin at home. Patient denies chest pain, fever, shortness of breath, nausea, vomiting, change in vision, loss of bowel/bladder control. Objective - Vital Signs Vital signs: Vital Signs Temp 99.0 F 01/01/24 07:04 Pulse 83 01/01/24 07:04 Resp 16 01/01/24 07:04 BP 147/78 01/01/24 07:04 Pulse Ox 90 L 01/01/24 07:04 FiO2 Intake & Output 12/31/23 01/01/24 01/01/24 18:59 06:59 18:59 Intake Total 751 Output Total 200 Balance 551 Weight 96.615 kg Intake: IV 751 Output: Estimated Blood Loss 200 Other: Voiding Method Toilet # Voids 1 2 - Exam Left shoulder: Incision is clean, dry, and intact. The bulky dressing is in good condition. There is minimal soft tissue swelling and ecchymosis surrounding the medial and lateral aspects of the incision. Calf is soft, no tenderness with palpation. Plantar flexion, dorsiflexion, EHL, FHL are intact. Sensory exam to light touch throughout the extremity is intact, dorsal pedis pulses 2+. - Labs CBC & Chem 7: 12/31/23 17:55 Labs: Abnormal Lab Results - Last 24 Hours (Table) 12/31/23 12/31/23 12/31/23 Range/Units 15:25 17:55 20:47 WBC 17.4 H (3.8-10.6) k/uL Neutrophils # 16.0 H (1.3-7.7) k/uL Lymphocytes # 0.9 L (1.0-4.8) k/uL POC Glucose (mg/dL) 160 H 202 H (70-110) mg/dL 01/01/24 Range/Units 06:22 WBC (3.8-10.6) k/uL Neutrophils # (1.3-7.7) k/uL Lymphocytes # (1.0-4.8) k/uL POC Glucose (mg/dL) 137 H (70-110) mg/dL Assessment and Plan Assessment: 1. Severe left glenohumeral osteoarthrosis -Postop day 1 status post left total shoulder arthroplasty Plan: 1. Severe left glenohumeral osteoarthrosis -left total shoulder arthroplasty form yesterday, 12/31/2023. Patient stable bedside this morning. Sling present to the left upper extremity and dressing present over left shoulder. Nonweightbearing left upper extremity. Discharge home today. 2. Appreciate medical management 3 Pain management -Canovanas 4. DVT prophylaxis -aspirin 5. GI prophylaxis - senna 6. PT/OT -nonweightbearing left upper extremity. Maintain in sling. Okay to perform gentle range of motion exercises left elbow and left wrist. 7. Encourage incentive spirometer use 8. Discharge planning -discharge home today Time with Patient: Less than 30
[2024-01-01 12:42] VITALS: TEMP 98.6
[2024-01-01 13:12] LABS: Appearance,Urine Cloudy (Clear); Bacteria,Urine Many /hpf; Bilirubin,Urine Negative (Negative); Blood,Urine Small (Negative); Color,Urine Colorless; Glucose,Urine (UA) Negative (Negative); Ketones,Urine Negative (Negative); Leukocyte Esterase,Urine Negative (Negative); Mucus,Urine Rare /hpf; Nitrite,Urine Negative (Negative); Protein,Urine Negative (Negative); RBC,Urine 4 /hpf (0-5); Specific Gravity,Urine 1.014 (1.001-1.035); Squamous Epithelial Cell,Urine 5 /hpf (0-4); Urobilinogen,Urine <2.0 mg/dL (<2.0); WBC,Urine 5 /hpf (0-5)
[2024-01-01] MEDS: ASPIRIN 325 MG TAB PO STA (13:47)
[2024-01-01] MEDS ORDERED: ESCITALOPRAM 10 MG TAB PO SCH (15:00)
[2024-01-01] MEDS ORDERED: DOCUSATE 100 MG CAP PO SCH (21:00)
[2024-01-01] MEDS ORDERED: ATORVASTATIN 80 MG TAB PO SCH (21:00)
--- NOTE | 2024-01-01 23:56 | CONS ---
CONSULTATION REASON FOR CONSULTATION: Advice regarding COPD and other medical issues, requested by Orthopedics. HISTORY OF PRESENT ILLNESS: This is a 63-year-old woman with a past history of multiple medical problems including COPD, CHF, DVT, underwent left shoulder arthroplasty. The patient improved significantly. No chest pain. No palpitations. No fever. No shortness of breath. PAST MEDICAL HISTORY: Reviewed include COPD, CHF, DVT, rest of the chart is also reviewed. HOME MEDICATIONS: Reviewed include Mounjaro, dose and rest of medications reviewed. ALLERGIES: Penicillin. FAMILY HISTORY: The patient is adopted. SOCIAL HISTORY: Smoking. REVIEW OF SYSTEMS: A 14-point review of systems is negative except as mentioned earlier. PHYSICAL EXAMINATION: VITAL SIGNS: Pulse 83, blood pressure 147/70, and respirations 16. HEENT: Conjunctivae normal. NECK: No JVD. CARDIOVASCULAR: S1, S2. RESPIRATIONS: Breath sounds diminished at the bases. No rhonchi. No crackles. ABDOMEN: Soft and nontender. LEGS: No edema. No cyanosis. NERVOUS SYSTEM: Nonfocal. SHOULDER: Left shoulder status post arthroplasty. LABORATORY DATA: . ASSESSMENT: 1. Status post left shoulder arthroplasty. 2. Increased WBC, possibly reactive. 3. History of chronic obstructive pulmonary disease. 4. Diabetes mellitus, type 2. 5. History of deep vein thrombosis. 6. Multiple complex medical issues. RECOMMENDATIONS AND DISCUSSION: This 63-year-old woman, who presented with multiple complex medical issues. We will monitor the patient closely. Continue the current medications. Continue symptomatic treatment. Otherwise, resume the home medications. DVT prophylaxis. Recommend a close followup with primary physician as outpatient. Rest of the recommendations per Orthopedic Surgery. Further recommendations to follow. MMODL / IJN: [id number] /
[2024-01-02] MEDS ORDERED: LEVOTHYROXINE 75 MCG TAB PO SCH (06:30)
[2024-01-02] MEDS ORDERED: Atomoxetine Hcl [Strattera] 80 MG Capsule PO SCH (09:00)
== END 2024-01-01 14:23 | disposition home or self-care (01) ==
LOC: OR 10:08 → 4SSUR 14:52 → OR 01-01 14:23
PROVIDERS: ATTEND Orthopaedic Surgery
DX: M19.012 Primary osteoarthritis, left shoulder (principal); I50.9 Heart failure, unspecified; J44.9 Chronic obstructive pulmonary disease, unspecified; E11.9 Type 2 diabetes mellitus without complications; I11.0 Hypertensive heart disease with heart failure; M06.9 Rheumatoid arthritis, unspecified; E07.9 Disorder of thyroid, unspecified; Z87.891 Personal history of nicotine dependence; Z88.0 Allergy status to penicillin; E78.5 Hyperlipidemia, unspecified
CPT/HCPCS: 23472; 94640; 64415; 85025; 85610; 85730; 81001; 73020; 71045; C1713; C1776; S4990; J2250; J0330; J1100; J2710; J0690 ×3; J2003; J3010; J2795; J2704; J1171; J2371 ×2; J1596